=== PATIENT | male | born 1935 | race Caucasian/White ===

== ENCOUNTER 2017-06-07 06:37 | Emergency (ER) | payer MEDICARE ==
[~2017-06-07] VITALS: Ht 172.7 cm; Wt 88.5 kg
[2017-06-07] MEDS ORDERED: ATORVASTATIN CA40 MG PO (06:55)
[2017-06-07] MEDS ORDERED: COZAAR 50 MG TA50 M2 PO (06:55)
[2017-06-07] MEDS ORDERED: LOPRESSOR50 PO (06:56)
[2017-06-07] MEDS ORDERED: METFORMIN HCL500 MG PO (06:56)
[2017-06-07] MEDS ORDERED: REQUIP 1 MG TABL1 M1 PO (06:56)
[2017-06-07] MEDS ORDERED: OMEPRAZOLE40 MG PO (06:56)
[2017-06-07 08:08] VITALS: BP 126/80
== END 2017-06-07 08:10 | disposition home or self-care (01) ==
LOC: M.ERS 06:37
DX: S01.01XA Laceration without foreign body of scalp, initial encounter (principal); I10 Essential (primary) hypertension; E78.00 Pure hypercholesterolemia, unspecified; G25.81 Restless legs syndrome; Z87.442 Personal history of urinary calculi; Z85.46 Personal history of malignant neoplasm of prostate; Z88.8 Allergy status to other drugs, medicaments and biological substances; W01.190A Fall on same level from slipping, tripping and stumbling with subsequent striking against furniture, initial encounter; Y93.89 Activity, other specified; Y92.89 Other specified places as the place of occurrence of the external cause; Y99.8 Other external cause status

== ENCOUNTER → 2017-10-23 | Outpatient (CLI) | payer MEDICARE ==
[~2017-10-23] MED LIST: ASPIR 8181 MG PO; ATORVASTATIN CA40 MG PO; COZAAR 50 MG TA50 M2 PO; LOPRESSOR50 PO; METFORMIN HCL500 MG PO; OMEPRAZOLE40 MG PO; PLAVIX 75 MG TA75 M1 PO; REQUIP 1 MG TABL1 M1 PO; VITAMINC500 PO
[2017-10-23 09:34] LABS: CALCIUM 9.3 mg/dL (8.5-10.1); CREATININE 1.1 mg/dL (0.6-1.3); POTASSIUM 4.1 mmol/L (3.5-5.1)
== END ==
LOC: M.LAB 08:22
PROVIDERS: Nurse Practitioner
DX: I50.31 Acute diastolic (congestive) heart failure (principal)

== ENCOUNTER → 2017-11-13 | Outpatient (CLI) | payer MEDICARE ==
--- NOTE | 2017-11-18 08:09 | PF ---
[address] [address] PULMONARY FUNCTION REPORT Name: ERLINDA CRUZ Room: [facility]#: [id number] Admission: 11/13/17 Attend Phys: Margo Sandoval RN Discharge: Date of : 39 Report #: [id number] THIS REPORT FOR: //name// CC: Jose Cartagena PULMONARY FUNCTION TEST DATE OF STUDY: 11/13/2017. REQUESTING PHYSICIAN: Margo Sandoval, nurse practitioner. FINDINGS: Spirometry reveals a normal FEV1 of 2.96 and FVC of 4.17. FEV1/FVC ratio is 71%. Mid flows are normal. No significant change seen after inhaled bronchodilators. Lung volumes by plethysmography are normal. Diffusion capacity is mildly diminished. The patient did have some trouble with reproducing test results. IMPRESSION: Study does not reveal any evidence of a significant obstructive or restrictive process. There is some mild decrease in diffusion capacity; clinical correlation advised. <ELECTRONICALLY SIGNED> By: Mary Lou Isbell MD 11/18/17 0809 0923 1207Mary Lou Isbell MD /nt
== END ==
LOC: M.PUL 09:30
DX: I50.32 Chronic diastolic (congestive) heart failure (principal); R06.09 Other forms of dyspnea; Z95.1 Presence of aortocoronary bypass graft

== ENCOUNTER 2017-12-18 09:04 | Observation (INO) | payer MEDICARE ==
[~2017-12-18] VITALS: Ht 172.7 cm; Wt 95.7 kg
--- NOTE | ~2017-12-18 | H ---
[address] [address] HISTORY AND PHYSICAL Name: ERLINDA CRUZ Room: [address] Evaristo Thompson#: [id number] Admission: 12/18/17 Attend Phys: Jose Jules MD Discharge: 12/19/17 Date of : 37 Report #: [id number] THIS REPORT FOR: //name// Please refer to the History and Physical performed in the physician's office. By: [id number] Records Staff ANGEL LUIS /HALINA
[~2017-12-18 09:04] MED LIST changes: -ASPIR 8181 MG PO; -PLAVIX 75 MG TA75 M1 PO; -VITAMINC500 PO
[2017-12-18 09:17] VITALS: BP 136/71
[2017-12-18] MEDS ORDERED: VITAMINC500 PO (09:23)
[2017-12-18] MEDS ORDERED: ASPIR 8181 MG PO (09:23)
[2017-12-18 09:40] LABS: HEMATOCRIT 37.3 % (42.0-52.0); HEMOGLOBIN 12.7 gm/dL (14.0-18.0); MCH 31.6 pg (26.0-34.0); MCHC 34.1 g/dL (28.0-37.0); MCV 92.6 fL (80.0-100.0); MPV 7.7 fl. (7.2-11.1); RBC 4.03 mil/uL (4.50-6.00); RDW-CV 13.9 % (10.5-14.5); WBC 5.3 thou/uL (4.0-11.0)
--- NOTE | 2017-12-18 09:41 | EKG ---
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
[2017-12-18 09:46] LABS: ANION GAP 7 mmol/L (7-16); APTT 28.8 Seconds (25.0-31.3); BUN 18 mg/dL (7-18); CALCIUM 8.9 mg/dL (8.5-10.1); CHLORIDE 107 mmol/L (98-107); CO2 28 mmol/L (21-32); CREATININE 1.1 mg/dL (0.6-1.3); GLUCOSE 120 mg/dL (70-99); INR 1.1; PROTIME 10.8 Seconds (9.20-11.50); SODIUM 142 mmol/L (136-145)
[2017-12-18 09:50] LABS: ALBUMIN 3.7 g/dL (3.4-5.0); ALKALINE PHOSPHATASE 53 U/L (46-116); CHOLESTEROL 151 mg/dL (<200); HDL CHOLESTEROL 52 mg/dL (>40); LDL CHOLESTEROL 82 mg/dL (<100); SERUM ASSESSMENT Clear; SGOT 18 U/L (15-37); SGPT 21 U/L (30-65); TC:HDL 2.9 Ratio (Not establshd); TOTAL BILIRUBIN 0.3 mg/dL (<0.1-1.0); TOTAL PROTEIN 6.6 g/dL (6.4-8.2); TRIGLYCERIDE 88 mg/dL (<150); VLDL 18 mg/dL (<40)
[2017-12-18 15:07] VITALS: BP 141/65
[2017-12-18 15:23] VITALS: BP 129/56
[2017-12-18 16:15] VITALS: BP 119/67
--- NOTE | 2017-12-18 17:40 | NUR ---
ASSUMED CARE OF PT AT 1615. VSS AT THIS TIME. PT IS NSR ON THE MONITOR. PT TOLERATING ROOM AIR, WILL OBTAIN A BOXED LUNCH FOR THIS PT. PT IS ON BEDREST PXN UNTIL 1830 PER PHYSICIAN ORDER, HOWEVER PT HAS RLS AND HAS DIFFICULTY REMAINING STILL MEDICATION PATCH APPLIED PRIOR TO ADMISSION TO ASSIST WITH RLS. PT EDUCATED ON NEED FOR HIM TO REMAIN STILL. DRESSING IS CDI AT THIS TIME. WILL CONTINUE TO MONITOR AND ASSESS.
--- NOTE | 2017-12-18 18:45 | NUR ---
PT UP EATING DINNER AT THIS TIME. BEDREST PXN ENDED AT 183. PT HAS C/O RLS AND HAD DIFFICULTY REMAINING FLAT AND STILL, BUT DRSG IS CDI IN RT GROIN, AND NO S/SX OF BLEEDING AT THIS TIME. PT VSS, NSR ON THE MONITOR. PT SBA AT THIS TIME AND IS AT BEDSIDE. PT TOLERATING RA WITH NO COMPLAINTS OF PAIN OR SOA AT THIS TIME. PT IS TO HAVE NS RUNNING AT 100/HR UNTIL 2029-WILL INFORM NOC NURSE.
[2017-12-18 20:00] VITALS: BP 104/47
[2017-12-19] VITALS: BP 116/63
[2017-12-19 03:59] VITALS: BP 126/79
--- NOTE | 2017-12-19 03:59 | NUR ---
ASSUMED PT CARE AT 1930. NURSING ASSESSMENT COMPLETED AT START OF SHIFT. PT VOICED NO CONCERNS, DENIES PAIN THIS SHIFT. AFEBRILE, TRACING SR ON HEART MONITOR. HOURLY ROUNDING COMPLETED. RIGHT GROIN CATH SITE CLEAN,DRY,INTACT. CALL LIGHT WITHIN REACH.
[2017-12-19 04:18] LABS: HEMATOCRIT 32.3 % (42.0-52.0); MCH 31.6 pg (26.0-34.0); MCHC 34.2 g/dL (28.0-37.0); MCV 92.4 fL (80.0-100.0); MPV 7.6 fl. (7.2-11.1); RBC 3.49 mil/uL (4.50-6.00); RDW-CV 13.5 % (10.5-14.5); WBC 6.8 thou/uL (4.0-11.0)
[2017-12-19 04:55] LABS: ALBUMIN 3.1 g/dL (3.4-5.0); CALCIUM 8.3 mg/dL (8.5-10.1); POTASSIUM 4.2 mmol/L (3.5-5.1); TOTAL BILIRUBIN 0.3 mg/dL (<0.1-1.0); TOTAL PROTEIN 5.4 g/dL (6.4-8.2); TROPONIN-I LEVEL 0.45 ng/mL (<0.06)
[2017-12-19 07:45] VITALS: BP 131/71
[2017-12-19 09:18] VITALS: BP 131/71
[2017-12-19] MEDS ORDERED: PLAVIX 75 MG TA75 M1 PO (09:24)
[2017-12-19 09:49] VITALS: BP 131/71
--- NOTE | 2017-12-20 17:28 | EKG ---
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: BRANDON : 1935 Requested By: oJse Jules Order Number: [id number] Reading MD: Jose Jules Measurements Intervals [place] Rate: 73 P: 52 NM: 216 QRS: 59 QRSD: 149 T: 34 QT: 442 QTc: 488 Interpretive Statements Sinus rhythm Borderline prolonged NM interval Right bundle branch block Compared to ECG 12/18/2017 09:23:58 No significant changes Electronically Signed On 12-20-2017 17:28:21 CDT by Jose Jules [email or web address] <ELECTRONICALLY SIGNED> By: Jose Jules MD, [facility] 12/20/17 1728 1651 1651 Jose Jules MD, [facility] /EPI
--- NOTE | 2017-12-22 10:59 | CARD ---
[address] [address] CARDIAC CATH REPORT Name: ERLINDA CRUZ Room: [address] Evaristo Thompson#: [id number] Admission: 12/18/17 Attend Phys: Jose Jules MD Discharge: 12/19/17 Date of : 37 Report #: [id number] THIS REPORT FOR: //name// APPROVED REPORT Study performed: 12/18/2017 12:04:03 Patient Details Patient Status: Out-Patient Room #: The patient is a 82 year-old male Event Personnel Jose Jules Backing In Machine Tender, Samia Gruber RN RN, Victorina Bo RTR Scrub, Jacqueline Soriano RN Monitor, Ramon Green Wire Puller, Main Smith (R) Monitor Procedures Performed PTCA Single Vessel RCA; left heart catheterization left ventriculography selective coronary artery &andgraft study Indication Unstable angina Risk Factors Family History, Hypercholesterolemia, Hypertension Previous Procedures/Diagnoses Previous PCI Admission/Lab Medications/Medications given during procedure Aspirin, Platelet Aff. Inhib., Angiomax bolus and infusion Procedure Narrative The patient was brought electively to the Cardiac Catheterization Laboratory and was prepped and draped in a sterile manner. The right femoral was infiltrated with 1% Lidocaine subcutaneous anesthesia. A 6fr Ultimum Sheath sheath was inserted into the Right Femoral Artery. Coronary angiography was performed using coronary diagnostic catheters. The right coronary system was accessed and visualized with a Diagnostic JR4 catheter. The left coronary system was accessed and visualized with a Diagnostic JL4 catheter. The left ventricle was accessed and visualized with a Diagnostic Angled Pigtail catheter. Left ventricular/Aortic Valve [place] [address] CARDIAC CATH REPORT Name: ERLINDA CRUZ Room: [address] Evaristo Thompson#: [id number] Admission: 12/18/17 Attend Phys: Jose Jules MD Discharge: 12/19/17 Date of : 37 Report #: [id number] pullback. Closure device was deployed with a Fr Mynx 6Fr/7Fr. The patient tolerated the procedure well and there were no complications associated with the procedure. There was no hematoma. Intraoperative Conscious Sedation Sedation start time: 12:37 Case end Time: 14:31 Fentanyl 100 mcg Versed 4 mg Fluoro Time: 44.9 minutes Dose: DAP 700722 cGycm2 5104 mGy Contrast Type and Amount: Omnipaque 150 ml [place] Artery Percent Stenosis Widely patent HENRY graft to the LAD Widely patent saphenous vein graft to marginal branch of the circumflex Diagnostic Cath Left Main 0% narrowing LAD 100% mid vessel occlusion Circumflex 100% mid circumflex occlusion Right Coronary 30% ostial narrowing with tandem 70 and 90% stenosis of the posterolateral branch of the distal right coronary artery Left Ventriculography The left ventricle is normal in size with normal contractility. The left ventricular ejection fraction is estimated to be 60%. Left ventricular wall motion abnormalities are present. There is no mitral insufficiency. There is mild inferobasilar hypokinesis IVUS Intravascular Ultrasound was performed on the right posterior descending artery vessel. IVUS Findings Mini Trek RX 1.5 X 8 Hemodynamics The aortic pressure is 134/60 mmHg with a mean of 74 mmHg. The left ventricular pressure is 132/1 mmHg with a mean of mmHg. The left ventricular end diastolic pressure is 10 [place] [address] CARDIAC CATH REPORT Name: ERLINDA CRUZ Room: [address]#: [id number] Admission: 12/18/17 Attend Phys: Jose Jules MD Discharge: 12/19/17 Date of : 37 Report #: [id number] PCI Technique Lesion Anticoagulation was achieved with Angiomax. Patient was preloaded with Angiomax IV 13.5 ml. Percutaneous coronary intervention was performed on the right posterior descending artery. The lesion stenosis prior to intervention was 90% with ORLIN 3 flow. A 6F 3DRC Guide Catheter was used to engage the ostium. A [employer]: Samba.me Flex 300cm Interventional Guidewire was used to cross the lesion. BALLOON DILATION A Balloon catheter Mini Trek OTW 1.2 X 8 was inserted and inflated up to 10.00atm for 19seconds. Additional Inflation: 14.00atm for 14seconds. Additional Inflation: 14.00atm for 12seconds. Final angiography reveals 30 % stenosis with ORLIN 3 flow. PCI Technique Lesion Percutaneous coronary intervention was performed on the right posterior descending artery. BALLOON DILATION A Balloon catheter Mini Trek RX 1.5 X 8 was inserted and inflated up to 16.00atm for 16seconds. Additional Inflation: 20.00atm for 15seconds. Conclusion #1 significant coronary artery disease characterized by the following: A total occlusion mid LAD B total occlusion of the mid circumflex C 30% ostial with sequential 70 and 90% posterolateral branch stenosis in the distal portion of the dominant right coronary artery #2 graft study characterized by the following: A widely patent HENRY graft to the LAD B widely patent saphenous vein graft to marginal branch of the circumflex #3 normal global left ventricular systolic function, estimate ejection fraction being 60% with mild [place] [address] CARDIAC CATH REPORT Name: ERLINDA CRUZ Chandler [address]#: [id number] Admission: 12/18/17 Attend Phys: Jose Jules MD Discharge: 12/19/17 Date of : 37 Report #: [id number] #4 normal left-sided hemodynamics study #5 successful percutaneous transluminal coronary angioplasty at the sites of sequential 70 and 90% posterolateral branch stenosis of the distal right coronary artery with 20 and 40% residual narrowings and ORLIN-3 flow the distal circulation Recommendations Cardiac Risk Reduction Program Aggressive Medical Therapy Medications Administered Aspirin (any) Clopidogrel Diagnostic Cath Approved by: Jose Jules MD Date/Time: 12/22/2017 10:58:02 <ELECTRONICALLY SIGNED> By: Ramon Green MD, [facility] 12/22/17 1059 1059 1059Ramon Green MD, FAC /INF
--- NOTE | 2018-01-04 09:12 | D ---
[address] [address] DISCHARGE SUMMARY Name: NANCY,ERLINDA Chandler Room: [address] Evaristo Thompson#: [id number] Admission: 12/18/17 Attend Phys: Jose Jules MD Discharge: 12/19/17 Date of : 37 Report #: [id number] THIS REPORT FOR: //name// CC: Dr. Mitzi Cartagena DATE OF SERVICE: 12/19/2017 FINAL DIAGNOSES: 1. Unstable angina. 2. Coronary artery disease, status post percutaneous transluminal coronary angioplasty to distal right coronary artery. 3. Status post remote bypass surgery. 4. Hyperlipidemia. 5. Hypertension. HOSPITAL SUMMARY: The patient is an 82-year-old man room with remote bypass surgery in [place], [place] in 2006. He had been having his typical angina and it was increasing in frequency and severity. He underwent a diagnostic cardiac catheterization electively. He was found to have a patent HENRY to LAD. His LAD is occluded mid body. He has a patent vein graft, which has jumped to 2 obtuse marginal vessels of the circumflex. The [place] circumflex is occluded proximally. The right coronary artery was widely patent and was not grafted. The distal PDA, which was a tppoe-zv-oqcwki sized vessel, had 2 high-grade stenoses in the 80% range. Both of those were treated with PTCA only because of the tortuosity of the [place] vessel and they were unable to be treated with intracoronary stents. There was a good angiographic result post procedurally. DISCHARGE MEDICATIONS: Include 81 mg of aspirin daily, atorvastatin 40 mg daily, he has been taking alternating doses and other medications will remain unchange including Toprol 50 mg daily, ropinirole, and omeprazole. Follow up with nurse practitioner in 4 weeks. <ELECTRONICALLY SIGNED> By: Jose Jules MD, FACC 01/04/18911 0 1616Jose Jules MD, FACC /nt
== END 2017-12-19 10:20 | disposition home or self-care (01) ==
LOC: M.CL 09:04 → M.2W 15:07 → M.TBA-CV 15:07 → M.2W 15:07
PROVIDERS: ADMIT Internal Medicine Cardiovascular Disease
DX: I25.110 Atherosclerotic heart disease of native coronary artery with unstable angina pectoris (principal); E78.5 Hyperlipidemia, unspecified; I10 Essential (primary) hypertension; E78.00 Pure hypercholesterolemia, unspecified; E11.9 Type 2 diabetes mellitus without complications; R79.1 Abnormal coagulation profile; G47.30 Sleep apnea, unspecified; G25.81 Restless legs syndrome; Z87.891 Personal history of nicotine dependence; Z95.1 Presence of aortocoronary bypass graft

== ENCOUNTER → 2018-01-14 | Outpatient (CLI) | payer MEDICARE ==
[~2018-01-14] MED LIST changes: +ASPIR 8181 MG PO; +PLAVIX 75 MG TA75 M1 PO; +VITAMINC500 PO
[2018-01-14 10:39] LABS: TROPONIN-I LEVEL <0.06 ng/mL (<0.06)
== END ==
LOC: M.LAB 10:03
PROVIDERS: Family Medicine
DX: I25.10 Atherosclerotic heart disease of native coronary artery without angina pectoris (principal); Z95.5 Presence of coronary angioplasty implant and graft

== ENCOUNTER → 2018-01-22 | Outpatient (CLI) | payer MEDICARE ==
[2018-01-22 12:37] LABS: ABSOLUTE EOSINOPHILS 0.3 thou/uL (0.0-0.7); ABSOLUTE LYMPHOCYTES 1.6 thou/uL (0.8-5.3); ABSOLUTE MONOCYTES 0.6 thou/uL (0.0-1.2); ABSOLUTE NEUTROPHILS 3.7 thou/uL (1.6-8.1); BASOPHILS 0.6 %; EOSINOPHILS 4.7 %; HEMATOCRIT 36.2 % (42.0-52.0); HEMOGLOBIN 12.2 gm/dL (14.0-18.0); LYMPHOCYTES 25.3 %; MCH 31.4 pg (26.0-34.0); MCHC 33.6 g/dL (28.0-37.0); MCV 93.6 fL (80.0-100.0); MONOCYTES 9.4 %; MPV 7.6 fl. (7.2-11.1); NUCLEATED RBCS 0 /100WBC; PLATELET COUNT* 253 thou/uL (150-400); RBC 3.87 mil/uL (4.50-6.00); RDW-CV 13.6 % (10.5-14.5); WBC 6.1 thou/uL (4.0-11.0)
[2018-01-22 12:58] LABS: ALBUMIN 3.8 g/dL (3.4-5.0); CREATININE 1.1 mg/dL (0.6-1.3); POTASSIUM 4.4 mmol/L (3.5-5.1); TOTAL BILIRUBIN 0.3 mg/dL (<0.1-1.0); TOTAL PROTEIN 6.7 g/dL (6.4-8.2)
[2018-01-22 13:32] LABS: ESR (SEDRATE) 33 mm/hr (0-20)
== END ==
LOC: M.LAB 12:04
PROVIDERS: Orthopaedic Surgery
DX: M25.512 Pain in left shoulder (principal); E78.00 Pure hypercholesterolemia, unspecified; I50.32 Chronic diastolic (congestive) heart failure; I11.0 Hypertensive heart disease with heart failure; E78.5 Hyperlipidemia, unspecified; I25.10 Atherosclerotic heart disease of native coronary artery without angina pectoris; Z85.46 Personal history of malignant neoplasm of prostate; Z79.899 Other long term (current) drug therapy

== ENCOUNTER 2018-08-17 16:27 | Inpatient (IN) | payer MEDICARE ==
[~2018-08-17] VITALS: Ht 172.7 cm; Wt 86.2 kg
[2018-08-17] MEDS ORDERED: REQUIP3 MG PO ×2 (16:42→20:42)
[2018-08-17 16:53] LABS: ABSOLUTE BASOPHILS 0.1 thou/uL (0.0-0.2); ABSOLUTE EOSINOPHILS 0.2 thou/uL (0.0-0.7); ABSOLUTE LYMPHOCYTES 1.9 thou/uL (0.8-5.3); ABSOLUTE MONOCYTES 0.9 thou/uL (0.0-1.2); ABSOLUTE NEUTROPHILS 4.9 thou/uL (1.6-8.1); BASOPHILS 0.7 %; EOSINOPHILS 2.9 %; HEMATOCRIT 35.3 % (42.0-52.0); HEMOGLOBIN 11.9 gm/dL (14.0-18.0); LYMPHOCYTES 23.7 %; MCH 29.4 pg (26.0-34.0); MCHC 33.6 g/dL (28.0-37.0); MCV 87.5 fL (80.0-100.0); MONOCYTES 11.3 %; MPV 7.8 fl. (7.2-11.1); NUCLEATED RBCS 0 /100WBC; PLATELET COUNT* 319 thou/uL (150-400); POLYS 61.4 %; RBC 4.04 mil/uL (4.50-6.00); RDW-CV 15.5 % (10.5-14.5)
[2018-08-17 17:04] LABS: ALBUMIN 3.7 g/dL (3.4-5.0); CALCIUM 9.5 mg/dL (8.5-10.1); CREATININE 1.2 mg/dL (0.6-1.3); POTASSIUM 4.1 mmol/L (3.5-5.1); TOTAL BILIRUBIN 0.2 mg/dL (<0.1-1.0); TOTAL PROTEIN 6.9 g/dL (6.4-8.2)
[2018-08-17 17:15] LABS: URINE BLOOD 3+ (Negative); URINE CLARITY CLOUDY; URINE COLOR RED; URINE GLUCOSE-RANDOM NEGATIVE (Negative); URINE KETONES 2+ (Negative); URINE PROTEIN 3+ (Negative)
[2018-08-17 17:17] LABS: ICTOTEST (BILI CONFIRMATORY) Negative (Negative); URINE BILIRUBIN 3+ (Negative); URINE LEUKOCYTES-REFLEX 3+ (Negative); URINE NITRITE-REFLEX POSITIVE (Negative)
[2018-08-17 17:18] LABS: BACTERIA-REFLEX >30 Many /HPF (None Seen); CASTS None Seen /LPF (None Seen); CRYSTALS None Seen /LPF (None Seen); SQUAMOUS NONE SEEN /LPF (0-3); URINE RBC >20 Many /HPF (0-2); URINE WBC-REFLEX >25 Many /HPF (0-5)
[2018-08-17 18:44] LABS: APTT 28.5 Seconds (25.0-31.3); PROTIME 10.3 Seconds (9.20-11.50)
[2018-08-17 20:37] VITALS: BP 127/58
[2018-08-17] MEDS ORDERED: COZAAR 25 MG TA25 M1 PO (20:44)
[2018-08-17 20:45] VITALS: BP 138/63
--- NOTE | 2018-08-18 06:05 | NUR ---
PATIENT ARRIVED ON FLOOR FROM ER ABOUT 2039. PATIENT ADMISSION HISTORY AND ASSESSMENT WAS COMPLETED CHARTED. PATIENT HAS CONTINUOUS BLADDER IRRIAGTION GOING AND HAS NEEDED TO BE HAND IRRIGATED FOR CLOTS A FEW TIMES. URINE REMAINS RED WITH SOME CLOTS. IV FLUIDS ARE INFUSING AT 100 ML/HR. WILL CONTINUE TO MONITOR.
[2018-08-18 07:55] VITALS: BP 126/70
[2018-08-18 16:45] VITALS: BP 105/54
--- NOTE | 2018-08-18 17:36 | NUR ---
PATIENT RESTING IN BED. PATIENT DENIES ANY PAIN. PATIENT IS UP AD ROHAN AND HAS WALKED IN HALLS TODAY. HSU CATHETER WITH CONTINUOUS BLADDER IRRIGATION, UINE IS STILL LIGHT PINK. BLADDER MANUALLY IRRIGATED BY UROLOGIST THIS AFTERNOON. PATIENT HAS GOOD APPETITE, WILL BE NPO AFTER MIDNIGHT. PATIENT DENIES ANY NEEDS AT THIS TIME. CALL LIGHT WITHIN REACH. WILL CONTINUE TO MONITOR.
[2018-08-18 21:00] VITALS: BP 108/59
--- NOTE | 2018-08-19 06:47 | NUR ---
PATIENT SLEPT MOST OF THE NIGHT. IV REMAINS SALINE LOCKED. CBI CONTINUES URINE IS A LIGHT PINK NOW NO CLOTS HAVE BEEN SEEN. PATIENT HAS BEEN NPO FOR POSSIBLE PROCEDURE TODAY. WILL CONTINUE TO MONITOR.
[2018-08-19 07:32] VITALS: BP 119/61
[2018-08-19 09:13] VITALS: BP 119/61
[2018-08-19 11:50] LABS: MCH 29.8 pg (26.0-34.0); MCHC 34.1 g/dL (28.0-37.0); MCV 87.3 fL (80.0-100.0); MPV 7.1 fl. (7.2-11.1); RBC 2.86 mil/uL (4.50-6.00); RDW-CV 15.4 % (10.5-14.5); WBC 6.1 thou/uL (4.0-11.0)
[2018-08-19 12:06] LABS: CALCIUM 8.7 mg/dL (8.5-10.1); POTASSIUM 4.1 mmol/L (3.5-5.1)
[2018-08-19 12:24] LABS: HEMOGLOBIN 8.5 gm/dL (14.0-18.0)
--- NOTE | 2018-08-19 13:15 | EKG ---
[place] [address] ELECTROCARDIOGRAM REPORT Name: ERLINDA CRUZ Room: [address] ADM IN .R.#: [id number] Admission: 08/17/18 Attend Phys: Parker Koch MD Discharge: Date of : 37 Report #: [id number] THIS REPORT FOR: //name// [facility] Test Date: 2018-08-19 Test Time: 09:32:52 Pat Name: ERLINDA CRUZ Department: Room: [address] Gender: M Cover Remover: : 1935 Requested By: Ramon Bangura Order Number: [id number] Roseanne MD: Bubba Crowley Measurements Intervals [place] Rate: 73 P: 36 MA: 224 QRS: 44 QRSD: 153 T: 14 QT: 449 QTc: 495 Interpretive Statements Sinus rhythm Prolonged MA interval Right bundle branch block Abnormal inferior Q waves Compared to ECG 12/18/2017 16:51:03 no change Electronically Signed On 08-19-2018 13:14:56 CDT by Bubba Crowley [email or web address] <ELECTRONICALLY SIGNED> By: Bubba Crowley MD, [facility] 08/19/18 1314 Bubba Crowley MD, FAC /EPI
[2018-08-19 16:00] VITALS: BP 125/50
--- NOTE | 2018-08-19 16:12 | NUR ---
ASSESSMENT COMPLETE. PT HAD SURGERY THIS AM. PT STABLE SINCE POST OP. VSS. PT IS ON ROOM AIR. DENIES PAIN AND N/V. TOLERATED LUNCH. PT HAS CONTINOUS BLADDER IRRIGATION, LIGHT BLOOD TINGED. IV SALINE LOCKED. PT IS FALL RISK. UP STANDBY ASSIST WITH WALKER. PT HAS NO OTHER CONCERNS AT THIS TIME. SEE ASSESSMENT AND VITALS FOR OTHER DETAILS. CALL LIGHT WITHIN REACH, WILL CONTINUE PLAN OF CARE
--- NOTE | 2018-08-19 16:43 | NUR ---
SW met with pt to complete initial assessment, introduce self, and SW role. Pt alert, oriented. Pt lives at home with his . Pt independent with ADLs and mobility usually. Pt does not anticipate any dc needs at this time. SW to continue to follow.
[2018-08-19 20:00] VITALS: BP 137/60
[2018-08-20 05:05] LABS: HEMATOCRIT 24.2 % (42.0-52.0); HEMOGLOBIN 8.3 gm/dL (14.0-18.0); MCH 29.9 pg (26.0-34.0); MCHC 34.5 g/dL (28.0-37.0); MCV 86.6 fL (80.0-100.0); MPV 8.3 fl. (7.2-11.1); RBC 2.79 mil/uL (4.50-6.00); RDW-CV 15.4 % (10.5-14.5); WBC 8.2 thou/uL (4.0-11.0)
[2018-08-20 05:31] LABS: CALCIUM 8.4 mg/dL (8.5-10.1); CREATININE 1.2 mg/dL (0.6-1.3)
--- NOTE | 2018-08-20 05:58 | NUR ---
ASSESSMENT: PT REMAIN ALERT AND ORIENT TIMES THREE. CBI CONTINUES WITH URINE LIGHT PINK. CBI CONTINUES AT A SLOW RATE. NO CLOTS WERE NOTED. NO BM THIS SHIFT. TOLERATING PO INTAKE. STATE THAT THE TORADOL DOES NOTHING FOR HER PAIN. O2 DECREASED TO 1 LTIER - PRN WITH AMBULATION. SATS WERE 99%-100%. SLOW PROGRESS TOWARDS DC GOALS, WILL CONTINUE TO MONITOR.
[2018-08-20 09:00] VITALS: BP 111/47
--- NOTE | 2018-08-20 10:53 | EKG ---
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 08/20/18 1052 1 Bubba Crowley MD, [facility] /EPI
--- NOTE | 2018-08-20 11:00 | NUR ---
ASSUMED PT CARE AT 0700 PT IS ALERT AND ORIENTED X 4 PT DENIES PAIN OR SOA ON RA, PT IS UP WITH SBA PT IS NOT A FALL RISK, UROLOGY ORDERED TO REMOVE HSU STOP CBI ONCE PT VOIDS BLADDER SCAN PT RESIDUAL NEEDS TO BE BELOW 250ML FOR PT TO DISCHARGE PT STATES UNDERSTANDING, WILL CONTINUE TO MONITOR
[2018-08-20] MEDS ORDERED: KEFLEX500 M1 PO (14:15)
[2018-08-20 14:22] VITALS: BP 111/47
--- NOTE | 2018-08-21 10:07 | PATH ---
[address] [address] PATHOLOGY RPT PROCEDURE Name: ERLINDA HERNANDEZ Room: [address] IN M.R.#: [id number] Admission: 08/17/18 Date of : 39 Discharge: 08/20/18 Report #: [id number] Path Case #: [id number] [facility] Accession Number: [id number] . 01 Material submitted: . bladder - BLADDER TUMOR . 01 Clinical history: . Blood clot Bladder tumor . 02 Diagnosis: Bladder tumor: - PAPILLARY UROTHELIAL CARCINOMA, HIGH-GRADE, WITH FOCAL INVASION OF LAMINA PROPRIA (SUBEPITHELIAL CONNECTIVE TISSUE). - Benign muscularis propria present. See comment. (CARROLL:jessica; 08/20/2018) MBQuincy/08/20/2018 . 02 Comment: No vascular invasion is seen. Reviewed with Dr. Tj Topete who agrees with the diagnosis. (ACRROLL:mold presser; 08/20/2018) . 02 Electronically signed: . Robert Allen MD, Pathologist NPI- [id number] . 01 Gross description: . The specimen is received in formalin, labeled "Erlinda Hernandez, bladder tumor" and consists of multiple fragments of soft friable eng-brown tissue to solid pink glistening tissue weighing 7 g and measuring 4.5 x 3.3 x 1.1 cm in aggregate. The more solid tissue is submitted in A1-A2 with the rest of the specimen in A3-A4. (SDY; 08/19/2018) SYU/SYU . 02 Pathologist provided ICD-10: C67.9 . 02 CPT . 862822 Specimen Comment: A courtesy copy of this report has been sent to Specimen Comment: [phone], , . Specimen Comment: Report sent to ,DR GARCIA / DR GEIGER Performed at: [id number] [place] [address] PATHOLOGY RPT PROCEDURE Name: ERLINDA HERNANDEZ Room: [address] IN ..#: [id number] Admission: 08/17/18 Date of : 39 Discharge: 08/20/18 Report #: [id number] Path Case #: [id number] MD Erlinda Barber MD Phone: [phone] Performed at: [facility] [address], [place], [place] [id number] MD Robert Allen MD Phone: [phone]
--- NOTE | 2018-08-22 10:39 | OP ---
[facility] [address] [place] [address] OPERATIVE REPORT Name: NANCYERLINDA Chandler Room: [address]R.#: [id number] Admission: 08/17/18 Attend Phys: Parker Koch MD Discharge: 08/20/18 Date of : 39 Report #: [id number] THIS REPORT FOR: //name// CC: Parker Cartagena DATE OF SERVICE: 08/19/2018 PREOPERATIVE DIAGNOSES: Bladder mass, gross hematuria with urinary clot retention. POSTOPERATIVE DIAGNOSES: Bladder mass, gross hematuria with urinary clot retention. PROCEDURE: Cystoscopy with clot evacuation and transurethral resection of large bladder tumor. SURGEON: Ramon Bangura M.D. ANESTHESIA: General. ESTIMATED BLOOD LOSS: 100 mL. DRAINS: A 24-Bengali 3-way Rkaus catheter for continuous bladder irrigation. SPECIMENS: Bladder tumor. COMPLICATIONS: None. INDICATIONS: This is an 83-year-old male admitted with gross hematuria and clot retention. CT scan was worrisome for dependent clot in the bladder as well as a bladder mass or masses along the left lateral wall. Alternatives for management have been discussed and the patient has elected to undergo cystoscopy with clot evacuation, possible dilation of urethral stricture, bladder biopsies and/or transurethral resection of bladder tumor. Risks of procedure were explained including but not limited to bleeding, infection, anesthesia, cardiopulmonary and vascular events, injuries to urethra, bladder, ureters and surrounding structures, possible need for further procedures. He voices clear understanding and wants to proceed. DESCRIPTION OF PROCEDURE: The patient was on perioperative IV antibiotics. After induction of general anesthesia, he was positioned, prepped and draped in the lithotomy position. Timeout procedure was performed. Cystourethroscopy was performed. The anterior urethra was normal. The vesicourethral anastomosis from radical prostatectomy was open. There was some erythema along the trigone and posterior wall likely related to radiation and/[place] [address] OPERATIVE REPORT Name: RELINDA CRUZ Chandler Room: [address]#: [id number] Admission: 08/17/18 Attend Phys: Parker Koch MD Discharge: 08/20/18 Date of : 39 Report #: [id number] catheter. Clot was noted dependently in the bladder and was irrigated out through the scope. Systematic examination with 30 and 70 degree scopes was performed. The ureteral orifices were orthotopic. No blood was seen from either. They were not involved with tumor. Large tumor was noted on the left lateral wall progressing toward the anterior wall of the bladder. This was larger than 5 cm across. A small amount of clot was noted adherent to it as well. The scope was exchanged for 24-Bengali resectoscope apparatus and transurethral resection of bladder tumor was performed with cutting current. Pinpoint coagulating current was used for hemostasis were necessary. All visible tumor was resected and evacuated with an Ellik evacuated. Repeat examination after resection reveals no visible residual tumor. Tumor was well away from the expected course of the ureters. There were no remaining tumor fragments in the bladder and hemostasis was excellent. The bladder was left partially filled and the scope was removed. Lidocaine jelly was given per urethra. A 24-Bengali 3-way urethral catheter was placed and the balloon inflated with 20 mL of sterile water. The catheter was irrigated with the piston syringe and irrigates easily with no clots, tumor fragments or difficulty irrigating. This was connected to continuous bladder irrigation. Bimanual exam does not reveal any pelvic masses. B and O suppository was given. The patient tolerated the procedure well and was taken to the recovery room in stable condition. Further management will depend on pathology results and his clinical progress. <ELECTRONICALLY SIGNED> By: Ramon Bangura MD 08/22/18 1039 1108 1132Ramon Bangura MD /nt
--- NOTE | 2018-08-22 12:46 | CON ---
[address] [address] CONSULTATION Name: ERLINDA CRUZ Room: [address] IN M.R.#: [id number] Admission: 08/17/18 Attend Phys: Parker Koch MD Discharge: 08/20/18 Date of : 39 Report #: [id number] THIS REPORT FOR: //name// CC: Parker Cartagena DO DATE OF SERVICE: 08/19/2018 HISTORY OF PRESENT ILLNESS: The patient is an 83-year-old white male who I was asked to see in the hospital today because of his history of coronary artery disease. The patient has an extensive past medical history. He apparently presented with shortness of breath back in 1994, was found to have multivessel coronary artery disease. He underwent triple vessel bypass surgery in [place], [place]. He apparently has done well since that time. The patient moved to [facility] about 3 years ago. Last summer, the patient began to have chest pain. He saw my partner, Dr. Jules. He underwent a cardiac catheterization here at [facility] as an outpatient, last November. He was found to have a patent HENRY graft to the LAD. The LAD itself was chronically occluded. There is a patent vein graft that went into marginal branch of circumflex. The [place] circumflex was occluded. The right coronary artery was not bypassed, but it was widely patent. The distal right coronary artery gave off a small posterior descending branch with two high grade 80% stenoses. These underwent balloon angioplasty, but because of tortuosity of the vessel, stenting could not be performed. There was a good angiographic result. The patient was placed on Plavix. He has done well since that time. He last saw Dr. Jules in March when he was doing well. Echocardiogram showed an ejection fraction of 50-55%. The patient states he has done well since that time, although is not very active because of weakness of his legs. He denies any chest pain, shortness of breath, palpitations, or syncope. He has been taking his aspirin and Plavix. Three days ago, the patient noticed some blood in his urine. He came to the hospital. A Kraus catheter was placed. There was blood in the urine. He is scheduled for cystoscopy. I was asked to see him for preoperative evaluation. PAST MEDICAL HISTORY: Significant for previous cholecystectomy, surgery for prostate cancer, shoulder surgery, LASIK therapy on his eyes. He has history of hypertension, diabetes, and hyperlipidemia. MEDICATIONS: Consists of metformin, metoprolol, Plavix, ropinirole, Lipitor, omeprazole, losartan, and aspirin. ALLERGIES: HE HAS A PREVIOUS INTOLERANCE TO BENADRYL. FAMILY HISTORY: [place] [address] CONSULTATION Name: ERLINDA CRUZ Room: [address]#: [id number] Admission: 08/17/18 Attend Phys: Parker Koch MD Discharge: 08/20/18 Date of : 39 Report #: [id number] SOCIAL HISTORY: He is . He and his live in [place]. Quit smoking a pipe in the past. No alcohol abuse. REVIEW OF SYSTEMS: He has had no history of stroke, asthma, peptic ulcer disease, liver disease. Apparently, he has only one functioning kidney. He has a history of prostate cancer. No chronic skin condition. No history of psychiatric illness. PHYSICAL EXAMINATION: GENERAL: Revealed an elderly male, lying in bed. He appeared in no distress. VITAL SIGNS: His blood pressure 130/60, pulse 60. He was afebrile. HEENT: He is anicteric. Conjunctivae pink. Mucous membranes moist. NECK: Neck veins are not distended. No carotid bruits. Neck is supple. CHEST: Clear to auscultation. CARDIOVASCULAR: Regular rate and rhythm, grade 2 systolic ejection murmur. ABDOMEN: Soft. EXTREMITIES: Had no edema. Dorsalis pedis pulse 3+ bilaterally. SKIN: Warm, dry. NEUROLOGIC: Nonfocal. LYMPH: No adenopathy. MUSCULOSKELETAL: No joint effusion. IMAGING STUDIES: There does not appear to be an ECG in his chart. His workup in the Emergency Room, he actually had a CT scan of the abdomen performed because of the hematuria that showed bladder distention, possible blood clot. There was a nodular sessile thickening along the bladder wall suggestive of transitional cell carcinoma, atrophic right kidney. LABORATORY DATA: Sodium 139, BUN 33, creatinine 1.2, glucose ____. His white blood cell count 8.0, hemoglobin 11.9. Urinalysis: 3+ protein, 3+ blood. IMPRESSION AND RECOMMENDATIONS: 1. Coronary artery disease. The patient had previous balloon angioplasty last November. No recurrent angina or heart failure. The patient appears stable from cardiac standpoint at this time. Because of hematuria, I would hold aspirin and Plavix. 2. Hematuria. Possible bladder cancer. The patient is scheduled for cystoscopy. The patient has now been off his aspirin and Plavix for 3 days. The patient appears to have no contraindication to cystoscopy at this time. 3. Hypertension. The patient is on a beta yariel and ARB. 4. Hyperlipidemia. The patient is on a statin drug. 5. History of prostate cancer. <ELECTRONICALLY SIGNED> By: Bubba Crowley MD, FACC 08/22/18 1246 0842 0148David Aureliano Crowley MD, FAC /nt
== END 2018-08-20 14:45 | disposition home or self-care (01) | DRG 669 ==
LOC: M.ERS 16:27 → M.3W 18:24 → M.TBA-ER 18:24 → M.3W 20:37
PROVIDERS: Physician Assistant; Urology; ADMIT Internal Medicine
PROC: 0TBB8ZZ Excision of Bladder, Via Natural or Artificial Opening Endoscopic (ICD-10-PCS; principal; 2018-08-17)
PROC: 0TCB8ZZ Extirpation of Matter from Bladder, Via Natural or Artificial Opening Endoscopic (ICD-10-PCS; 2018-08-17)
DX: D49.4 Neoplasm of unspecified behavior of bladder (principal); N39.0 Urinary tract infection, site not specified; I10 Essential (primary) hypertension; E78.00 Pure hypercholesterolemia, unspecified; N26.1 Atrophy of kidney (terminal); D50.9 Iron deficiency anemia, unspecified; R33.9 Retention of urine, unspecified; I25.10 Atherosclerotic heart disease of native coronary artery without angina pectoris; E11.9 Type 2 diabetes mellitus without complications; E78.5 Hyperlipidemia, unspecified; R31.0 Gross hematuria; Z85.46 Personal history of malignant neoplasm of prostate; Z88.8 Allergy status to other drugs, medicaments and biological substances; Z79.899 Other long term (current) drug therapy; Z79.82 Long term (current) use of aspirin; Z79.84 Long term (current) use of oral hypoglycemic drugs; Z95.1 Presence of aortocoronary bypass graft; Z90.49 Acquired absence of other specified parts of digestive tract; Z87.891 Personal history of nicotine dependence; Z84.89 Family history of other specified conditions; Z82.49 Family history of ischemic heart disease and other diseases of the circulatory system

== ENCOUNTER → 2018-11-05 | Outpatient (CLI) | payer MEDICARE ==
[~2018-11-05] MED LIST changes: +B 12 INJECTION; +B-COMPLEX 100 I30 ML INJECTION; +COZAAR 25 MG TA25 M1 PO; +KEFLEX500 M1 PO; +REQUIP3 MG PO
[2018-11-05 10:15] LABS: ABSOLUTE EOSINOPHILS 0.4 thou/uL (0.0-0.7); HEMATOCRIT 26.8 % (42.0-52.0); HEMOGLOBIN 8.4 gm/dL (14.0-18.0); MCH 24.2 pg (26.0-34.0); MCHC 31.5 g/dL (28.0-37.0); MCV 76.9 fL (80.0-100.0); MPV 6.9 fl. (7.2-11.1); NUCLEATED RBCS 0 /100WBC; PLATELET COUNT* 376 thou/uL (150-400); RBC 3.49 mil/uL (4.50-6.00); RDW-CV 17.1 % (10.5-14.5); WBC 7.1 thou/uL (4.0-11.0)
[2018-11-05 10:21] LABS: URINE BILIRUBIN NEGATIVE (Negative); URINE BLOOD TRACE (Negative); URINE CLARITY CLEAR; URINE COLOR YELLOW; URINE GLUCOSE-RANDOM NEGATIVE (Negative); URINE KETONES NEGATIVE (Negative); URINE LEUKOCYTES 1+ (Negative); URINE NITRITE NEGATIVE (Negative); URINE PROTEIN 1+ (Negative); URINE SPECIFIC GRAVITY 1.015 (1.005-1.030); URINE UROBILINOGEN 0.2 E.U./dl (0.2-1.0)
[2018-11-05 10:30] LABS: BACTERIA 1-9 Few /HPF (None Seen); CASTS None Seen /LPF (None Seen); MUCUS None Seen strn/LPF (None Seen); SQUAMOUS 0-3 Few /LPF (0-3); URINE RBC 0-2 Rare /HPF (0-2); URINE WBC >25 Many /HPF (0-5)
[2018-11-05 10:31] LABS: CRYSTALS None Seen /LPF (None Seen)
[2018-11-05 10:31] LABS: ALBUMIN 3.1 g/dL (3.4-5.0); CALCIUM 9.3 mg/dL (8.5-10.1); POTASSIUM 4.2 mmol/L (3.5-5.1); TOTAL BILIRUBIN 0.2 mg/dL (<0.1-1.0); TOTAL PROTEIN 6.4 g/dL (6.4-8.2)
[2018-11-05 10:54] LABS: ABSOLUTE BASOPHILS 0.1 thou/uL (0.0-0.2); ABSOLUTE LYMPHOCYTES 1.3 thou/uL (0.8-5.3); ABSOLUTE MONOCYTES 0.3 thou/uL (0.0-1.2); ANISOCYTOSIS 1+; ATYPICAL LYMPHS 6 %; HYPOCHROMASIA 1+; PLATELET ESTIMATE ADEQUATE
[2018-11-06 05:09] LABS: IgA 66 mg/dL (61-437); IgG 493 mg/dL (700-1600); IgM 54 mg/dL (15-143)
[2018-11-06 13:13] LABS: KAPPA FREE LIGHT CHAINS 33.4 mg/L (3.3-19.4); LAMBDA FREE LIGHT CHAINS 22.9 mg/L (5.7-26.3)
--- NOTE | 2018-11-07 11:53 | HEMONC ---
[address] [address] HEMATOLOGY ONCOLOGY NOTE Name: ERLINDA CRUZ Room: [facility]#: [id number] Admission: 11/05/18 Attend Phys: Issa Garcia MD Discharge: Date of : 37 Report #: [id number] THIS REPORT FOR: //name// CC: Issa Cartagena DO DATE OF SERVICE: 11/05/2018 REASON FOR CONSULTATION: Anemia. SUBJECTIVE: This 83-year-old male who is being evaluated because of severe anemia. The patient was found to have a bladder cancer around Easter time and at that time, he reported passing a lot of blood clots that required irrigation. After that, the patient underwent a TURBT and he has been following with Dr. Bangura at [facility]. Currently, he self-catheterize himself 3 times a day. He denies any gross hematuria. He denies any blood in the stool. He had a recent colonoscopy and EGD by Dr. Jimenez. The patient reported significant fatigue after that health event. In addition to that, per his , he looked pale. He had exercise intolerance. He denies any chest pain; however, he developed shortness of breath with minimal exercise. The patient per medication list has been on aspirin and no other anticoagulants or antiplatelets has been reported. REVIEW OF SYSTEMS: All systems were reviewed. It was negative except the above. PAST MEDICAL HISTORY: Diabetes, coronary artery disease, status post CABG, dyslipidemia, hypertension. The patient had sleep apnea and restless leg syndrome. History of prostate cancer treated with surgery and radiation, most recently bladder cancer was treated with TURBT. MEDICATIONS LIST: Aspirin 81 mg p.o. daily; however, this has been discontinued, atorvastatin 40 mg p.o. daily, losartan 50 mg p.o. daily, metformin 500 mg p.o. twice a day, metoprolol 50 mg twice a day, omeprazole 40 mg p.o. daily, Requip 1 mg 2 tablets at dinner, vitamin C, B12 and iron supplements. FAMILY HISTORY: Brother with head and neck cancer; however, he was a heavy smoker. He smokes a pipe for 10 years, quit at the age of 42. He drinks alcohol occasionally. ALLERGIES: He IS ALLERGIC TO BENADRYL PER HIS RECORDS. PHYSICAL EXAMINATION: VITAL SIGNS: Today, blood pressure is 124/75, pulse is 104, respirations 20, [place] [address] HEMATOLOGY ONCOLOGY NOTE Name: ERLINDA CRUZ Room: [facility]#: [id number] Admission: 11/05/18 Attend Phys: Issa Garcia MD Discharge: Date of : 37 Report #: [id number] sat is 92% on room air, blood pressure is 97.3. GENERAL: The patient was sitting in chair, was not in acute distress. LUNGS: Clear to auscultations bilaterally. HEART: Regular rate and rhythm. S1, S2 within normal limits. ABDOMEN: Soft, nontender, nondistended, bowel sounds positive. EXTREMITIES: No edema, no cyanosis, no clubbing. LABORATORY DATA: His labs for today are pending. ASSESSMENT AND PLAN: An 83-year-old male who has been recently diagnosed with a bladder cancer, status post transurethral resection of bladder tumor. The patient reported significant amount of hematuria and passing clots. He has been having progressive anemia since that time. I do suspect the patient had iron deficiency due to blood loss. We will arrange for intravenous iron, Feraheme 510 mg intravenously 2 doses. In addition to that, I would like to obtain iron studies, B12, folate, serum level. We will obtain peripheral blood smear hemolysis parameters and serum electrophoresis. We will follow up the patient in 4 weeks after receiving intravenous iron to assess his response. <ELECTRONICALLY SIGNED> By: Issa Garcia MD 11/07/18 1153 0948 [id number] Garcia MD /nt
[2018-11-07 14:12] LABS: GLOBULIN TOTAL 2.7 g/dL (2.2-3.9); M-SPIKE Not Observed g/dL (Not Observed)
[2018-11-08 11:08] LABS: HEMOGLOBIN 12.2 g/dL (13.0-17.7)
== END ==
LOC: M.RTH 05:26
PROVIDERS: Internal Medicine
DX: Z08 Encounter for follow-up examination after completed treatment for malignant neoplasm (principal); D50.9 Iron deficiency anemia, unspecified

== ENCOUNTER 2018-11-07 04:10 | Inpatient (IN) | payer MEDICARE ==
[~2018-11-07] VITALS: Ht 172.7 cm; Wt 92.5 kg
[~2018-11-07 04:10] MED LIST changes: -B 12 INJECTION; -B-COMPLEX 100 I30 ML INJECTION
[2018-11-07 04:19] VITALS: BP 156/66
[2018-11-07] MEDS ORDERED: B-COMPLEX 100 I30 ML INJECTION (04:30)
[2018-11-07] MEDS ORDERED: B 12 INJECTION (04:32)
[2018-11-07 04:50] LABS: ABSOLUTE EOSINOPHILS 0.2 thou/uL (0.0-0.7); ABSOLUTE LYMPHOCYTES 1.2 thou/uL (0.8-5.3); ABSOLUTE MONOCYTES 0.9 thou/uL (0.0-1.2); ABSOLUTE NEUTROPHILS 8.4 thou/uL (1.6-8.1); BASOPHILS 0.4 %; EOSINOPHILS 2.1 %; HEMOGLOBIN 8.4 gm/dL (14.0-18.0); LYMPHOCYTES 11.1 %; MCH 24.3 pg (26.0-34.0); MCHC 32.1 g/dL (28.0-37.0); MCV 75.7 fL (80.0-100.0); MONOCYTES 8.3 %; MPV 6.6 fl. (7.2-11.1); NUCLEATED RBCS 0 /100WBC; PLATELET COUNT* 356 thou/uL (150-400); POLYS 78.1 %; RBC 3.44 mil/uL (4.50-6.00); RDW-CV 17.3 % (10.5-14.5); WBC 10.7 thou/uL (4.0-11.0)
[2018-11-07 05:00] LABS: ANION GAP 10 mmol/L (7-16); BUN 26 mg/dL (7-18); CALCIUM 9.3 mg/dL (8.5-10.1); CHLORIDE 106 mmol/L (98-107); CO2 23 mmol/L (21-32); GLUCOSE 113 mg/dL (70-99); POTASSIUM 4.2 mmol/L (3.5-5.1); SODIUM 139 mmol/L (136-145)
[2018-11-07 05:01] LABS: INR 1.1; PROTIME 11.1 Seconds (9.20-11.50)
[2018-11-07 05:06] LABS: URINE BILIRUBIN NEGATIVE (Negative); URINE BLOOD 1+ (Negative); URINE CLARITY CLEAR; URINE COLOR YELLOW; URINE GLUCOSE-RANDOM NEGATIVE (Negative); URINE KETONES NEGATIVE (Negative); URINE LEUKOCYTES-REFLEX 1+ (Negative); URINE NITRITE-REFLEX NEGATIVE (Negative); URINE PROTEIN NEGATIVE (Negative); URINE SPECIFIC GRAVITY 1.015 (1.005-1.030); URINE UROBILINOGEN 0.2 E.U./dl (0.2-1.0)
[2018-11-07 05:11] LABS: ALBUMIN 3.1 g/dL (3.4-5.0); ALKALINE PHOSPHATASE 80 U/L (46-116); LIPASE 98 U/L (73-393); NT-PRO BRAIN NAT PEPTIDE 544 pg/mL (<300); SGOT 19 U/L (15-37); SGPT 29 U/L (30-65); TOTAL BILIRUBIN 0.3 mg/dL (<0.1-1.0); TOTAL PROTEIN 6.3 g/dL (6.4-8.2); TROPONIN-I LEVEL <0.06 ng/mL (<0.06)
[2018-11-07 05:14] LABS: SQUAMOUS 0-3 Few /LPF (0-3); URINE WBC-REFLEX >25 Many /HPF (0-5); WBC CLUMPS Moderate (None Seen)
[2018-11-07 05:15] LABS: BACTERIA-REFLEX >30 Many /HPF (None Seen)
[2018-11-07 05:16] LABS: CASTS None Seen /LPF (None Seen); CRYSTALS None Seen /LPF (None Seen); MUCUS 0-3 Light strn/LPF (None Seen)
--- NOTE | 2018-11-07 07:47 | NUR ---
REPORT CALLED TO MARCELO. PATIENT IS A&O X4, UP WITH SBA, AND PLEASANT. LEFT A NOTE FOR HIS AND HE WILL CALL HER WHEN HE GETS SETTLED IN 108. VITALS TAKEN AND TRANSPORTED BY TECH.
[2018-11-07 07:48] VITALS: BP 128/66
[2018-11-07 07:50] VITALS: BP 114/53
[2018-11-07 10:11] LABS: % SATURATION 6 % (20-39); IRON 20 ug/dL (50-175)
--- NOTE | 2018-11-07 12:14 | NUR ---
SW met with pt and pt to complete initial assessment, introduce self, and SW role. Pt alert, oriented. Pt lives at home with and pt also has son and dtr in law who live nearby who provide assistance and support whenever needed. Pt and pt said that they think pt will be able to dc Sunday; and pt and pt do not anticipate any dc needs at this time.
[2018-11-07 16:00] VITALS: BP 94/50
--- NOTE | 2018-11-07 17:01 | EKG ---
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 : 1935 Requested By: Alvin Chery Order Number: [id number] MD: Tien Michel Measurements Intervals [place] Rate: 85 P: 37 TN: 210 QRS: 38 QRSD: 145 T: 15 QT: 397 QTc: 472 Interpretive Statements Sinus rhythm Right bundle branch block Abnormal inferior Q waves Compared to ECG 08/20/2018 08:52:45 First degree AV block no longer present Electronically Signed On 11-07-2018 17:01:38 CDT by Tien Michel [email or web address] <ELECTRONICALLY SIGNED> By: Tien Michel MD, [facility] 11/07/18 1701 0427 0427 Tien Michel MD, [facility] /EPI
--- NOTE | 2018-11-07 17:44 | NUR ---
PATIENT RESTING IN BED. PATIENT DENIES ANY PAIN. PATIENT IS UP AD ROHAN IN ROOM. PATIENT SEEN BY PHYSICAL THERAPY THIS AFTERNOON. PATIENT HAS GOOD APPETITE. PATIENT DENIES ANY NEEDS AT THIS TIME. CALL LIGHT WITHIN REACH. WILL CONTINUE TO MONITOR.
[2018-11-07 20:57] VITALS: BP 106/52
--- NOTE | 2018-11-08 04:31 | NUR ---
PATIENT HAS REMAINED ALERT AND ORIENTED X 4 THROUGHOUT THE SHIFT. RESTING AT INTERVALS. NPO AT MIDNIGHT PER ORDER FOR AM CT. STATED MILD HEARTBURN HS. MYLANTA PROVIDED. PATIENT STATES HE TAKES SOMETHING LIKE NEXIUM AT HOME. PER NOTE IT IS CURRENTLY BEING HELD. WILL SPEAK TO PHYSICIAN IN AM TO CLARIFY WITH PATIENT. UP WITH STEADY GAIT. VITAL SIGNS STABLE. CONTINUE TO MONITOR.
[2018-11-08 04:43] LABS: HEMATOCRIT 25.3 % (42.0-52.0); HEMOGLOBIN 8.1 gm/dL (14.0-18.0); MCH 24.5 pg (26.0-34.0); MCHC 32.1 g/dL (28.0-37.0); MCV 76.1 fL (80.0-100.0); MPV 7.1 fl. (7.2-11.1); RBC 3.32 mil/uL (4.50-6.00); RDW-CV 17.5 % (10.5-14.5); WBC 6.2 thou/uL (4.0-11.0)
[2018-11-08 04:47] LABS: CALCIUM 9.4 mg/dL (8.5-10.1); CREATININE 1.1 mg/dL (0.6-1.3); MAGNESIUM 1.8 mg/dL (1.8-2.4); POTASSIUM 4.2 mmol/L (3.5-5.1)
[2018-11-08 07:40] VITALS: BP 98/49
[2018-11-08 16:00] VITALS: BP 113/58
--- NOTE | 2018-11-08 16:51 | NUR ---
PATIENT UP AD ROHAN AROUND ROOM, NO DIFFICULTY NOTED. IV REMAINS SL, SCHED ABX INFUSED ORDERED. CT ABD/PELVIS THIS AM, PER DR. TRUJILLO RESULTS DO NOT NEED TO BE CALLED WOULD SEE THEM LATER. METFORMIN DC'D R/T ORAL AND IV CONTRAST. POSSIBLE DISCHARGE HOME TOMORROW WITH [facility].
[2018-11-08 19:50] VITALS: BP 108/55
--- NOTE | 2018-11-09 04:40 | NUR ---
PATIENT HAS REMAINED ALERT AND ORIENTED X 4 THROUGHOUT THE SHIFT AND RESTING AT INTERVALS ON HOURLY ROUNDS. REQUIP FOR RLS. UP INDEPENDENTLY IN ROOM. ADEQUATE URINE OUTPUT PER CATHETER. VITAL SIGNS STABLE WIATH LOW BP. HS METOPROLOL HELD. CONTINUE TO MONITOR.
[2018-11-09 07:30] VITALS: BP 106/54
[2018-11-09 09:16] VITALS: BP 106/54
--- NOTE | 2018-11-09 10:31 | NUR ---
PATIENT DISCHARGED TO HOME AT THIS TIME. PER DR. MEYERS PATIENT TO TAKE ABX LEFT OVER FROM HOME. SPOKE WITH DR. MONTALVO FROM UROLOGY AND AGREEABLE TO DISCHARGE PLAN, PATIENT TO GO HOME WITH [facility] CATHETER. PATIENT VERBALIZES UNDERSTANDING OF PAPERWORK, NO SCRIPTS. PATIENT AMBULATED OUT WITH NURSING STAFF AND ALL BELONGINGS.
--- NOTE | 2018-11-10 13:51 | CON ---
[address] [address] CONSULTATION Name: ERLINDA CRUZ Room: [address] IN .R.#: [id number] Admission: 11/07/18 Attend Phys: Lul Mckeon Discharge: 11/09/18 Date of : 37 Report #: [id number] THIS REPORT FOR: //name// CC: David Lake DATE OF SERVICE: 11/08/2018 INPATIENT CONSULTATION SUBJECTIVE: An 83-year-old male who is being seen in the clinic on 11/05/2018 due to anemia. The patient was evaluated and was suspected to have iron-deficiency anemia due to blood loss after he had a bladder cancer. I obtained a workup, which showed hemoglobin of 8.1 with an MCV of 76. In addition to that, there was no evidence of hemolysis. His creatinine has been within normal range. However, his saturation serum iron and ferritin were low. Serum protein electrophoresis did not show any evidence of M-spike with adequate B12 and folate level. The patient received first dose of Feraheme while inpatient, he was admitted after he had a UTI with encephalopathy. The patient started on intravenous Rocephin. His urine showed 1+ blood with wbc's and few squamous cell with many bacteria. By the time of evaluation today, the patient reported feeling much better. His hemoglobin has been stable 8.1. His encephalopathy has been recovering. REVIEW OF SYSTEMS: All systems were reviewed and it was negative except the above. PAST MEDICAL HISTORY: Bladder cancer, prostate cancer, diabetes mellitus, coronary artery disease, hypertension, sleep apnea. MEDICATIONS: Per admission list. ALLERGIES: BENADRYL. FAMILY HISTORY: Brother with head and neck cancer. SOCIAL HISTORY: The patient is a heavy smoker. Drinks alcohol occasionally. PHYSICAL EXAMINATION: VITAL SIGNS: Today, temperature is 36.8, pulse 75, blood pressure is 133/68, SpO2 was 96% on room air. GENERAL: The patient was sitting in chair, was not in acute distress. LUNGS: Clear to auscultations bilaterally. HEART: With regular rate and rhythm. S1, S2 within normal limits. ABDOMEN: Soft, nontender, nondistended, [place] [address] CONSULTATION Name: ERLINDA CRUZ Chandler Room: [address]#: [id number] Admission: 11/07/18 Attend Phys: Lul Mckeon Discharge: 11/09/18 Date of : 37 Report #: [id number] LABORATORY DATA: Today, WBC 6.2, hemoglobin 8.1, platelets 329, creatinine 1.1. ASSESSMENT AND PLAN: An 83-year-old male who has been evaluated because of iron-deficiency anemia. The patient was started on intravenous iron as outpatient. The patient received first out of 2 doses of Feraheme yesterday. I do recommend to repeat in 1 week. If the patient continues to be inpatient, we are going to proceed with that. However, my expectation is the patient will be discharged over the weekend. His hemoglobin has been stable. I would like to reserve transfusion if hemoglobin less than 8. In the meantime, we will monitor his hemoglobin response to iron in the next 2-3 weeks. <ELECTRONICALLY SIGNED> By: Issa Garcia MD 11/10/18 1351 1400 0027Molenard Garcia MD /nt
== END 2018-11-09 10:33 | disposition home or self-care (01) | DRG 871 ==
LOC: M.ERS 04:10 → M.TBA-ER 05:30 → M.ORTHSURG 08:14
PROVIDERS: Emergency Medicine; Internal Medicine; ADMIT Internal Medicine
DX: A41.9 Sepsis, unspecified organism (principal); G92 Toxic encephalopathy; N39.0 Urinary tract infection, site not specified; I10 Essential (primary) hypertension; E78.00 Pure hypercholesterolemia, unspecified; I25.10 Atherosclerotic heart disease of native coronary artery without angina pectoris; D50.9 Iron deficiency anemia, unspecified; E53.8 Deficiency of other specified B group vitamins; G62.9 Polyneuropathy, unspecified; G25.81 Restless legs syndrome; R33.9 Retention of urine, unspecified; R31.0 Gross hematuria; Z79.82 Long term (current) use of aspirin; Z79.899 Other long term (current) drug therapy; Z95.1 Presence of aortocoronary bypass graft; Z90.49 Acquired absence of other specified parts of digestive tract; Z85.46 Personal history of malignant neoplasm of prostate; Z88.8 Allergy status to other drugs, medicaments and biological substances; Z85.51 Personal history of malignant neoplasm of bladder; Z80.8 Family history of malignant neoplasm of other organs or systems; Z84.89 Family history of other specified conditions; Z87.891 Personal history of nicotine dependence

== ENCOUNTER → 2018-11-25 | Outpatient (CLI) | payer MEDICARE ==
[~2018-11-25] MED LIST changes: +B 12 INJECTION; +B-COMPLEX 100 I30 ML INJECTION
[2018-11-25 09:25] VITALS: BP 122/62
[2018-11-25 10:35] VITALS: BP 127/71
--- NOTE | 2018-11-25 10:46 | NUR ---
ARRIVED AMBULATORY. MADE SELF COMFORTABLE IN RECLINER. DENEIS ADVERSE REACTION TO INFUSION OF SAME 11/22/18. INFUSION COMPLETED AND TOLERATED WELL. DENIES QUESTIONS OR NEEDS AT DISCHARGE.
== END ==
LOC: M.INFUS 01:26
DX: D50.9 Iron deficiency anemia, unspecified (principal)

== ENCOUNTER → 2018-11-28 | Outpatient (CLI) | payer MEDICARE ==
[2018-11-28 09:15] VITALS: BP 109/63
--- NOTE | 2018-11-28 11:13 | NUR ---
ARRIVED AMBULATORY. MADE SELF COMFORTABLE IN RECLINER. DENEIS ADVERSE REACTION TO MULTIPLE INFUSION OF SAME. IV STARTED WITH OUT DIFFICULTY. INFUSION COMPLETED AND TOERATED WELL. DENEIS QUESTIONS OR NEEDS AT DISCHARGE.
== END ==
LOC: M.INFUS 05:18
DX: D50.9 Iron deficiency anemia, unspecified (principal)

== ENCOUNTER → 2018-12-02 | Outpatient (CLI) | payer MEDICARE ==
[2018-12-02 09:50] VITALS: BP 96/55
--- NOTE | 2018-12-02 13:04 | NUR ---
ARRIVED AMBULATORY. MADE SELF COMFORTABLE IN RECLINER. IV STARTED WITH OUT DIFFICULTY. DENIES ADVERSE REACTION TO MULTIPLE INFUSIONS OF SAME. INFUSION COMPLETED AND TOLERATED WELL. DENIES QUESTION OR NEED AT DISCHARGE.
== END ==
LOC: M.INFUS 01:24
DX: D50.9 Iron deficiency anemia, unspecified (principal)

== ENCOUNTER → 2018-12-05 | Outpatient (CLI) | payer MEDICARE ==
[2018-12-05 09:15] VITALS: BP 142/58
[2018-12-05 10:50] VITALS: BP 146/62
== END ==
LOC: M.INFUS 05:11
DX: D50.9 Iron deficiency anemia, unspecified (principal)

== ENCOUNTER → 2018-12-10 | Outpatient (CLI) | payer MEDICARE ==
[2018-12-10 10:15] LABS: ABSOLUTE EOSINOPHILS 0.3 thou/uL (0.0-0.7); ABSOLUTE MONOCYTES 1.1 thou/uL (0.0-1.2); ABSOLUTE NEUTROPHILS 5.6 thou/uL (1.6-8.1); BASOPHILS 0.3 %; EOSINOPHILS 2.8 %; HEMATOCRIT 34.3 % (42.0-52.0); HEMOGLOBIN 11.2 gm/dL (14.0-18.0); LYMPHOCYTES 30.5 %; MCH 26.6 pg (26.0-34.0); MCHC 32.5 g/dL (28.0-37.0); MCV 81.8 fL (80.0-100.0); MONOCYTES 10.9 %; MPV 6.9 fl. (7.2-11.1); NUCLEATED RBCS 0 /100WBC; PLATELET COUNT* 289 thou/uL (150-400); POLYS 55.5 %; RDW-CV 25.3 % (10.5-14.5)
--- NOTE | 2018-12-10 10:48 | HEMONC ---
[address] [address] HEMATOLOGY ONCOLOGY NOTE Name: ERLINDA CRUZ Room: [facility]#: [id number] Admission: 12/10/18 Attend Phys: Issa Garcia MD Discharge: Date of : 39 Report #: [id number] THIS REPORT FOR: //name// CC: Issa Cartagena DO DATE OF SERVICE: 12/10/2018 CLINIC NOTE DIAGNOSIS: Iron deficiency anemia. SUBJECTIVE: The patient presented today after he received intravenous iron. Last hemoglobin was checked around 4 weeks ago. Hemoglobin was 8.1 with an MCV of 76.1. The patient reported significant improvement in his symptoms. He has less fatigue. He is able to have more exercise tolerance. The patient denies any hematuria. He is supposed to have a followup cystoscopy later this month with his urologist. REVIEW OF SYSTEMS: All systems were reviewed. It was negative except the above. PAST MEDICAL, SOCIAL, AND FAMILY HISTORY: Unchanged from last visit. MEDICATIONS: List has been reviewed. Aspirin has been put on hold for now. PHYSICAL EXAMINATION: VITAL SIGNS: Blood pressure is 135/78, pulse 65, respirations 20, temperature 97.8, saturation is 93%. GENERAL: The patient was sitting in chair, was not in acute distress. LUNGS: Clear to auscultations bilaterally. HEART: Regular rate and rhythm. S1, S2 within normal limits. ABDOMEN: Soft, nontender, nondistended. Bowel sounds positive. ASSESSMENT AND PLAN: An 83-year-old male was evaluated because of iron deficiency anemia due to hematuria after transurethral resection of bladder tumor. At this point, the patient had clinical improvement after intravenous iron. I would like to repeat his hemoglobin today. Next followup will be in 2 months with repeated labs, CBC, ferritin, and iron profile. <ELECTRONICALLY SIGNED> By: Issa Garcia MD 12/10/18 1048 0952 1043Issa Garcia MD /nt
[2018-12-10 11:22] LABS: % SATURATION 31 % (20-39); IRON 78 ug/dL (50-175)
[2018-12-10 11:24] LABS: BURR CELLS 1+; OVALOCYTES 1+
[2018-12-10 11:25] LABS: ANISOCYTOSIS 2+
== END ==
LOC: M.RTH 05:18
PROVIDERS: Internal Medicine
DX: D50.9 Iron deficiency anemia, unspecified (principal); R31.9 Hematuria, unspecified

== ENCOUNTER → 2019-01-20 | Outpatient (CLI) | payer MEDICARE ==
[2019-01-20 09:11] LABS: ABSOLUTE EOSINOPHILS 0.2 thou/uL (0.0-0.7); ABSOLUTE LYMPHOCYTES 1.8 thou/uL (0.8-5.3); ABSOLUTE MONOCYTES 0.8 thou/uL (0.0-1.2); ABSOLUTE NEUTROPHILS 4.9 thou/uL (1.6-8.1); BASOPHILS 0.3 %; HEMATOCRIT 37.2 % (42.0-52.0); HEMOGLOBIN 12.6 gm/dL (14.0-18.0); LYMPHOCYTES 23.5 %; MCH 28.3 pg (26.0-34.0); MCHC 33.9 g/dL (28.0-37.0); MCV 83.5 fL (80.0-100.0); MONOCYTES 10.1 %; MPV 6.7 fl. (7.2-11.1); NUCLEATED RBCS 0 /100WBC; PLATELET COUNT* 272 thou/uL (150-400); POLYS 63.1 %; RBC 4.46 mil/uL (4.50-6.00); RDW-CV 25.1 % (10.5-14.5); WBC 7.8 thou/uL (4.0-11.0)
[2019-01-20 09:22] LABS: CALCIUM 9.7 mg/dL (8.5-10.1); CREATININE 1.1 mg/dL (0.6-1.3); POTASSIUM 4.1 mmol/L (3.5-5.1); TOTAL BILIRUBIN 0.3 mg/dL (<0.1-1.0); TOTAL PROTEIN 6.5 g/dL (6.4-8.2)
[2019-01-20 10:28] LABS: ESR (SEDRATE) 30 mm/hr (0-20)
[2019-01-20 10:35] LABS: HYPOCHROMASIA 2+; MICROCYTES 2+; PLATELET ESTIMATE ADEQUATE
[2019-01-20 10:40] LABS: ANISOCYTOSIS 3+; OVALOCYTES 1+; POIKILOCYTOSIS 1+
== END ==
LOC: M.LAB 08:41
PROVIDERS: Internal Medicine Gastroenterology
DX: D50.9 Iron deficiency anemia, unspecified (principal)

== ENCOUNTER 2019-02-04 09:29 | Inpatient (IN) | payer MEDICARE ==
[~2019-02-04] VITALS: Ht 172.7 cm; Wt 83.1 kg
[~2019-02-04 09:29] MED LIST changes: -LASIX 40 MG TAB40 MG PO
[2019-02-04 09:36] VITALS: BP 151/65
[2019-02-04] MEDS ORDERED: OMEPRAZOLE40 MG PO (09:42)
[2019-02-04 10:10] LABS: ABSOLUTE EOSINOPHILS 0.4 thou/uL (0.0-0.7); ABSOLUTE LYMPHOCYTES 2.2 thou/uL (0.8-5.3); ABSOLUTE MONOCYTES 0.9 thou/uL (0.0-1.2); ABSOLUTE NEUTROPHILS 4.1 thou/uL (1.6-8.1); BASOPHILS 0.6 %; EOSINOPHILS 5.7 %; HEMATOCRIT 37.2 % (42.0-52.0); HEMOGLOBIN 12.5 gm/dL (14.0-18.0); LYMPHOCYTES 29.1 %; MCH 28.6 pg (26.0-34.0); MCHC 33.5 g/dL (28.0-37.0); MCV 85.3 fL (80.0-100.0); MONOCYTES 11.2 %; MPV 7.2 fl. (7.2-11.1); NUCLEATED RBCS 0 /100WBC; PLATELET COUNT* 297 thou/uL (150-400); POLYS 53.4 %; RBC 4.37 mil/uL (4.50-6.00); RDW-CV 23.4 % (10.5-14.5); WBC 7.6 thou/uL (4.0-11.0)
[2019-02-04 10:19] LABS: ANION GAP 10 mmol/L (7-16); BUN 21 mg/dL (7-18); CALCIUM 9.6 mg/dL (8.5-10.1); CHLORIDE 102 mmol/L (98-107); CO2 24 mmol/L (21-32); CREATININE 1.2 mg/dL (0.6-1.3); GLUCOSE 97 mg/dL (70-99); POTASSIUM 4.5 mmol/L (3.5-5.1); SODIUM 136 mmol/L (136-145)
[2019-02-04 10:21] LABS: INR 1.1; PROTIME 11.1 Seconds (9.20-11.50)
[2019-02-04 10:30] LABS: ALBUMIN 3.2 g/dL (3.4-5.0); ALKALINE PHOSPHATASE 85 U/L (46-116); LIPASE 90 U/L (73-393); NT-PRO BRAIN NAT PEPTIDE 976 pg/mL (<300); SGOT 28 U/L (15-37); SGPT 26 U/L (30-65); TOTAL BILIRUBIN 0.3 mg/dL (<0.1-1.0); TOTAL PROTEIN 6.5 g/dL (6.4-8.2); TROPONIN-I LEVEL <0.06 ng/mL (<0.06)
[2019-02-04 10:43] LABS: PLATELET ESTIMATE ADEQUATE
[2019-02-04 10:44] LABS: ANISOCYTOSIS 1+; HYPOCHROMASIA 1+; OVALOCYTES 1+; POIKILOCYTOSIS 1+; SCHISTOCYTES Occasional
[2019-02-04 13:30] VITALS: BP 111/80
[2019-02-04 14:00] VITALS: BP 139/68
--- NOTE | 2019-02-04 16:55 | EKG ---
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: EV : 1935 Requested By: Alvin Chery Order Number: [id number] MD: Tien Michel Measurements Intervals [place] Rate: 64 P: 48 MN: 211 QRS: 65 QRSD: 150 T: 25 QT: 473 QTc: 488 Interpretive Statements Sinus rhythm Right bundle branch block Compared to ECG 11/07/2018 04:27:10 Inferior Q waves no longer present Q waves no longer present Electronically Signed On 02-04-2019 16:54:50 CDT by Tien Michel [email or web address] <ELECTRONICALLY SIGNED> By: Tien Michel MD, [facility] 02/04/19 1654 7 Tien Michel MD, [facility] /EPI
--- NOTE | 2019-02-04 18:18 | NUR ---
PT ARRIVED TO ROOM 227 AT APPROX 1400, PT A/O X4, DENIES PAIN, UP AD ROHAN, INSTRUCTED FOR NURSES HELP TO BR WHILE ON THE O2. PT VERBALIZED UNDERSTANDING, HAS BEEN USING CALL LIGHT APPROPRIATLY. PT SR ON THE MONITOR. VSS, MEDS REVIEWED, ADMISSION DONE CHARTED. WILL CONTINUE TO MONITOR.
[2019-02-04 19:50] VITALS: BP 114/57
[2019-02-04 23:53] VITALS: BP 105/56
[2019-02-05 04:00] VITALS: BP 123/64
--- NOTE | 2019-02-05 05:23 | NUR ---
PT ALERT AND ORIENTED. VSS ON 3L NC. ASSESSMENT DOCUMENTED. MEDS GIVEN PER EMAR. PT IS STEADY ON HIS FEET. CALLS OUT FOR ASSISTANCE IN GETTING O2 TUBING OUT OF THE WAY TO AVOID TRIPPING ON IT. PT DENIES PAIN N/V THIS SHIFT. CALL LIGHT WITHON REACH. HOURLY ROUNDINGS MADE. WILL CONTINUE TO MONITOR.
[2019-02-05 08:00] VITALS: BP 109/61
--- NOTE | 2019-02-05 10:32 | NUR ---
ORDER TO WEIGHT PT RECEIVED. PT WAS WEIGHTED IN BED AT 1000AM . 183.3 LBS.
[2019-02-05 11:18] VITALS: BP 115/61
--- NOTE | 2019-02-05 12:36 | 2DMMODE ---
[place] [address] 2 D/M-MODE ECHOCARDIOGRAM Name: ERLINDA CRUZ Room: [place] [address] ADM IN [facility]#: [id number] Admission: 02/04/19 Attend Phys: Ilya Lake Discharge: Date of : 39 Date of Service: 02/05/19 1236 Report #: [id number] THIS REPORT FOR: //name// APPROVED REPORT Study performed: 02/05/2019 10:31:34 EXAM: Comprehensive 2D, Doppler, and color-flow Echocardiogram Patient Location: In-Patient Room #: [facility] Status: routine BSA: 1.99 HR: 70 bpm BP: 109/61 mmHg Rhythm: NSR Other Information Study Quality: Good Indications Dyspnea 2D Dimensions IVSd: 9.07 (7-11mm) LVOT Diam: 20.25 (18-24mm) LVDd: 46.64 mm PWd: 8.96 (7-11mm) Ascending Ao: 36.27 (22-36mm) LVDs: 30.53 (25-40mm) Aortic Root: 35.35 mm Volumes Left Atrial Volume (Systole) LA ESV Index: 23.50 mL/m2 Aortic Valve AoV Peak Sathish.: 1.33 m/s AO Peak Gr.: 7.08 mmHg LVOT Max P.71 mmHg AO Mean Gr.: 3.82 mmHg LVOT Mean P.15 mmHg LVOT Max V: 1.30 m/s AO V2 VTI: 28.49 cm LVOT Mean V: 0.81 m/s SHAUNA (VTI): 3.31 cm2 LVOT V1 VTI: 29.29 cm Mitral Valve E/A Ratio: 0.96 MV Decel. Time: 294.02 ms MV E Max Sathish.: 0.85 m/[place] [address] 2 D/M-MODE ECHOCARDIOGRAM Name: ERLINDA CRUZ Room: [address] IN [facility]#: [id number] Admission: 02/04/19 Attend Phys: Ilya Lake Discharge: Date of : 39 Date of Service: 02/05/19 1236 Report #: [id number] MV PHT: 85.27 ms MVA (PHT): 2.58 cm2 TDI E/Lateral E': 7.08 E/Medial E': 8.50 Medial E' Sathish.: 0.10 m/s Lateral E' Sathish.: 0.12 m/s Pulmonary Valve PV Peak Sathish.: 1.10 m/s PV Peak Gr.: 4.86 mmHg Tricuspid Valve RAP Estimate: 5.00 mmHg TR Peak Gr.: 30.70 mmHg RVSP: 35.00 mmHg PA Pressure: 35.00 mmHg Left Ventricle The left ventricle is normal size. There is normal LV segmental wall motion. There is normal left ventricular wall thickness. Left ventricular systolic function is normal. The left ventricular ejection fraction is within the normal range. LVEF is 55-60%. Grade I - abnormal relaxation pattern. Right Ventricle The right ventricle is normal size. The right ventricular systolic function is normal. Atria The left atrium size is normal. The right atrium size is normal. Aortic Valve Mild aortic valve sclerosis. No aortic regurgitation is present. There is no aortic valvular stenosis. Mitral Valve The mitral valve is normal in structure. Trace mitral regurgitation. No evidence of mitral valve stenosis. Tricuspid Valve The tricuspid valve is normal in structure. Mild tricuspid regurgitation. Mild pulmonary hypertension. Pulmonic Valve The pulmonary valve is normal in structure. Mild [place] [address] 2 D/M-MODE ECHOCARDIOGRAM Name: ERLINDA CRUZ [place] Room: [address] IN [facility]#: [id number] Admission: 02/04/19 Attend Phys: Ilya Lake Discharge: Date of : 39 Date of Service: 02/05/19 1236 Report #: [id number] Great Vessels The aortic root is normal in size. IVC is not well visualized. Pericardium There is no pericardial effusion. <Conclusion> The left ventricle is normal size. There is normal left ventricular wall thickness. Left ventricular systolic function is normal. The left ventricular ejection fraction is within the normal range. LVEF is 55-60%. Grade I - abnormal relaxation pattern. The right ventricle is normal size. The left atrium size is normal. Mild aortic valve sclerosis. No aortic regurgitation is present. There is no aortic valvular stenosis. The mitral valve is normal in structure. The tricuspid valve is normal in structure. Mild tricuspid regurgitation. Mild pulmonary hypertension. There is no pericardial effusion. There is normal LV segmental wall motion. <ELECTRONICALLY SIGNED> By: Ramon Green MD, FACC 02/05/19 1236 1236 1236 Ramon Green MD, FACC /INF
--- NOTE | 2019-02-05 14:34 | NUR ---
MET WITH PT AND TO DISCUSS HOME SITUATION/DC PLANNING. PT LIVES WITH , BOTH ARE INDEPENDENT AND ACTIVE. PT USES NO EQUIPMENT, STILL DRIVES. THEY DO HAVE A SHOWER BENCH IN [place]. PT HASN'T HAD HH OR BEEN TO SNF, DID DO OUTPT THERAPY AFTER A SHOULDER SURGERY. PLAN IS FOR PT TO RETURN HOME AT DC. WILL FOLLOW
[2019-02-05 16:07] VITALS: BP 93/55
[2019-02-05 20:00] VITALS: BP 91/57
[2019-02-06] VITALS: BP 86/44
[2019-02-06 04:00] VITALS: BP 101/57
[2019-02-06 04:31] LABS: CALCIUM 9.9 mg/dL (8.5-10.1); CREATININE 1.1 mg/dL (0.6-1.3); POTASSIUM 3.9 mmol/L (3.5-5.1)
--- NOTE | 2019-02-06 07:52 | NUR ---
PT DENIED ANY SOA OR RESPIRATORY DISTRESS OR DISCOMFORT. PT RESTED THROUGH THE NIGHT WITHOUT INCIDENT. TRACING SR 1D BBB ON MONITOR. CALL LIGHT IN REACH. HOUIRLY ROUNDING FOR SAFETY.
[2019-02-06 08:00] VITALS: BP 124/69
--- NOTE | 2019-02-06 08:35 | NUR ---
assumed pt care report received from nurse. pt is alert, awake, oriented x 4. sinus rythm bbb on the teletypesetter monitor. vss. pt has no complaint. pt mentioned going home today. pt on 3 l nc. o2 saturation is 97%. will continue to monitor pt
--- NOTE | 2019-02-06 08:38 | NUR ---
patient I & O monitored and charted.
[2019-02-06 11:49] VITALS: BP 105/56
[2019-02-06] MEDS ORDERED: LASIX 40 MG TAB40 MG PO (12:48)
--- NOTE | 2019-02-06 14:27 | NUR ---
dc instructions given. pt states understanding.pt needs o2 3 l at home. oxygen tank was ordered and brought to pt room. pt wheeled out of his room with o2 3 l nc. with and volunteer.
--- NOTE | 2019-02-06 14:35 | NUR ---
PT ECHO RESULT WAS SENT TO DR PUENTE'S OFFICE REQUESTED.
--- NOTE | 2019-03-05 09:40 | NUR ---
corey faxed certificate of medical necessity to [facility]. [phone].
== END 2019-02-06 14:25 | disposition home or self-care (01) | DRG 291 ==
LOC: M.ERS 09:29 → M.TBA-ER 11:37 → M.2W 11:37
PROVIDERS: Emergency Medicine; Registered Nurse; ADMIT Internal Medicine
DX: I13.0 Hypertensive heart and chronic kidney disease with heart failure and stage 1 through stage 4 chronic kidney disease, or unspecified chronic kidney disease (principal); I50.33 Acute on chronic diastolic (congestive) heart failure; J96.01 Acute respiratory failure with hypoxia; E78.00 Pure hypercholesterolemia, unspecified; I25.10 Atherosclerotic heart disease of native coronary artery without angina pectoris; N18.3 Chronic kidney disease, stage 3 (moderate); D64.9 Anemia, unspecified; E78.5 Hyperlipidemia, unspecified; G25.81 Restless legs syndrome; Z84.89 Family history of other specified conditions; Z95.1 Presence of aortocoronary bypass graft; Z90.49 Acquired absence of other specified parts of digestive tract; Z85.46 Personal history of malignant neoplasm of prostate; Z85.51 Personal history of malignant neoplasm of bladder; Z88.8 Allergy status to other drugs, medicaments and biological substances; Z79.899 Other long term (current) drug therapy

== ENCOUNTER → 2019-02-04 | Outpatient (CLI) | payer MEDICARE ==
[~2019-02-04] MED LIST changes: -ATORVASTATIN CA40 MG PO; -B 12 INJECTION; +LASIX 40 MG TAB40 MG PO; +LIPITOR40 MG PO; +VITAMIN B12 INJECTION
--- NOTE | 2019-02-07 14:46 | HEMONC ---
[address] [address] HEMATOLOGY ONCOLOGY NOTE Name: ERLINDA CRUZ Room: [facility]#: [id number] Admission: 02/04/19 Attend Phys: Issa Garcia MD Discharge: Date of : 39 Report #: [id number] THIS REPORT FOR: //name// CC: Issa Cartagena DO DATE OF SERVICE: 02/04/2019 DIAGNOSIS: Anemia. SUBJECTIVE: The patient presented today after received intravenous iron. His hemoglobin has improved in the last 10-12 weeks from 8.1 g/dL to 12.3 on 01/27/2019. However, the patient today reported that he has been more short of breath, more fatigued with exercise intolerance. He would feel short of breath and started gasping for air after few steps. His saturation today at the clinic was 86%. I advised the patient to proceed to the Emergency Room. We called the ER physician and give them a summary and update. REVIEW OF SYSTEMS: All systems were reviewed, it was negative. The patient denies any hemoptysis, leg pain or chest pain. MEDICATIONS: List has been reviewed. PHYSICAL EXAMINATION: VITAL SIGNS: Today, blood pressure is 134/82, pulse is 56, respirations 24, temperature is 97.0, saturations 86% on room air. GENERAL: The patient was sitting in chair. He looked tired and having tachypnea. LUNGS: Decreased breathing sounds bilaterally; however, there were no crackles or wheezing. HEART: Regular rate and rhythm. S1, S2 within normal limits. EXTREMITIES: +1 edema of lower extremities. LABORATORY DATA: On 01/27/2019, hemoglobin is 12.3, platelets 324, creatinine is 1.1. Ferritin 357, saturation 33%, TIBC 227. ASSESSMENT AND PLAN: An 83-year-old male who is being evaluated because of iron-deficiency anemia. The source of his bleeding could be related to his hematuria after TURBT for bladder tumor. The patient's hemoglobin has been improving by 30% in the last 8 weeks; however, today, he has been having symptoms of shortness of breath and mild hypoxia. I advised the patient to proceed to the Emergency Room. [place] [address] HEMATOLOGY ONCOLOGY NOTE Name: ERLINDA CRUZ Room: [facility]#: [id number] Admission: 02/04/19 Attend Phys: Issa Garcia MD Discharge: Date of : 37 Report #: [id number] We will obtain repeat iron studies with a CBC in 3 months to evaluate his levels. <ELECTRONICALLY SIGNED> By: Issa Garcia MD 02/07/19 1446 0956 1024Molenard Garcia MD /asad
== END ==
LOC: M.RTH 05:20
DX: D64.9 Anemia, unspecified (principal)

== ENCOUNTER → 2019-05-13 | Outpatient (CLI) | payer MEDICARE ==
[~2019-05-13] MED LIST changes: +LASIX 40 MG TAB40 MG PO
--- NOTE | 2019-05-19 17:51 | HEMONC ---
[address] [address] HEMATOLOGY ONCOLOGY NOTE Name: ERLINDA CRUZ Room: [facility]#: [id number] Admission: 05/13/19 Attend Phys: Issa Garcia MD Discharge: Date of : 37 Report #: [id number] THIS REPORT FOR: //name// CC: Issa Cartagena DO DATE OF SERVICE: 05/13/2019 FOLLOWUP CLINIC NOTE DIAGNOSIS: Iron deficiency anemia. SUBJECTIVE: The patient presented today as a 3 months followup, on last visit, he was hypoxic, was sent to the Emergency Room. I reviewed his hemoglobin, which has been holding stable since 12/2018, it has been ranging in the 12.6, improved from 8.1 with intravenous iron. His ferritin level continues to be within adequate range. The patient denies any shortness of breath. He is supposed to follow up with his Urology tomorrow to schedule cystoscopy. The patient reported no hematuria. REVIEW OF SYSTEMS: All systems are reviewed, it was negative except the above. PAST MEDICAL, SOCIAL, AND FAMILY HISTORY: Unchanged from last visit. PHYSICAL EXAMINATION: VITAL SIGNS: Today, blood pressure is 144/83, pulse 61, respirations 20, temperature is 96.4, saturations 91% on room air. GENERAL: The patient was sitting in chair, was not in acute distress. LUNGS: Clear to auscultations bilaterally. HEART: Regular rate and rhythm. S1, S2 within normal limits. ABDOMEN: Soft, nontender, nondistended, bowel sounds positive. MEDICATIONS: List has been reviewed. LABORATORY DATA: Labs on ____, hemoglobin 12.3, MCV 91.2. Creatinine is 1.1. Iron 135, TIBC 273 within normal range. Iron saturation 49%, ferritin 213. ASSESSMENT AND PLAN: An 84-year-old male was evaluated because of iron deficiency anemia. The source most likely related to his hematuria. At this point, hemoglobin and iron studies are holding stable, recommend 3 months followup. The patient will have a followup with his urology on Sunday. <ELECTRONICALLY SIGNED> By: Issa Garcia MD 05/19/19 1751 1046 [id number] Garcia MD /nt
== END ==
LOC: M.RTH 09:22
DX: D50.9 Iron deficiency anemia, unspecified (principal)

== ENCOUNTER 2019-07-28 15:04 | Inpatient (IN) | payer MEDICARE ==
[~2019-07-28] VITALS: Ht 172.7 cm; Wt 94.1 kg
[2019-07-28 15:13] VITALS: BP 120/71
[2019-07-28] MEDS ORDERED: NITROSTAT0.4 M1 SUBLING (15:23)
[2019-07-28 15:56] LABS: ABSOLUTE EOSINOPHILS 0.4 thou/uL (0.0-0.7); ABSOLUTE LYMPHOCYTES 1.9 thou/uL (0.8-5.3); ABSOLUTE MONOCYTES 0.7 thou/uL (0.0-1.2); ABSOLUTE NEUTROPHILS 6.8 thou/uL (1.6-8.1); BASOPHILS 0.5 %; EOSINOPHILS 4.2 %; HEMATOCRIT 36.3 % (42.0-52.0); HEMOGLOBIN 12.7 gm/dL (14.0-18.0); LYMPHOCYTES 19.5 %; MCH 31.7 pg (26.0-34.0); MCHC 35.1 g/dL (28.0-37.0); MCV 90.5 fL (80.0-100.0); MONOCYTES 7.1 %; MPV 7.6 fl. (7.2-11.1); NUCLEATED RBCS 0 /100WBC; PLATELET COUNT* 345 thou/uL (150-400); POLYS 68.7 %; RBC 4.01 mil/uL (4.50-6.00); RDW-CV 12.5 % (10.5-14.5); WBC 9.8 thou/uL (4.0-11.0)
[2019-07-28 16:10] LABS: CREATININE 1.1 mg/dL (0.6-1.3); POTASSIUM 4.4 mmol/L (3.5-5.1)
[2019-07-28 16:13] LABS: APTT 30.8 Seconds (25.0-31.3); PROTIME 10.5 Seconds (9.20-11.50)
[2019-07-28 16:19] LABS: INFLUENZA A ANTIGEN Negative (Negative); INFLUENZA B ANTIGEN Negative (Negative)
[2019-07-28 16:21] LABS: ALBUMIN 3.2 g/dL (3.4-5.0); TOTAL BILIRUBIN 0.3 mg/dL (<0.1-1.0)
[2019-07-28 18:06] LABS: URINE BILIRUBIN NEGATIVE (Negative); URINE BLOOD NEGATIVE (Negative); URINE COLOR YELLOW; URINE GLUCOSE-RANDOM NEGATIVE (Negative); URINE KETONES NEGATIVE (Negative); URINE PROTEIN NEGATIVE (Negative); URINE SPECIFIC GRAVITY 1.015 (1.005-1.030); URINE UROBILINOGEN 0.2 E.U./dl (0.2-1.0)
[2019-07-28 18:07] LABS: URINE CLARITY HAZY; URINE LEUKOCYTES-REFLEX 2+ (Negative); URINE NITRITE-REFLEX POSITIVE (Negative)
[2019-07-28 18:17] LABS: BACTERIA-REFLEX >30 Many /HPF (None Seen); CASTS None Seen /LPF (None Seen); CRYSTALS None Seen /LPF (None Seen); SQUAMOUS 0-3 Few /LPF (0-3); URINE RBC None Seen /HPF (0-2); URINE WBC-REFLEX >25 Many /HPF (0-5)
[2019-07-28 19:40] VITALS: BP 120/57
[2019-07-28 20:35] VITALS: BP 131/60
[2019-07-28] MEDS ORDERED: ASA81BEC PO (22:00)
[2019-07-28] MEDS ORDERED: KLOR-CON 10 ER10 MEQ PO (22:00)
[2019-07-28] MEDS ORDERED: VITAMIN B-125000 MCG PO (22:01)
[2019-07-29] VITALS (7 sets, daily range): BP systolic 108–164; BP diastolic 52–72
[2019-07-29 05:15] LABS: HEMATOCRIT 32.4 % (42.0-52.0); HEMOGLOBIN 11.6 gm/dL (14.0-18.0); MCH 32.3 pg (26.0-34.0); MCHC 35.7 g/dL (28.0-37.0); MCV 90.6 fL (80.0-100.0); MPV 7.7 fl. (7.2-11.1); RBC 3.58 mil/uL (4.50-6.00); RDW-CV 12.8 % (10.5-14.5); WBC 6.6 thou/uL (4.0-11.0)
[2019-07-29 05:40] LABS: ALBUMIN 2.7 g/dL (3.4-5.0); CALCIUM 9.2 mg/dL (8.5-10.1); MAGNESIUM 1.6 mg/dL (1.8-2.4); TOTAL BILIRUBIN 0.2 mg/dL (<0.1-1.0); TOTAL PROTEIN 5.8 g/dL (6.4-8.2)
--- NOTE | 2019-07-29 10:05 | EKG ---
[place] [address] ELECTROCARDIOGRAM REPORT Name: ERLINDA CRUZ Room: [address] IN [facility].#: [id number] Admission: 07/28/19 Attend Phys: Martha Turner, Discharge: Date of : 39 Date of Service: 07/28/19 1551 Report #: [id number] THIS REPORT FOR: //name// [facility] ED Test Date: 2019-07-28 Test Time: 15:51:18 Pat Name: ERLINDA CRUZ Department: Room: [facility] Gender: M Boarder Machine: CCD : 1935 Requested By: Taylor Pagan Order Number: [id number] MD: Ramon Green Measurements Intervals [place] Rate: 72 P: 36 [place]: 226 QRS: 58 QRSD: 146 T: 6 QT: 423 QTc: 463 Interpretive Statements Sinus rhythm Prolonged [place] interval Right bundle branch block Abnormal inferior Q waves Compared to ECG 02/04/2019 09:38:04 First degree AV block now present Inferior Q waves now present Q waves now present Electronically Signed On 07-29-2019 10:04:21 CDT by Ramon Green [email or web address] <ELECTRONICALLY SIGNED> By: Ramon Green MD, FACC 07/29/19 1004 1551 1551 Ramon Green MD, FACC /EPI
[2019-07-30] VITALS: BP 123/64
[2019-07-30 04:27] VITALS: BP 129/57
[2019-07-30 05:26] LABS: HEMATOCRIT 32.8 % (42.0-52.0); HEMOGLOBIN 11.4 gm/dL (14.0-18.0); MCH 31.5 pg (26.0-34.0); MCHC 34.8 g/dL (28.0-37.0); MCV 90.4 fL (80.0-100.0); MPV 7.5 fl. (7.2-11.1); RBC 3.63 mil/uL (4.50-6.00); RDW-CV 12.8 % (10.5-14.5); WBC 6.2 thou/uL (4.0-11.0)
[2019-07-30 05:59] LABS: CALCIUM 9.3 mg/dL (8.5-10.1); MAGNESIUM 1.6 mg/dL (1.8-2.4); POTASSIUM 3.9 mmol/L (3.5-5.1); TOTAL BILIRUBIN 0.2 mg/dL (<0.1-1.0); TOTAL PROTEIN 5.9 g/dL (6.4-8.2)
[2019-07-30 06:38] LABS: ALBUMIN 2.7 g/dL (3.4-5.0)
[2019-07-30 12:00] VITALS: BP 126/64
[2019-07-30 14:18] VITALS: BP 126/64
== END 2019-07-30 14:50 | disposition home or self-care (01) | DRG 193 ==
LOC: M.ERS 15:04 → M.TBA-ER 17:18 → M.ORTHSURG 17:18
PROVIDERS: Nurse Practitioner Family; ADMIT Internal Medicine
DX: J12.89 Other viral pneumonia (principal); J96.01 Acute respiratory failure with hypoxia; E61.1 Iron deficiency; E53.8 Deficiency of other specified B group vitamins; D64.9 Anemia, unspecified; I25.10 Atherosclerotic heart disease of native coronary artery without angina pectoris; E78.5 Hyperlipidemia, unspecified; G25.81 Restless legs syndrome; I10 Essential (primary) hypertension; E78.00 Pure hypercholesterolemia, unspecified; Z20.828 Contact with and (suspected) exposure to other viral communicable diseases; Z95.1 Presence of aortocoronary bypass graft; Z85.46 Personal history of malignant neoplasm of prostate; I25.2 Old myocardial infarction; Z95.5 Presence of coronary angioplasty implant and graft; Z90.49 Acquired absence of other specified parts of digestive tract; Z85.51 Personal history of malignant neoplasm of bladder; Z79.899 Other long term (current) drug therapy; Z79.82 Long term (current) use of aspirin; Z88.8 Allergy status to other drugs, medicaments and biological substances; Z87.891 Personal history of nicotine dependence

== ENCOUNTER 2019-08-21 16:05 | Inpatient (IN) | payer MEDICARE ==
[~2019-08-21] VITALS: Ht 172.7 cm; Wt 88.3 kg
[~2019-08-21 16:05] MED LIST changes: +ASA81BEC PO; +KLOR-CON 10 ER10 MEQ PO; +NITROSTAT0.4 M1 SUBLING; +VITAMIN B-125000 MCG PO
[2019-08-21 16:08] VITALS: BP 125/63
[2019-08-21 16:37] LABS: ABSOLUTE EOSINOPHILS 0.3 thou/uL (0.0-0.7); ABSOLUTE LYMPHOCYTES 1.6 thou/uL (0.8-5.3); ABSOLUTE NEUTROPHILS 7.7 thou/uL (1.6-8.1); BASOPHILS 0.3 %; EOSINOPHILS 2.6 %; HEMATOCRIT 37.4 % (42.0-52.0); HEMOGLOBIN 12.7 gm/dL (14.0-18.0); LYMPHOCYTES 15.4 %; MCH 30.8 pg (26.0-34.0); MCHC 33.9 g/dL (28.0-37.0); MCV 90.9 fL (80.0-100.0); MONOCYTES 9.1 %; MPV 7.8 fl. (7.2-11.1); NUCLEATED RBCS 0 /100WBC; PLATELET COUNT* 299 thou/uL (150-400); POLYS 72.6 %; RBC 4.11 mil/uL (4.50-6.00); WBC 10.6 thou/uL (4.0-11.0)
[2019-08-21 16:45] LABS: APTT 30.7 Seconds (25.0-31.3); CREATININE 1.3 mg/dL (0.6-1.3); POTASSIUM 3.8 mmol/L (3.5-5.1); PROTIME 10.5 Seconds (9.20-11.50)
[2019-08-21 16:53] LABS: ALBUMIN 3.3 g/dL (3.4-5.0); MAGNESIUM 1.6 mg/dL (1.8-2.4); TOTAL BILIRUBIN 0.3 mg/dL (<0.1-1.0); TOTAL PROTEIN 7.2 g/dL (6.4-8.2)
[2019-08-21 16:54] LABS: INFLUENZA A ANTIGEN Negative (Negative); INFLUENZA B ANTIGEN Negative (Negative)
[2019-08-21 19:00] VITALS: BP 129/62
[2019-08-21 21:10] VITALS: BP 123/71
[2019-08-22] VITALS (7 sets, daily range): BP systolic 106–120; BP diastolic 53–74
[2019-08-22 05:11] LABS: HEMATOCRIT 36.7 % (42.0-52.0); HEMOGLOBIN 12.8 gm/dL (14.0-18.0); MCH 31.2 pg (26.0-34.0); MCHC 34.9 g/dL (28.0-37.0); MCV 89.4 fL (80.0-100.0); MPV 7.6 fl. (7.2-11.1); RBC 4.1 mil/uL (4.50-6.00); WBC 5.8 thou/uL (4.0-11.0)
[2019-08-22 05:42] LABS: ALBUMIN 3.4 g/dL (3.4-5.0); CALCIUM 9.2 mg/dL (8.5-10.1); CREATININE 1.5 mg/dL (0.6-1.3); MAGNESIUM 1.7 mg/dL (1.8-2.4); POTASSIUM 4.1 mmol/L (3.5-5.1); TOTAL BILIRUBIN 0.5 mg/dL (<0.1-1.0); TOTAL PROTEIN 6.9 g/dL (6.4-8.2)
--- NOTE | 2019-08-22 10:50 | EKG ---
[place] [address] ELECTROCARDIOGRAM REPORT Name: NANCYERLINDA EUCEDA Room: [place] [address] ADM IN [facility].#: [id number] Admission: 08/21/19 Attend Phys: Ally davis Sa Discharge: Date of : 39 Date of Service: 08/21/19 1610 Report #: [id number] THIS REPORT FOR: //name// [facility] ED Test Date: 2019-08-21 Test Time: 16:10:43 Pat Name: ERLINDA CRUZ Department: Room: [facility] Gender: M Genetic Supervisor: DOUG : 1935 Requested By: Taylor Pagan Order Number: [id number] MD: Bubba Crowley Measurements Intervals [place] Rate: 94 P: 43 [place]: 199 QRS: 65 QRSD: 151 T: 8 QT: 389 QTc: 487 Interpretive Statements Sinus rhythm Right bundle branch block Abnormal inferior Q waves Compared to ECG 07/28/2019 15:51:18 First degree AV block no longer present Electronically Signed On 08-22-2019 10:49:04 CDT by Bubba Crowley [email or web address] <ELECTRONICALLY SIGNED> By: Bubba Crowley MD, [facility] 08/22/19 1049 1610 1610 Bubba Crowley MD, [facility] /EPI
[2019-08-23 02:07] LABS: GLYCOHEMOGLOBIN (HGB A1C) 6.5 % (4.8-5.6)
[2019-08-23 04:24] VITALS: BP 123/50
[2019-08-23 05:10] LABS: HEMATOCRIT 33.6 % (42.0-52.0); HEMOGLOBIN 11.6 gm/dL (14.0-18.0); MCH 31.1 pg (26.0-34.0); MCHC 34.6 g/dL (28.0-37.0); MCV 89.8 fL (80.0-100.0); MPV 7.9 fl. (7.2-11.1); RBC 3.74 mil/uL (4.50-6.00); RDW-CV 12.7 % (10.5-14.5); WBC 10.4 thou/uL (4.0-11.0)
[2019-08-23 05:45] LABS: ALBUMIN 2.8 g/dL (3.4-5.0); CALCIUM 8.9 mg/dL (8.5-10.1); CREATININE 1.4 mg/dL (0.6-1.3); MAGNESIUM 1.7 mg/dL (1.8-2.4); PHOSPHORUS* 3.5 mg/dL (2.5-4.9); POTASSIUM 3.7 mmol/L (3.5-5.1)
[2019-08-23 08:00] VITALS: BP 126/48
[2019-08-23] MEDS ORDERED: LEVAQUIN 750 M750 MG PO (12:47)
[2019-08-23 13:16] VITALS: BP 126/48
[2019-08-23 14:18] VITALS: BP 126/48
== END 2019-08-23 14:47 | disposition home or self-care (01) | DRG 871 ==
LOC: M.ERS 16:05 → M.2W 17:18 → M.TBA-ER 17:18 → M.2W 18:51
PROVIDERS: Family Medicine; Nurse Practitioner Family; ADMIT Family Medicine
DX: A41.9 Sepsis, unspecified organism (principal); J15.6 Pneumonia due to other Gram-negative bacteria; I50.33 Acute on chronic diastolic (congestive) heart failure; J96.21 Acute and chronic respiratory failure with hypoxia; J44.0 Chronic obstructive pulmonary disease with (acute) lower respiratory infection; E44.0 Moderate protein-calorie malnutrition; N17.9 Acute kidney failure, unspecified; E78.5 Hyperlipidemia, unspecified; I11.0 Hypertensive heart disease with heart failure; Y95 Nosocomial condition; E83.42 Hypomagnesemia; I25.10 Atherosclerotic heart disease of native coronary artery without angina pectoris; Z20.828 Contact with and (suspected) exposure to other viral communicable diseases; R65.20 Severe sepsis without septic shock; E78.00 Pure hypercholesterolemia, unspecified; Z95.5 Presence of coronary angioplasty implant and graft; Z90.49 Acquired absence of other specified parts of digestive tract; Z85.46 Personal history of malignant neoplasm of prostate; Z85.51 Personal history of malignant neoplasm of bladder; Z79.899 Other long term (current) drug therapy; Z79.82 Long term (current) use of aspirin; Z79.84 Long term (current) use of oral hypoglycemic drugs; Z87.891 Personal history of nicotine dependence; Z68.29 Body mass index [BMI] 29.0-29.9, adult; Z95.1 Presence of aortocoronary bypass graft; D50.9 Iron deficiency anemia, unspecified

== ENCOUNTER 2020-08-16 17:40 | Inpatient (IN) | payer MEDICARE ==
[~2020-08-16] VITALS: Ht 172.7 cm; Wt 76.8 kg
[~2020-08-16 17:40] MED LIST changes: +LEVAQUIN 750 M750 MG PO
[2020-08-16 17:47] VITALS: BP 153/82
[2020-08-16 18:09] LABS: URINE BILIRUBIN NEGATIVE (Negative); URINE BLOOD TRACE (Negative); URINE CLARITY CLEAR; URINE COLOR YELLOW; URINE GLUCOSE-RANDOM NEGATIVE (Negative); URINE KETONES NEGATIVE (Negative); URINE LEUKOCYTES-REFLEX 2+ (Negative); URINE NITRITE-REFLEX NEGATIVE (Negative); URINE PROTEIN NEGATIVE (Negative); URINE SPECIFIC GRAVITY 1.015 (1.005-1.030); URINE UROBILINOGEN 0.2 E.U./dl (0.2-1.0)
[2020-08-16 18:19] LABS: BACTERIA-REFLEX 1-9 Few /HPF (None Seen); HYALINE CASTS 0-3 Few /LPF (None Seen); SQUAMOUS NONE SEEN /LPF (0-3); URINE WBC-REFLEX 6-15 Few /HPF (0-5)
[2020-08-16 18:20] LABS: CALCIUM OXALATE 0-3 Few /LPF (None Seen); MUCUS None Seen strn/LPF (None Seen); URINE RBC 0-2 Rare /HPF (0-2)
[2020-08-16 19:33] LABS: ABSOLUTE EOSINOPHILS 0.1 thou/uL (0.0-0.7); ABSOLUTE LYMPHOCYTES 2.3 thou/uL (0.8-5.3); ABSOLUTE MONOCYTES 0.5 thou/uL (0.0-1.2); ABSOLUTE NEUTROPHILS 8.2 thou/uL (1.6-8.1); BASOPHILS 0.3 %; EOSINOPHILS 0.6 %; HEMATOCRIT 33.7 % (42.0-52.0); HEMOGLOBIN 10.9 gm/dL (14.0-18.0); LYMPHOCYTES 20.6 %; MCHC 32.3 g/dL (28.0-37.0); MCV 89.7 fL (80.0-100.0); MONOCYTES 4.7 %; MPV 7.7 fl. (7.2-11.1); NUCLEATED RBCS 0 /100WBC; PLATELET COUNT* 314 thou/uL (150-400); POLYS 73.8 %; RBC 3.76 mil/uL (4.50-6.00); RDW-CV 14.1 % (10.5-14.5); WBC 11.1 thou/uL (4.0-11.0)
[2020-08-16 19:41] LABS: CALCIUM 10.2 mg/dL (8.5-10.1); CREATININE 1.9 mg/dL (0.6-1.3); POTASSIUM 3.2 mmol/L (3.5-5.1)
[2020-08-16 19:45] LABS: ALBUMIN 3.5 g/dL (3.4-5.0); APTT 28.8 Seconds (25.0-31.3); PROTIME 10.9 Seconds (9.20-11.50); TOTAL BILIRUBIN 0.3 mg/dL (<0.1-1.0); TOTAL PROTEIN 7.3 g/dL (6.4-8.2)
[2020-08-16 22:56] VITALS: BP 165/84
[2020-08-16 23:10] VITALS: BP 152/72
[2020-08-17] VITALS (18 sets, daily range): BP systolic 67–144; BP diastolic 31–104
[2020-08-17 00:34] LABS: HEMATOCRIT 30.5 % (42.0-52.0); HEMOGLOBIN 10.1 gm/dL (14.0-18.0); MCH 29.8 pg (26.0-34.0); MCHC 33.3 g/dL (28.0-37.0); MCV 89.6 fL (80.0-100.0); MPV 7.6 fl. (7.2-11.1); RBC 3.4 mil/uL (4.50-6.00); RDW-CV 14.3 % (10.5-14.5); WBC 10.5 thou/uL (4.0-11.0)
[2020-08-17 01:00] LABS: CALCIUM 9.3 mg/dL (8.5-10.1); CREATININE 1.6 mg/dL (0.6-1.3); MAGNESIUM 1.5 mg/dL (1.8-2.4); POTASSIUM 3.5 mmol/L (3.5-5.1)
--- NOTE | 2020-08-17 04:28 | NUR ---
RECEIVED PT WITH RN FROM ED PER CART AT APPROX 2310. PT IS AWAKE AND ORIENTED X4. PT IS TRACING SR/ST WITH BBB ON THE RETINAL ANGIOGRAPHER. ADMISSION ASSESSMENT DONE AND CHARTED. PT IS ADVISED TO HAVE NOTHING BY MOUTH. PT C/O ABDOMINAL PAIN VERY SLIGHTLY RELIEVED BY MORPHINE, DR RAY INFORMED AND DILAUDID IV PRN GIVEN ORDERED. PT VERBALIZED PARTIAL RELIEF. PT IS CLOSELY MONITORED. FALL PRECAUTIONS IN PLACE. CALL LIGHT WITHIN REACH.
--- NOTE | 2020-08-17 14:16 | EKG ---
[place] [address] ELECTROCARDIOGRAM REPORT Name: ERLINDA CRUZ Room: [address] ADM IN [facility].#: [id number] Admission: 08/16/20 Attend Phys: Martha Turner, Discharge: Date of : 39 Date of Service: 08/16/20 1829 Report #: [id number] THIS REPORT FOR: //name// [facility] ED Test Date: 2020-08-16 Test Time: 18:29:17 Pat Name: ERLINDA CRUZ Department: Room: [facility] Gender: M Clinical Operations Manager: : 1935 Requested By: Yosef Grande Order Number: [id number] MD: Tien Michel Measurements Intervals [place] Rate: 79 P: 43 [place]: 209 QRS: 66 QRSD: 151 T: 22 QT: 447 QTc: 513 Interpretive Statements Sinus rhythm Right bundle branch block Compared to ECG 08/21/2019 16:10:43 Inferior Q waves no longer present Q waves no longer present Electronically Signed On 08-17-2020 14:16:12 CDT by Tien Michel [email or web address] <ELECTRONICALLY SIGNED> By: Tien Michel MD, FAC 08/17/20 1416 1829 1829 Tien Michel MD, [facility] /EPI
--- NOTE | 2020-08-17 16:00 | NUR ---
Pt is A&O. Resides at home with . Independent. Pt has a walker at home for mobility. Wears home o2 at night. No hx of HH or SNF. Anticipate dc in a few days, no needs anticipated.
--- NOTE | 2020-08-17 20:02 | NUR ---
ASSUMED PT CARE AT 0730. PT IS ALERT AND APPEARS TO BE RESTING. ASSESSMENT COMPLETED AND SHORTLY PT MORE AWAKE AND IN PAIN, ST ON THE MONITOR. PT IS NPO AND AWAITING ABDOMINAL SERIES, PT BECAME MORE ALERT AND COMPLAINED OF SEVERE PAIN AT 8. PRN PAIN MED GIVEN WITH VERY LITTLE RELIEF, PHYSICIAN PRESENT AND ORDERS GIVEN TO ADMINISTER AN ADDITIONAL 1MG OF HYDROMORPHONE. PT TAKEN DOWN FOR PROCEDURE AND RESTING OFF AND ON AND APPEARED TO HAVE RELIEF. APPROX 1800 PT MOANING IN PAIN, STATED HE JUST STARTED TO WAKE AND APPEARED TO BE IN SEVERE PAIN AGAIN. PRN PAIN MED GIVEN ORDERED. SHORTLY THEREAFTER PT'S HEART RATE INCREASED, BP DECREASED AND PT MORE DIFFICULT TO AROUSE. RAPID CALLED, PHYSICIAN NOTIFIED AND NEW ORDERS WERE OBTAINED. PT NOW MORE ALERT. VS IMPROVED.
[2020-08-17 22:39] LABS: MCH 29.3 pg (26.0-34.0); MCHC 31.8 g/dL (28.0-37.0); MCV 92.3 fL (80.0-100.0); MPV 8.3 fl. (7.2-11.1); RBC 4.12 mil/uL (4.50-6.00); WBC 13.5 thou/uL (4.0-11.0)
[2020-08-17 22:47] LABS: HEMOGLOBIN 12.1 gm/dL (14.0-18.0)
[2020-08-17 22:50] LABS: BE -13.3 mmol/L (-2 to +3); PO2 65.1 mmHg (75.0-100.0); pH 7.332 (7.340-7.450)
[2020-08-17 22:56] LABS: CALCIUM 10.4 mg/dL (8.5-10.1)
[2020-08-17 22:57] LABS: PCO2 19.9 mmHg (35.0-45.0)
[2020-08-17 23:00] LABS: TOTAL BILIRUBIN 0.4 mg/dL (<0.1-1.0); TOTAL PROTEIN 7.1 g/dL (6.4-8.2)
--- NOTE | 2020-08-17 23:00 | NUR ---
ASSUMED PT CARE AT APPROX 191. RAPID RESPONSE IN PROGRESS. PT IS VERY LETHARGIC, MOANS TO STERNAL STIMULATION. NARCAN GIVEN AT APPROX 191. PT STARTED WAKING UP AND IS ABLE TO ANSWER QUESTIONS. BP SOFT CHARTED- NS IS INFUSING WIDE OPEN. spO2 IS 88-89% ON ROOM AIR, O2 SUPPORT PRVIDED AT 5L/NC TO KEEP spO2 >92%. NG TUBE PLACED ORDERED TO RIGHT NARE, CONNECTED TO LOW INTERMITTENT SUCTION, PT TOLERATED NG INSERTION WELL-1900ml OF COFFEE GROUND BROWN OUTPUT OBTAINED FROM NG TUBE. BP's IMPROVED SOME AT APPROX 1999 BUT HAVE BEEN LOW SINCE THEN, AND PT HAS BEEN LETHARGIC. SAUTE CHEF INFORMED. 2ND NARCAN GIVEN AT APPROX 2219, PT IS MORE AWAKE AFTER. BP REMAINED LOW. DR HURTADO OF SURGERY INFORMED. PT IS TRANSFERED TO ICU AT APPROX 2300. UPDATED OF TRANSFER.
[2020-08-17 23:01] LABS: CREATININE 2.8 mg/dL (0.6-1.3)
--- NOTE | 2020-08-17 23:57 | NUR ---
PT TRANSFERED TO ICU AT [address] GANDHI PAGED REGARDING HYPOTENSION. ARRIVE IN UNIT, DR GANDHI EXPLAINED PT'S CONDITION AND NEED FOR CENTRAL LINE PLACEMENT. CONSENT SIGNED.
[2020-08-18] VITALS (53 sets, daily range): BP systolic 63–129; BP diastolic 38–65
--- NOTE | 2020-08-18 00:24 | NUR ---
CHEST AND ABDOMINAL XRAYS OBTAINED. DR DELONG IN UNIT AT THIS TIME SPEAKING TO PT AND REGARDING TREATMENT.
--- NOTE | 2020-08-18 00:29 | NUR ---
RECIEVED CONSULT FOR CARDILOGY. PROBALE POSTERIOR INFARCT PER DR DELONG. DR ABEBE BARILLAS.
--- NOTE | 2020-08-18 00:34 | NUR ---
PREPARING FOR INTUBATION PER DR DELONG.
--- NOTE | 2020-08-18 00:47 | NUR ---
DR DELONG SPOKE TO REGARDING INTUBATION AND TAKING PT TO SURGURY. DR LOMAS PAGED AGAIN PER DR DELONG
--- NOTE | 2020-08-18 01:08 | NUR ---
CENTRAL LINE INSERTION IN PROGRESS
--- NOTE | 2020-08-18 02:11 | NUR ---
PT EN ROUTE TO OR AT THIS TIME WITH OR STAFF.
--- NOTE | 2020-08-18 05:16 | NUR ---
PT RETURNED FROM OR AT THIS TIME. PT INTUBATED IN OR PREOP.
[2020-08-18 05:50] LABS: HEMATOCRIT 29.5 % (42.0-52.0); MCH 29.1 pg (26.0-34.0); MCHC 31.2 g/dL (28.0-37.0); MCV 93.3 fL (80.0-100.0); MPV 8.3 fl. (7.2-11.1); NUCLEATED RBCS 0 /100WBC; PLATELET COUNT* 310 thou/uL (150-400); RBC 3.16 mil/uL (4.50-6.00); RDW-CV 15.2 % (10.5-14.5)
[2020-08-18 05:52] LABS: HEMOGLOBIN 9.2 gm/dL (14.0-18.0)
[2020-08-18 05:59] LABS: CALCIUM 8.6 mg/dL (8.5-10.1); CREATININE 2.7 mg/dL (0.6-1.3); POTASSIUM 4.6 mmol/L (3.5-5.1)
[2020-08-18 06:00] LABS: ALBUMIN 2.6 g/dL (3.4-5.0); PHOSPHORUS* 6.3 mg/dL (2.5-4.9); TOTAL BILIRUBIN 0.3 mg/dL (<0.1-1.0); TOTAL PROTEIN 5.3 g/dL (6.4-8.2)
[2020-08-18 06:16] LABS: ABSOLUTE EOSINOPHILS 0.1 thou/uL (0.0-0.7); ABSOLUTE LYMPHOCYTES 2.3 thou/uL (0.8-5.3); ABSOLUTE MONOCYTES 1.1 thou/uL (0.0-1.2); ABSOLUTE NEUTROPHILS 7.5 thou/uL (1.6-8.1); PLATELET ESTIMATE ADEQUATE
[2020-08-18 06:17] LABS: ANISOCYTOSIS 1+; OVALOCYTES 1+; POIKILOCYTOSIS 1+
[2020-08-18 06:38] LABS: BE -19.2 mmol/L (-2 to +3); PCO2 45.2 mmHg (35.0-45.0)
[2020-08-18 06:41] LABS: PO2 147.9 mmHg (75.0-100.0); pH 7.006 (7.340-7.450)
[2020-08-18 09:58] LABS: ABSOLUTE LYMPHOCYTES 1.2 thou/uL (0.8-5.3); ABSOLUTE MONOCYTES 0.7 thou/uL (0.0-1.2); ABSOLUTE NEUTROPHILS 5.4 thou/uL (1.6-8.1); BASOPHILS 0.2 %; EOSINOPHILS 0.1 %; HEMATOCRIT 27.2 % (42.0-52.0); HEMOGLOBIN 8.9 gm/dL (14.0-18.0); LYMPHOCYTES 15.8 %; MCH 29.5 pg (26.0-34.0); MCHC 32.7 g/dL (28.0-37.0); MONOCYTES 10.1 %; MPV 7.8 fl. (7.2-11.1); NUCLEATED RBCS 0 /100WBC; PLATELET COUNT* 258 thou/uL (150-400); POLYS 73.8 %; RBC 3.02 mil/uL (4.50-6.00); RDW-CV 14.7 % (10.5-14.5); WBC 7.4 thou/uL (4.0-11.0)
[2020-08-18 10:07] LABS: CALCIUM 8.8 mg/dL (8.5-10.1); CREATININE 2.7 mg/dL (0.6-1.3); POTASSIUM 4.3 mmol/L (3.5-5.1)
[2020-08-18 10:36] LABS: APTT 35.4 Seconds (25.0-31.3); INR 1.2; PROTIME 12.4 Seconds (9.20-11.50)
[2020-08-18 11:52] LABS: BE -5.3 mmol/L (-2 to +3); PCO2 34.5 mmHg (35.0-45.0); PO2 121.2 mmHg (75.0-100.0); pH 7.368 (7.340-7.450)
[2020-08-18 12:17] LABS: ABSOLUTE LYMPHOCYTES 0.9 thou/uL (0.8-5.3); ABSOLUTE MONOCYTES 0.6 thou/uL (0.0-1.2); ABSOLUTE NEUTROPHILS 4.2 thou/uL (1.6-8.1); BASOPHILS 0.2 %; EOSINOPHILS 0.1 %; HEMATOCRIT 25.7 % (42.0-52.0); HEMOGLOBIN 8.5 gm/dL (14.0-18.0); MCH 29.6 pg (26.0-34.0); MCV 89.5 fL (80.0-100.0); MPV 8.3 fl. (7.2-11.1); NUCLEATED RBCS 0 /100WBC; PLATELET COUNT* 245 thou/uL (150-400); POLYS 73.7 %; RBC 2.87 mil/uL (4.50-6.00); RDW-CV 14.4 % (10.5-14.5); WBC 5.7 thou/uL (4.0-11.0)
[2020-08-18 12:34] LABS: ALBUMIN 2.1 g/dL (3.4-5.0); CREATININE 2.7 mg/dL (0.6-1.3); POTASSIUM 3.9 mmol/L (3.5-5.1); TOTAL BILIRUBIN 0.3 mg/dL (<0.1-1.0); TOTAL PROTEIN 4.6 g/dL (6.4-8.2)
--- NOTE | 2020-08-18 15:17 | NUR ---
Case and plan of care reviewed with MD -tachy HR, hypotension, On Vent-nonresponsive, on x2 vasopressors -no longer responding to fluid admin and not making urine. Case management Will continue to follow for discharge planning needs
--- NOTE | 2020-08-18 19:11 | NUR ---
PATIENT DOING MUCH BETTER THIS EVENING. PATIENT IS ABLE TO FOLLOW COMMANDS. HR HAS BEEN DECREASING THE DAY HAS WENT. LEVO TITRATED DOWN CHARTED. VASO STILL MAXED. AND SON AT BEDSIDE AND HAS BEEN MOST POF THE DAY. PATIENT ONLY TURNED SLIGHTLY DUE TO BEING UNSTABLE. PLEASE SEE CHART FOR ASSESSMENT.
[2020-08-18 20:12] LABS: pH 7.415 (7.340-7.450)
[2020-08-19] VITALS (49 sets, daily range): BP systolic 70–161; BP diastolic 32–56
[2020-08-19 06:31] LABS: INR 1.5; PROTIME 15.5 Seconds (9.20-11.50)
[2020-08-19 06:37] LABS: ABSOLUTE LYMPHOCYTES 0.7 thou/uL (0.8-5.3); ABSOLUTE MONOCYTES 0.5 thou/uL (0.0-1.2); ABSOLUTE NEUTROPHILS 5.7 thou/uL (1.6-8.1); BASOPHILS 0.5 %; EOSINOPHILS 0.5 %; LYMPHOCYTES 10.5 %; MCH 29.3 pg (26.0-34.0); MCHC 32.7 g/dL (28.0-37.0); MCV 89.4 fL (80.0-100.0); MONOCYTES 7.8 %; MPV 8.1 fl. (7.2-11.1); NUCLEATED RBCS 0 /100WBC; PLATELET COUNT* 179 thou/uL (150-400); POLYS 80.7 %; RBC 2.18 mil/uL (4.50-6.00); RDW-CV 14.7 % (10.5-14.5)
[2020-08-19 06:37] LABS: ALBUMIN 2.9 g/dL (3.4-5.0); CALCIUM 8.1 mg/dL (8.5-10.1); CREATININE 3.2 mg/dL (0.6-1.3); MAGNESIUM 1.8 mg/dL (1.8-2.4); PHOSPHORUS* 3.6 mg/dL (2.5-4.9); POTASSIUM 3.8 mmol/L (3.5-5.1); TOTAL BILIRUBIN 0.5 mg/dL (<0.1-1.0); TOTAL PROTEIN 5.2 g/dL (6.4-8.2)
[2020-08-19 06:38] LABS: APTT 41.5 Seconds (25.0-31.3)
[2020-08-19 06:43] LABS: HEMATOCRIT 19.5 % (42.0-52.0); HEMOGLOBIN 6.4 gm/dL (14.0-18.0)
[2020-08-19 06:48] LABS: ALBUMIN 2.9 g/dL (3.4-5.0); CALCIUM 8.2 mg/dL (8.5-10.1); CREATININE 3.3 mg/dL (0.6-1.3); PHOSPHORUS* 3.8 mg/dL (2.5-4.9); POTASSIUM 3.9 mmol/L (3.5-5.1)
[2020-08-19 08:40] LABS: PCO2 45.1 mmHg (35.0-45.0)
[2020-08-19 08:42] LABS: PO2 124.6 mmHg (75.0-100.0)
--- NOTE | 2020-08-19 12:05 | EKG ---
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 Automatic: Jv Luz : 1935 Requested By: Juan Peters Order Number: [id number] Roseanne MD: Ramon Green Measurements Intervals [place] Rate: 134 P: 196 RI: 99 QRS: 139 QRSD: 126 T: -17 QT: 378 QTc: 565 Interpretive Statements Sinus or ectopic atrial tachycardia Right bundle branch block Compared to ECG 08/16/2020 18:29:17 Heart rate has increased Electronically Signed On 08-19-2020 12:05:01 CDT by Ramon Green [email or web address] <ELECTRONICALLY SIGNED> By: Ramon Green MD, [facility] 08/19/20 1205 12 12 Ramon Green MD, [facility] /EPI
--- NOTE | 2020-08-19 12:07 | EKG ---
[place] [address] ELECTROCARDIOGRAM REPORT Name: NANCY,ERLINDA Chandler Room: [address] IN .R.#: [id number] Admission: 08/16/20 Attend Phys: Martha Turner, Discharge: Date of : 39 Date of Service: 08/18/20 0022 Report #: [id number] THIS REPORT FOR: //name// [facility] Test Date: 2020-08-18 Test Time: 00:22:34 Pat Name: ERLINDA CRUZ Department: Room: [address] Gender: M Handle Finisher: Jv Luz : 1935 Requested By: Martha Turner Order Number: [id number] Reading MD: Ramon Green Measurements Intervals [place] Rate: 127 P: NV: QRS: 74 QRSD: 123 T: 36 QT: 402 QTc: 585 Interpretive Statements Sinus tachycardia Right bundle branch block Borderline ST elevation, inferior leads Baseline wander in lead(s) V5 Compared to ECG 08/17/2020 22:13:2 ST (T wave) deviation now present Electronically Signed On 08-19-2020 12:07:10 CDT by Ramon Green [email or web address] <ELECTRONICALLY SIGNED> By: Ramon Green MD, [facility] 08/19/20 1207 Ramon Green MD, [facility] /EPI
--- NOTE | 2020-08-19 12:08 | EKG ---
[place] [address] ELECTROCARDIOGRAM REPORT Name: NANCY,ERLINDA Chandler Room: [address] IN .R.#: [id number] Admission: 08/16/20 Attend Phys: Martha Turner, Discharge: Date of : 39 Date of Service: 08/18/20 0636 Report #: [id number] THIS REPORT FOR: //name// [facility] Test Date: 2020-08-18 Test Time: 06:36:25 Pat Name: ERLINDA CRUZ Department: Room: [address] Gender: M Telecommunications Sales Representative: KORY : 1935 Requested By: Martha Turner Order Number: [id number] Reading MD: Ramon Green Measurements Intervals [place] Rate: 153 P: 0 ID: QRS: 81 QRSD: 114 T: 29 QT: 349 QTc: 557 Interpretive Statements Sinus or supraventricular tachycardia Incomplete right bundle branch block Compared to ECG 08/18/2020 00:22:34 Incomplete right bundle-branch block persists ST (T wave) deviation no longer present Electronically Signed On 08-19-2020 12:08:46 CDT by Ramon Green [email or web address] <ELECTRONICALLY SIGNED> By: Ramon Green MD, FAC 08/19/20 1208 0636 0636 Ramon Green MD, FAC /EPI
--- NOTE | 2020-08-19 12:20 | EKG ---
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 Making: MARIELY Adams : 1935 Requested By: Latonia Sutton Order Number: [id number] Roseanne MD: Ramon Green Measurements Intervals [place] Rate: 103 P: 14 [place]: 168 QRS: 69 QRSD: 146 T: -10 QT: 414 QTc: 542 Interpretive Statements Sinus tachycardia Right bundle branch block Inferior infarct, old Compared to ECG 08/18/2020 06:36:25 Right bundle-branch block persists Supraventricular tachycardia no longer present Myocardial infarct finding still present Electronically Signed On 08-19-2020 12:19:57 CDT by Ramon Green [email or web address] <ELECTRONICALLY SIGNED> By: Ramon Green MD, FAC 08/19/20 1219 1047 1047 Ramon Green MD, [facility] /EPI
--- NOTE | 2020-08-19 15:00 | 2DMMODE ---
[place] [address] 2 D/M-MODE ECHOCARDIOGRAM Name: NANCYERLINDA Chandler Room: [address] IN [place].#: [id number] Admission: 08/16/20 Attend Phys: Martha Turner, Discharge: Date of : 39 Date of Service: 08/19/20 1500 Report #: [id number] THIS REPORT FOR: cc: David Cartagena,David Lyons,Ramon Hernandez MD [facility] ~ APPROVED REPORT Study performed: 08/19/2020 10:11:47 EXAM: Comprehensive 2D, Doppler, and color-flow Echocardiogram Patient Location: In-Patient Room #: 004 Status: routine BSA: 1.86 HR: 103 bpm BP: 134/56 mmHg Rhythm: NSR Other Information Study Quality: Good Indications Abnormal ECG 2D Dimensions IVSd: 10.76 (7-11mm) LVOT Diam: 20.23 (18-24mm) LVDd: 40.54 mm PWd: 7.57 (7-11mm) Ascending Ao: 36.17 (22-36mm) LVDs: 32.74 (25-40mm) Aortic Root: 36.86 mm Volumes Left Atrial Volume (Systole) LA ESV Index: 20.60 mL/m2 Aortic Valve AoV Peak Sathish.: 1.39 m/s AO Peak Gr.: 7.77 mmHg LVOT Max P.69 mmHg AO Mean Gr.: 4.45 mmHg LVOT Mean P.09 mmHg LVOT Max V: 1.47 m/s AO V2 VTI: 23.25 cm LVOT Mean V: 0.93 m/s SHAUNA (VTI): 3.36 cm2 LVOT V1 VTI: 24.30 [place] [address] 2 D/M-MODE ECHOCARDIOGRAM Name: ERLINDA CRUZ Room: [address] IN [facility]#: [id number] Admission: 08/16/20 Attend Phys: Martha Turner, Discharge: Date of : 39 Date of Service: 08/19/20 1500 Report #: [id number] Mitral Valve E/A Ratio: 0.75 MV Decel. Time: 8.29 ms MV E Max Sathish.: 0.81 m/s MV PHT: 2.40 ms MVA (PHT): 91.54 cm2 TDI E/Lateral E': 5.06 E/Medial E': 6.23 Medial E' Sathish.: 0.13 m/s Lateral E' Sathish.: 0.16 m/s Pulmonary Valve PV Peak Sathish.: 0.99 m/s PV Peak Gr.: 3.94 mmHg Tricuspid Valve RAP Estimate: 5.00 mmHg TR Peak Gr.: 23.78 mmHg RVSP: 28.00 mmHg PA Pressure: 28.00 mmHg Left Ventricle The left ventricle is normal size. There is normal LV segmental wall motion. There is normal left ventricular wall thickness. Left ventricular systolic function is normal. The left ventricular ejection fraction is within the normal range. LVEF is 55%. Grade I - abnormal relaxation pattern. Right Ventricle The right ventricle is normal size. The right ventricular systolic function is normal. Atria The left atrium size is normal. The right atrium size is normal. Aortic Valve Mild aortic valve sclerosis. No aortic regurgitation is present. There is no aortic valvular stenosis. Mitral Valve The mitral valve is normal in structure. Mild mitral regurgitation. No evidence of mitral valve stenosis. Tricuspid Valve The tricuspid valve is normal in structure. No pulmonary hypertension. Mild [place] [address] 2 D/M-MODE ECHOCARDIOGRAM Name: ERLINDA CRUZ Room: [address]#: [id number] Admission: 08/16/20 Attend Phys: Martha Turner, Discharge: Date of : 39 Date of Service: 08/19/20 1500 Report #: [id number] Pulmonic Valve The pulmonary valve is normal in structure. There is no pulmonic valvular regurgitation. Great Vessels The aortic root is normal in size. IVC is not visualized. Pericardium There is no pericardial effusion. <Conclusion> The left ventricle is normal size. There is normal left ventricular wall thickness. Left ventricular systolic function is normal. The left ventricular ejection fraction is within the normal range. LVEF is 55%. Grade I - abnormal relaxation pattern. The right ventricle is normal size. The left atrium size is normal. Mild aortic valve sclerosis. No aortic regurgitation is present. There is no aortic valvular stenosis. The mitral valve is normal in structure. Mild mitral regurgitation. The tricuspid valve is normal in structure. No pulmonary hypertension. Mild tricuspid regurgitation. There is no pericardial effusion. There is normal LV segmental wall motion. <ELECTRONICALLY SIGNED> By: Ramon Green MD, [facility]ACC 08/19/20 1500 1500 1500 Ramon Green MD, FACC /INF
--- NOTE | 2020-08-19 15:16 | NUR ---
Pt remains on vent with IV pressors, NG to suction, blood transfusion today. Case and plan of care reviewed with MD. CM will continue to follow for discharge planning needs
[2020-08-19 17:44] LABS: HEMATOCRIT 22.2 % (42.0-52.0); HEMOGLOBIN 7.4 gm/dL (14.0-18.0)
[2020-08-20] VITALS (46 sets, daily range): BP systolic 88–126; BP diastolic 37–68
[2020-08-20 03:13] LABS: HEMATOCRIT 20.8 % (42.0-52.0); MCH 30.3 pg (26.0-34.0); MCHC 33.8 g/dL (28.0-37.0); MCV 89.7 fL (80.0-100.0); MPV 7.8 fl. (7.2-11.1); RBC 2.32 mil/uL (4.50-6.00); RDW-CV 14.7 % (10.5-14.5); WBC 8.1 thou/uL (4.0-11.0)
[2020-08-20 03:24] LABS: ALBUMIN 2.3 g/dL (3.4-5.0); CALCIUM 8.3 mg/dL (8.5-10.1); CREATININE 3.2 mg/dL (0.6-1.3); MAGNESIUM 1.8 mg/dL (1.8-2.4); POTASSIUM 3.4 mmol/L (3.5-5.1); TOTAL BILIRUBIN 0.5 mg/dL (<0.1-1.0); TOTAL PROTEIN 4.7 g/dL (6.4-8.2)
--- NOTE | 2020-08-20 06:31 | NUR ---
ASSUMED CARE AT 1910H, ON VENT AT 30% AND TOLERATED. SEDATED ONLY WITH FENTANYL AND ON LEVO DRIP, TITRATED. WITH SPONTANIOUS EYE OPENING AT TIMES BUT STILL NOT FOLLOWING COMMANDS. NO DISTRESS AND NO BLEEDING NOTED. CONTINUE MONITORING AND TOWARDS GOALS. LEVO AT 2MICS AND FENTANYL AT 80MICS.
[2020-08-20 07:47] LABS: BE -1.2 mmol/L (-2 to +3); PCO2 41.8 mmHg (35.0-45.0); PO2 72.7 mmHg (75.0-100.0); pH 7.376 (7.340-7.450)
[2020-08-20 11:45] LABS: BE -2.3 mmol/L (-2 to +3); PCO2 37.3 mmHg (35.0-45.0); PO2 85.1 mmHg (75.0-100.0); pH 7.395 (7.340-7.450)
--- NOTE | 2020-08-20 12:18 | NUR ---
RE: pharmacy TPN dosing. 85 y/o male s/p bowel surgery. Note CKD, ischemic hepatitis, metabolic acidosis. 5'8", 87.4 kg (feeding wgt adusted to 76 kg). BEE: 1685 jorge/24 hr. Will apply stress factor. Will restrict TPN volume (ongoing) due to other IV fluid sources. TPN dosing will provide 45 gm protein/day + 795 jorge/day non-protein calories at goal rate. Will remove phosphate from usual electrolyte additives. Will follow. thank you.
--- NOTE | 2020-08-20 13:00 | CON ---
[address] [address] CONSULTATION Name: ERLINDA CRUZ Room: [address] ADM IN M.R.#: [id number] Admission: 08/16/20 Attend Phys: Martha Turner MD Discharge: Date of : 37 Report #: [id number] THIS REPORT FOR: cc: David Cartagena Vincent R. DO Pervez, Adeel MD ~ DOC #: [id number] Franky Hubbard MD DATE OF CONSULTATION: 08/18/2020 CONSULT REQUESTED BY: Dr. Koch. INDICATION FOR CONSULTATION: Ventilator management. HISTORY OF PRESENT ILLNESS: An 85-year-old gentleman with past medical history does include a history of smoking. The patient however does not previously carry a diagnosis of COPD. There are some ground-glass opacities noted on his old CT, which is also seen on the CT done during this admission. The patient has a history of left kidney atrophy and has had a urostomy as well as an ileal conduit, this time came in with severe abdominal pain as well as nausea, eventually was evaluated with a CT chest, abdomen and pelvis and was found to have peritonitis with a small bowel volvulus and a small bowel necrosis. He is now status post exploratory laparotomy. The patient currently is in severe shock. He is also in acute renal failure. The patient is currently on 60% FiO2 with 5 of PEEP. He is currently oxygenating and ventilating adequately. He is on a high dose of norepinephrine as well as on vasopressin to maintain blood pressure. He currently does not have any significant urine output. He initially had significant metabolic acidosis, which has now improved with the administration of sodium bicarbonate. The patient does have a femoral central line, he also does have an arterial line. The patient is on the ventilator and therefore is unable to provide further history or review of systems. PAST MEDICAL HISTORY: Ground-glass opacities on previous as well as new CT chest, does not have a previous diagnosis of respiratory disease to my knowledge, coronary artery disease status post CABG, hypertension, hyperlipidemia, restless leg syndrome, cholecystectomy, left kidney atrophy, status post ileal conduit as well as urostomy in the past, iron deficiency anemia, B12 deficiency, repair for colon injury, gastroesophageal reflux disease, reported to be on long-term PPI, diabetes. The patient's last available echocardiogram is from 2018 and shows a normal left ventricular ejection fraction of 55-60% without elevation in right heart pressures. His baseline creatinine from 06/2019 was 1.0, it had subsequently increased to 1.3-1.5 on 07/31/2019, it is not known to me as to whether it ever returned [place] [address] CONSULTATION Name: ERLINDA CRUZ Room: [address] IN [facility]#: [id number] Admission: 08/16/20 Attend Phys: Martha Turner MD Discharge: Date of : 37 Report #: [id number] SOCIAL HISTORY: The patient is reported to have had a previous history of smoking, has now discontinued. Unable to quantify exactly at this time. No known history of heavy alcohol use or illegal drug use. CURRENT MEDICATIONS: List in [facility] reviewed. [facility]. ALLERGIES: He has had anxiety with the use of Benadryl and not likely to be a true allergy. FAMILY HISTORY: There is no pertinent family history known at this time. PHYSICAL EXAMINATION: GENERAL: The patient is sedated with fentanyl. He did respond to painful stimuli. VITAL SIGNS: He is on a tidal volume of 450 with an AC rate of 18, FiO2 is 60%. He is on 5 of PEEP. He was not overbreathing the ventilator at the time of my evaluation, he was significantly tachycardic with a heart rate of 150, blood pressure is 120/59 and he is saturating 100%. He has a low-grade fever of 37.6. The patient however was on 17 of norepinephrine as well as 0.04 of vasopressin. Body mass index was 24.4. HEENT: Normocephalic and atraumatic. Pupils are bilaterally constricted but reactive. There is an endotracheal tube in good position. NECK: Does not show raised JVP asymmetry, mass or lymph nodes. CHEST: Symmetrical expansion on inspection and palpation. On auscultation, chest is clear. HEART: Regular. There is significant tachycardia. There is no murmur. ABDOMEN: Soft. There are surgical dressings in place. EXTREMITIES: Lower extremities show no edema, no calf tenderness. SKIN: Dry and intact. NEUROLOGIC: He did move all extremities bilaterally and equally to pain. He is on sedation with fentanyl at 50. DIAGNOSTIC AND LABORATORY DATA: The patient's chest x-ray shows an endotracheal tube in good position in addition to some increase in reticular markings, which are at his baseline consistent with ground-glass opacities seen on his previous x-rays, there may be mild increase in pulmonary vascular congestion; however, the patient is oxygenating and ventilating adequately. The patient is in acute renal failure on his chemistries. He initially did have a significant acidosis as well. Elevated LFTs are noted. The patient's CBC repeated several times in [facility] reviewed. Coagulation studies in [facility] reviewed. Arterial blood gases initially showing significant metabolic acidosis with subsequent improvement in [facility] reviewed. Elevated blood [place] [address] CONSULTATION Name: ERLINDA CRUZ Room: [address] ADM IN M.R.#: [id number] Admission: 08/16/20 Attend Phys: Martha Turner MD Discharge: Date of : 37 Report #: [id number] patient has a mild elevation in troponin I to 0.94. ASSESSMENT AND PLAN: 1. Acute hypoxemic respiratory failure secondary to sepsis/septic shock. The patient is currently ventilating and oxygenating adequately. Therefore, I favor continuing with fluid resuscitation considering that he is severely hypotensive. His tidal volume as calculated at 6 mL per kg will be 414 and at 8 mL per kg will be 550. Considering that he is significantly hypotensive, I will not increase his PEEP at this time. In case needed to avoid atelectasis and if his peak airway pressures remain okay, then potentially we can increase his tidal volume up to 550. I will follow along and adjust. If his pH remains within the normal range, I will be inclined to cut back the set rate. He is on fentanyl infusion. I agree with the same. If his blood pressure improves, I will be inclined to increase the rate of the fentanyl infusion. However, I would not do so at this time considering significant hypotension. 2. Severe septic shock secondary to small bowel necrosis/volvulus. The patient is now status post exploratory laparotomy. Agree with continuing with fluid resuscitation, which is being managed by the Nephrology service. I also agree with albumin. Considering severe hypotension if it fails to improve with albumin, I suggest considering use of hydrocortisone. We will check a random cortisol level. Perhaps the case for hydrocortisone will be stronger if the random cortisol level is less than 20, but may still be considered if he continues to need high dose pressors despite fluid resuscitation and albumin ordered by the Nephrology service. 3. Acute renal failure/metabolic acidosis. Nephrology service on the case. We will defer decision regarding CRRT to the Nephrology service. 4. Bilateral ground-glass opacities lung/possible underlying interstitial lung disease. These are seen on the CT performed in this admission, they do not appear to be significantly different from the CT performed in 2019 and I am not aware of any previous workup. He does have a history of smoking, but does not carry a diagnosis of COPD. I held off on giving him nebulized bronchodilators at this time as he is significantly tachycardic and he does not have any obvious active bronchospasm. 5. History of gastroesophageal reflux disease. He is reported to be on long-term PPI at home. This is the reason I have switched him over from Pepcid to Protonix. 6. Mild elevation in troponin I. Cardiology service on the case. A repeat echo pending. 7. Deep venous thrombosis prophylaxis. Considering acute renal failure, suggest considering switching Lovenox over to subcutaneous heparin. 8. Past medical history of atrophic left kidney/ileal conduit/urostomy. The patient is critically [place] [address] CONSULTATION Name: ERLINDA CRUZ Room: [address] IN [facility]#: [id number] Admission: 08/16/20 Attend Phys: Martha Turner MD Discharge: Date of : 37 Report #: [id number] Total time spent providing critical care to this patient today exceeds 42 minutes. MD ANDRE Sr/COSTA/TITUS <ELECTRONICALLY SIGNED> By: Franky Hubbard MD 08/20/20 1300 1230 [id number] Hubbard MD /nt
--- NOTE | 2020-08-20 13:08 | NUR ---
Case and plan of care reviewed with MD. Pt remains sedated on vent. Pressors almost off. IV Abx, Making urine, NG to suction. CM will continue to follow for discharge planning needs.
[2020-08-20 16:15] LABS: HEMATOCRIT 25.6 % (42.0-52.0); HEMOGLOBIN 8.8 gm/dL (14.0-18.0)
--- NOTE | 2020-08-20 16:35 | NUR ---
PT WAS EXTUBATED AT 1158 THIS AM. TOLERATED EXTUBATION WELL AND INITIALLY PLACED ON 3LNC. PT WAS TITRATED UP TO 4LNC MIDDAY D/T DROWSINESS AND A SLIGHT DECLINE IN 02 SATURATION. LEVO GTT HAS BEEN OFF SINCE JUST AFTER 0800 AND PTS SBP AND MAPS HAVE MAINTAINED. FENTANYL GTT WAS TURNED OFF AT 0930 AND D/C POST EXTUBATION. PTS PAIN IS COMTROLLED AT THIS TIME. 1 UNIT OF PRBC TRANSFUSED FOR HGB 7.0, RECHECK HGB 8.8. UO HAS SIGNIFICANTLY INCREASED TODAY. ART LINE D/C, NO LONGER INDICATED. PTS AND SON AT BEDSIDE MAJOORITY OF THE SHIFT AND EDUCATED PROCEDURES TOOK PLACE. POTASSIUM AND MAGNESIUM HAVE BOTH BEEN REPLACED VIA IVF AND WILL BE RECHECKED IN AM PER PROTOCOL.
[2020-08-21] VITALS (34 sets, daily range): BP systolic 103–140; BP diastolic 49–74
[2020-08-21 05:02] LABS: ABSOLUTE LYMPHOCYTES 1.1 thou/uL (0.8-5.3); ABSOLUTE MONOCYTES 0.8 thou/uL (0.0-1.2); ABSOLUTE NEUTROPHILS 10.6 thou/uL (1.6-8.1); BASOPHILS 0.1 %; EOSINOPHILS 0.2 %; HEMATOCRIT 27.7 % (42.0-52.0); HEMOGLOBIN 9.2 gm/dL (14.0-18.0); LYMPHOCYTES 8.9 %; MCH 29.7 pg (26.0-34.0); MCHC 33.1 g/dL (28.0-37.0); MCV 89.7 fL (80.0-100.0); MONOCYTES 6.7 %; MPV 8.6 fl. (7.2-11.1); NUCLEATED RBCS 0 /100WBC; PLATELET COUNT* 121 thou/uL (150-400); POLYS 84.1 %; RBC 3.09 mil/uL (4.50-6.00); RDW-CV 15.4 % (10.5-14.5); WBC 12.6 thou/uL (4.0-11.0)
[2020-08-21 06:08] LABS: CALCIUM 8.3 mg/dL (8.5-10.1); PHOSPHORUS* 4.3 mg/dL (2.5-4.9); POTASSIUM 3.6 mmol/L (3.5-5.1)
[2020-08-21 06:15] LABS: ALBUMIN 2.3 g/dL (3.4-5.0); CALCIUM 8.4 mg/dL (8.5-10.1); MAGNESIUM 2.2 mg/dL (1.8-2.4); POTASSIUM 3.7 mmol/L (3.5-5.1); TOTAL BILIRUBIN 0.4 mg/dL (<0.1-1.0); TOTAL PROTEIN 5.2 g/dL (6.4-8.2)
[2020-08-21 08:12] LABS: BE -8.5 mmol/L (-2 to +3); PCO2 35.2 mmHg (35.0-45.0); PO2 65.9 mmHg (75.0-100.0); pH 7.302 (7.340-7.450)
--- NOTE | 2020-08-21 18:07 | NUR ---
PT TOLERATED INCREASED MOBILITY TODAY. SAT EOB SEVERAL TIMES. UP TO BSC SEVERAL TIMES WELL AND WAS ABLE TO STAND-PIVOT WITH MOD ASSIST. BM X2. PT TOLERATED LIQUID DIET TODAY, NO C/O OF N/V. MULTIPLE C.O OF PAIN, PRN FENT ADMINISTERED. AFEBRILE. ALL OTHER VSS. VENTRAL LINE REMOVED PER MD ORDER.
[2020-08-22] VITALS (20 sets, daily range): BP systolic 90–130; BP diastolic 44–76
[2020-08-22 04:01] LABS: ABSOLUTE EOSINOPHILS 0.2 thou/uL (0.0-0.7); ABSOLUTE LYMPHOCYTES 0.8 thou/uL (0.8-5.3); ABSOLUTE MONOCYTES 0.8 thou/uL (0.0-1.2); ABSOLUTE NEUTROPHILS 6.1 thou/uL (1.6-8.1); BASOPHILS 0.3 %; EOSINOPHILS 2.9 %; HEMATOCRIT 28.9 % (42.0-52.0); HEMOGLOBIN 9.5 gm/dL (14.0-18.0); LYMPHOCYTES 9.6 %; MCH 29.4 pg (26.0-34.0); MCHC 32.9 g/dL (28.0-37.0); MCV 89.3 fL (80.0-100.0); MONOCYTES 10.4 %; MPV 8.5 fl. (7.2-11.1); NUCLEATED RBCS 0 /100WBC; PLATELET COUNT* 122 thou/uL (150-400); POLYS 76.8 %; RBC 3.23 mil/uL (4.50-6.00); RDW-CV 14.6 % (10.5-14.5); WBC 7.9 thou/uL (4.0-11.0)
[2020-08-22 04:14] LABS: ALBUMIN 2.2 g/dL (3.4-5.0); CALCIUM 8.7 mg/dL (8.5-10.1); CREATININE 2.9 mg/dL (0.6-1.3); TOTAL BILIRUBIN 0.4 mg/dL (<0.1-1.0)
[2020-08-23] VITALS (22 sets, daily range): BP systolic 88–133; BP diastolic 23–71
[2020-08-23 02:28] LABS: ABSOLUTE EOSINOPHILS 0.3 thou/uL (0.0-0.7); ABSOLUTE LYMPHOCYTES 1.2 thou/uL (0.8-5.3); ABSOLUTE MONOCYTES 0.9 thou/uL (0.0-1.2); ABSOLUTE NEUTROPHILS 4.7 thou/uL (1.6-8.1); BASOPHILS 0.2 %; HEMATOCRIT 29.4 % (42.0-52.0); HEMOGLOBIN 9.8 gm/dL (14.0-18.0); LYMPHOCYTES 17.4 %; MCH 29.9 pg (26.0-34.0); MCHC 33.3 g/dL (28.0-37.0); MCV 89.8 fL (80.0-100.0); MONOCYTES 12.3 %; MPV 7.6 fl. (7.2-11.1); NUCLEATED RBCS 0 /100WBC; PLATELET COUNT* 137 thou/uL (150-400); POLYS 66.1 %; RBC 3.27 mil/uL (4.50-6.00); RDW-CV 15.4 % (10.5-14.5); WBC 7.2 thou/uL (4.0-11.0)
[2020-08-23 02:38] LABS: ALBUMIN 2.2 g/dL (3.4-5.0); CALCIUM 8.7 mg/dL (8.5-10.1); CREATININE 2.7 mg/dL (0.6-1.3); MAGNESIUM 1.7 mg/dL (1.8-2.4); PHOSPHORUS* 3.5 mg/dL (2.5-4.9); POTASSIUM 3.1 mmol/L (3.5-5.1); TOTAL BILIRUBIN 0.3 mg/dL (<0.1-1.0); TOTAL PROTEIN 5.2 g/dL (6.4-8.2)
[2020-08-23 02:42] LABS: PREALBUMIN 10.2 mg/dL (18.0-35.7)
--- NOTE | 2020-08-23 08:05 | NUR ---
ASSUMED PATIENT CARE AT 1900. ASSESSMENTS COMPLETED CHARTED. CARDIAC MONITORING IN PLACE. PATIENT HAD 3 BOWEL MOVEMENTS DURING SHIFT. MIDLINE DRESSING AND OSTOMY DRESSING CHANGED BY BOAT PERSON THIS MORNING. HOURLY ROUNDING IN PLACE FOR PATIENT SAFETY. FALL PRECAUTIONS IN PLACE FOR PATIENT SAFETY. BED LOCKED AND IN LOWEST POSITION. CLWR.
[2020-08-23 13:41] LABS: CALCIUM 8.6 mg/dL (8.5-10.1); CREATININE 2.4 mg/dL (0.6-1.3); POTASSIUM 3.6 mmol/L (3.5-5.1)
--- NOTE | 2020-08-23 15:33 | NUR ---
PLAN OF CARE: AWAITING SX CLEARANCE. INPT REHAB CONSULTED. PT/OT/ST EVALS PENDING AND WILL ASSIST IN DETERMINING PT'S MOBILITY AND CM D/C PLANNING NEEDS. CM WILL REMAIN AVAILABLE TO ASSIST AND FOLLOW NEEDED.
[2020-08-24] VITALS (15 sets, daily range): BP systolic 93–130; BP diastolic 47–63
--- NOTE | 2020-08-24 04:17 | NUR ---
ASSUMED CARE AT 1910H, ON NC AT 4LPM AND TOLERATED. AO X4. NO FEVER AND NO BLEEDING NOTED. PT HAD DIARRHEA, C.DIFF SENT. PT TOLERATED GOING TO COMMODE. HAD AN ABDOMINAL PAIN, PRN MED GIVEN. DIARRHEA STOP PAST MIDNIGHT. CONTINUE MONITORING AND TOWARDS GOALS. PT REQUESTING TO HAVE A SLEEPING PILL TONIGHT.
[2020-08-24 04:37] LABS: HEMATOCRIT 27.3 % (42.0-52.0); MCH 29.6 pg (26.0-34.0); MCHC 32.9 g/dL (28.0-37.0); MCV 89.9 fL (80.0-100.0); MPV 8.1 fl. (7.2-11.1); RBC 3.04 mil/uL (4.50-6.00); RDW-CV 14.4 % (10.5-14.5); WBC 5.9 thou/uL (4.0-11.0)
[2020-08-24 05:02] LABS: CALCIUM 8.3 mg/dL (8.5-10.1); CREATININE 2.3 mg/dL (0.6-1.3); MAGNESIUM 1.7 mg/dL (1.8-2.4); PHOSPHORUS* 3.3 mg/dL (2.5-4.9); POTASSIUM 3.4 mmol/L (3.5-5.1); TOTAL BILIRUBIN 0.3 mg/dL (<0.1-1.0); TOTAL PROTEIN 4.8 g/dL (6.4-8.2)
[2020-08-24 10:17] LABS: MAGNESIUM 2.1 mg/dL (1.8-2.4); POTASSIUM 3.8 mmol/L (3.5-5.1)
--- NOTE | 2020-08-24 13:35 | NUR ---
Patient tele status since 08/23. Remains on 4L NC. Therapies to see patient today to determine rehab acceptance. OT still pending consult at this time. Plan will be for IN rehab at dc. CM to continue to follow for safe dc planning
--- NOTE | 2020-08-24 17:42 | NUR ---
ALL ASSESSMENTS COMPLETED CHARTED. FALL RISK PRECAUTIONS IN PLACE FOR PATIENT SAFETY. PT GAINING STRENGTH, PROGRESSING TOWARDS GOALS. CDIFF CAME BACK NEGATIVE, AND NO DIARRHEA DURING MY SHIFT. PT HAD 2 SOFT BOWEL MOVEMENTS THIS MORNING. PT TELE STATUS.
--- NOTE | 2020-08-25 00:30 | NUR ---
RECEIVED REPORT AND ASSUMED CARE AT 2215. PT FROM ICU 004 TO 214, TRANSPORTED BY NURSING STAFF IN WHEELCHAIR. VSS, ASSESSMENT COMPLETED. ARMANI DRAIN SITE CLEANED/ INTACT. MIDLINE INCISION DRESSING C/D/I. PT UP WITH ASSIST TO BSC. ON 3L NC. BED LOCKED IN LOWEST POSTIION, CALL LIGHT WITHIN REACH. PT REPORTS PAIN, PRN MEDICATION PER ORDERS. REPORT GIVEN TO MALIK SNIDER.
[2020-08-25 04:00] VITALS: BP 115/61
[2020-08-25 04:19] LABS: ABSOLUTE EOSINOPHILS 0.3 thou/uL (0.0-0.7); ABSOLUTE LYMPHOCYTES 1.1 thou/uL (0.8-5.3); ABSOLUTE MONOCYTES 0.8 thou/uL (0.0-1.2); ABSOLUTE NEUTROPHILS 3.7 thou/uL (1.6-8.1); BASOPHILS 0.4 %; EOSINOPHILS 5.2 %; HEMATOCRIT 25.7 % (42.0-52.0); HEMOGLOBIN 8.5 gm/dL (14.0-18.0); LYMPHOCYTES 18.3 %; MCH 29.7 pg (26.0-34.0); MCHC 33.1 g/dL (28.0-37.0); MCV 89.7 fL (80.0-100.0); MONOCYTES 14.2 %; MPV 7.6 fl. (7.2-11.1); NUCLEATED RBCS 0 /100WBC; PLATELET COUNT* 187 thou/uL (150-400); POLYS 61.9 %; RBC 2.87 mil/uL (4.50-6.00); RDW-CV 14.6 % (10.5-14.5); WBC 5.9 thou/uL (4.0-11.0)
[2020-08-25 04:25] LABS: CALCIUM 8.2 mg/dL (8.5-10.1); CREATININE 1.9 mg/dL (0.6-1.3); MAGNESIUM 1.5 mg/dL (1.8-2.4); PHOSPHORUS* 3.8 mg/dL (2.5-4.9); POTASSIUM 4.3 mmol/L (3.5-5.1)
--- NOTE | 2020-08-25 04:34 | NUR ---
ASSSUMED PT CARE AT APPROX 0000 AFTER REPORT FROM MARC SNIDER. REASSESSMENT REVIEWED AND THIS NURSE AGREES. PT C/O PAIN ON INCISION SITE, RELIEVED BY PAIN MEDS GIVEN PER JUN. PT IS NOT IN DISTRESS, NO ACUTE CHANGES NOTED THIS SHIFT. CALL LIGHT WITHIN REACH. HOURLY ROUNDING DONE FOR PT SAFETY. HIGH FALL PRECAUTIONS IN PLACE.
--- NOTE | 2020-08-25 11:07 | PATH ---
[address] [address] PATHOLOGY RPT PROCEDURE Name: ERLINDA CRUZ Room: [address] IN M.R.#: [id number] Admission: 08/16/20 Date of : 37 Discharge: Report #: [id number] Path Case #: [id number] [facility] Accession Number: [id number] . 01 Material submitted: . small intestine - SMALL INTESTINE . 01 Clinical history: . PERITONITIS . 02 Diagnosis: Small intestine: - Segment of benign small intestine with intact anastomosed bowel near one end and with segmental mucosal necrosis, fresh hemorrhage and transmural active inflammation and chronic and acute serositis. See comment. (CARROLL:jessica; 08/24/2020) MBR 08/25/2020 1041 Local . 02 Comment: In a section taken from the anastomosis (A3), some of the bowel has a colonic appearance interpreted as a metaplastic process. One of the marginal sections (A1) shows mucosal necrosis although the bowel wall is viable. . Discussed with Dr. Peters on afternoon of 08/24/2020. . (CARROLL:jessica; 08/24/2020) . 02 Electronically signed: . Robert Allen MD, Pathologist NPI- [id number] . 01 Gross description: . The specimen is received in formalin, labeled "David Erlinda, small intestine" and consists of a segment of small intestine with a predominately smooth serosa having red-purple areas. The diffusely congested segment of unoriented small bowel is opened to reveal abundant blood clot and is remarkable for grossly viable areas within 4.5 cm of either end margin. Although the mesentery is irregular, no adhesions are noted. At one end margin, an area consistent with a side to side anastomosis is noted. The total length of the bowel is 75 cm with circumferencs ranging from 4-8.5 cm. Away from the watershed areas, the mucosa is red-purple, congested with a normal folding pattern. Perforations or exudate are not identified. The wall measures up to 0.4 cm. The specimen is photographed. Drier Attendant sections are submitted in 6 cassettes as follows: . A1 perpendicular section of end [place] [address] PATHOLOGY RPT PROCEDURE Name: DAVIDERLINDA EUCEDA Room: [address] IN M.R.#: [id number] Admission: 08/16/20 Date of : 37 Discharge: Report #: [id number] Path Case #: [id number] A2 perpendicular section with black ink of opposite end margin close to anastomotic area A3-A4 anastomotic area (suzette removed) A5 watershed area corresponding to tissue in cassette A1 A6 watershed area corresponding to tissue in cassette A2 ([facility]; 08/19/2020) ELIESER/ELIESER 08/25/2020 1041 Local . 02 Pathologist provided ICD-10: K52.9, K63.89 . 02 CPT . 528022 Specimen Comment: A courtesy copy of this report has been sent to [phone] Specimen Comment: Report sent to Performed at: [address], [place] [id number] MD Al Watson MD Phone: [phone] Performed at: 02 [facility] [address], [place], [place] [id number] MD Robert Allen MD Phone: [phone]
[2020-08-25 12:58] VITALS: BP 116/70
--- NOTE | 2020-08-25 14:48 | NUR ---
Anticipate dc tomorrow to rehab, pending surgery clearance. FUNERAL DRIVER to see today.
[2020-08-25 18:55] VITALS: BP 119/59
[2020-08-26 00:16] VITALS: BP 102/52
[2020-08-26 04:19] VITALS: BP 116/59
[2020-08-26 05:22] LABS: CALCIUM 8.6 mg/dL (8.5-10.1); CREATININE 1.7 mg/dL (0.6-1.3); MAGNESIUM 1.8 mg/dL (1.8-2.4); PHOSPHORUS* 4.8 mg/dL (2.5-4.9); POTASSIUM 4.4 mmol/L (3.5-5.1)
[2020-08-26 12:00] VITALS: BP 130/57
--- NOTE | 2020-08-26 13:29 | NUR ---
Pt will be medically stable to dc to ARU tomorrow. ID consulted.
[2020-08-26 17:43] VITALS: BP 112/62
[2020-08-27] VITALS: BP 113/55
[2020-08-27 04:00] VITALS: BP 114/54
[2020-08-27 04:15] LABS: HEMATOCRIT 26.2 % (42.0-52.0); HEMOGLOBIN 8.4 gm/dL (14.0-18.0); MCH 29.1 pg (26.0-34.0); MCHC 32.1 g/dL (28.0-37.0); MCV 90.7 fL (80.0-100.0); MPV 7.7 fl. (7.2-11.1); RBC 2.89 mil/uL (4.50-6.00); RDW-CV 14.4 % (10.5-14.5)
[2020-08-27 04:19] LABS: CALCIUM 8.3 mg/dL (8.5-10.1); CREATININE 1.6 mg/dL (0.6-1.3); POTASSIUM 4.5 mmol/L (3.5-5.1)
[2020-08-27 07:30] VITALS: BP 105/58
[2020-08-27 07:45] VITALS: BP 105/58
[2020-08-27] MEDS ORDERED: DOXYCYCLINE 10100 MG PO (10:48)
[2020-08-27] MEDS ORDERED: HEPARIN SO5000 UNIT/ SUBQ (10:48)
[2020-08-27] MEDS ORDERED: FLAGYL500 M1 PO (10:48)
[2020-08-27] MEDS ORDERED: HUMALOG100 UNIT/1 SUBQ (10:48)
[2020-08-27] MEDS ORDERED: LEVOFLOXACIN500 MG PO (10:48)
[2020-08-27 11:39] VITALS: BP 117/56
--- NOTE | 2020-08-27 13:17 | H ---
[place] [address] HISTORY AND PHYSICAL Name: ERLINDA CRUZ Room: [address] IN [facility].#: [id number] Admission: 08/16/20 Attend Phys: Martha Turner MD Discharge: Date of : 37 Report #: [id number] THIS REPORT FOR: cc: David Cartagena Vincent R. DO Khan, Abid R. MD ~ DOC #: [id number] Roopa Gonzáles MD ADMIT DATE: 08/18/2020 NEPHROLOGY CONSULTATION CONSULTING PHYSICIAN: Dr. Turner. REASON FOR CONSULTATION: Acute kidney injury. HISTORY OF PRESENT ILLNESS: This is an 85-year-old gentleman who I am asked to see for acute kidney injury. He developed a small-bowel obstruction secondary to volvulus and was taken to the OR for emergent ex-lap and small bowel resection, was found to have a necrotic bowel, developed septic shock and is currently on multiple vasopressors. He developed severe metabolic and lactic acidosis with a pH of 7.0. He was started on bicarbonate. His creatinine has subsequently bumped up, which is why I am asked to see him. His creatinine was 1.9 on 08/16, 1.6 on 08/17, and then jumped up to 2.7 today. His family is present at bedside and history is obtained and reviewed with him as well. REVIEW OF SYSTEMS: Constitutional, psych, heme, eyes, ENT, respiratory, cardiac, GI, , endocrine, all negative except as documented above and as best as can be ascertained from chart review. PAST MEDICAL HISTORY: Hypertension, coronary artery disease with 3-vessel CABG, prostate cancer with pelvic radiation and urostomy 07/01/2020, duh-agqaarn-kzorzmhrv diabetes. FAMILY HISTORY: Nonpertinent in this 85-year-old gentleman. SOCIAL HISTORY: . MEDICATIONS: Reviewed. PHYSICAL EXAMINATION: VITAL SIGNS: Blood pressure 120/59, pulse 140s, respirations 20, temperature 37.6. GENERAL: No acute distress, intubated and sedated. HEENT: Eyes closed. Ears externally normal. CARDIOVASCULAR: [place] [address] HISTORY AND PHYSICAL Name: ERLINDA CRUZ [place] Room: [address]#: [id number] Admission: 08/16/20 Attend Phys: Martha Turner MD Discharge: Date of : 37 Report #: [id number] LUNGS: Diminished. ABDOMEN: Bandaged. MUSCULOSKELETAL: Nontender. NEUROLOGIC: Intubated and sedated. LABORATORY DATA: White cell count 5.7, hemoglobin 8.5, platelets 245. Sodium 151, potassium 4.3, chloride 115, bicarbonate 22, BUN 54, creatinine 2.7, glucose 192, calcium 8.8, magnesium 2.8. ASSESSMENT: 1. Acute kidney injury in the setting of septic shock and peritonitis. Also, did have a CT angio underlying chronic kidney disease with severe right renal atrophy noted on CT. He has significant hypotension. His 08/17 creatinine was 1.6. up to 2.7 on 08/18. Urinalysis is noted. 2. Chronic kidney disease stage 3B. In 07/2019, creatinine 1.4. CT demonstrates severe right renal atrophy. His tells me this is congenital. 3. Left 3 mm kidney stone without obstruction. 4. History of prostate cancer with pelvic radiation and history of bladder cancer with ileal conduit 06/2020 at [facility]. 5. Kjx-meyrshb-tzqadiump diabetes. 6. Septic shock, necrotic bowel and peritonitis status post exploratory laparotomy. 7. Metabolic/lactic acidosis. 8. Hypernatremia. 9. Coronary artery disease with 3-vessel coronary artery bypass graft. 10. Hypoalbuminemia. Albumin 2.6. 11. Anemia. PLAN: 1. The patient is critically ill. He is currently on a bicarbonate drip. We will adjust this and reduce the amount of bicarbonate as his acidosis is improving and his pH is now in the 7.3 range. 2. Caution with Lovenox use in the setting of worsening renal function. 3. On antibiotics. 4. On vasopressors. 5. Case discussed with Dr. Peters and Dr. Bashir. 6. We will administer IV albumin. Case was also discussed with Dr. Hubbard. I did discuss with family. They are okay with dialysis/CRRT if necessary. Currently, no indications. We will follow along with you. Thirty-five minutes critical care time spent. Thank you for requesting my opinion in the care and management of this patient. Roopa [place] [address] HISTORY AND PHYSICAL Name: ERLINDA CRUZ Room: [address] IN M.R.#: [id number] Admission: 08/16/20 Attend Phys: Martha Turner MD Discharge: Date of : 37 Report #: [id number] WALE/SIOMARA <ELECTRONICALLY SIGNED> By: Roopa Gonzáles MD 08/27/20 1317 1128 [id number] Gonzáles MD /nt
--- NOTE | 2020-08-27 13:17 | CON ---
[address] [address] CONSULTATION Name: ERLINDA CRUZ Room: [address] IN [place].#: [id number] Admission: 08/16/20 Attend Phys: Martha Turner MD Discharge: Date of : 37 Report #: [id number] THIS REPORT FOR: cc: David Cartagena Vincent R. DO Khan,Roopa Bedoya MD ~ DOC #: [id number] Roopa Gonzáles MD DATE OF CONSULTATION: 08/18/2020 NEPHROLOGY CONSULTATION CONSULTING PHYSICIAN: Dr. Turner. REASON FOR CONSULTATION: Acute kidney injury. HISTORY OF PRESENT ILLNESS: An 85-year-old gentleman who was admitted with abdominal pain, found to have small-bowel obstruction and had a progressively complicated course where he was evaluated by surgery, taken to the OR urgently and found to have necrotic bowel and peritonitis, developed septic shock requiring vasopressors and creatinine started to increase with severe metabolic acidosis. The patient's family is present at the bedside and helped provide some of the history as well. Case was also discussed with surgery team and a critical care physician as well. REVIEW OF SYSTEMS: Constitutional, psych, heme, eyes, ENT, respiratory, cardiac, GI, , endocrine, all negative except as documented above and as best as can be ascertained. PAST MEDICAL HISTORY: Coronary artery disease with history of CABG, dyslipidemia, hypertension, restless legs, history of chronic kidney disease, history of bladder cancer with ileal conduit, GERD, diabetes. FAMILY HISTORY: Nonpertinent in this 85-year-old gentleman. SOCIAL HISTORY: Former smoker. MEDICATIONS: Reviewed. PHYSICAL EXAMINATION: VITAL SIGNS: Blood pressure is 123/63, pulse is in the 140s-150s, afebrile. GENERAL: No distress. EYES: Closed. EARS: Externally normal. CARDIOVASCULAR: [place] [address] CONSULTATION Name: ERLINDA CRUZ [place] Room: [address]#: [id number] Admission: 08/16/20 Attend Phys: Martha Turner MD Discharge: Date of : 37 Report #: [id number] LUNGS: Diminished. ABDOMEN: Soft. Has a dressing. MUSCULOSKELETAL: Nontender. NEUROLOGIC: Intubated and sedated. LABORATORY DATA: Sodium 151, potassium 4.3, chloride 115, bicarbonate 22, BUN 54, creatinine 2.7, glucose 192, calcium 8.8, magnesium 2. White cell count 7.4, hemoglobin 8.9, platelets 258. ASSESSMENT: 1. Acute kidney injury secondary to acute tubular necrosis with underlying right renal atrophy, small-bowel obstruction and also did have a CTA and has significant hypotension. On 08/17, creatinine was 1.6. On 07/2019, creatinine was 1.4. Creatinine is now 2.7. UA is noted. 2. Septic shock with necrotic bowel and peritonitis. 3. Metabolic/lactic acidosis with a pH of 7.01, bicarbonate of 11 and pCO2 of 45. 4. Hypernatremia. 5. Coronary artery disease with 3-vessel CABG. 6. Underlying History of hypertension. 7. History of bladder cancer, status post ileal conduit in 06/2020 with underlying history of prostate cancer and pelvic radiation. 8. Non-insulin dependent diabetes. 9. Hypoalbuminemia with an albumin of 2.6. 10. Anemia. 11. Chronic kidney disease, stage IIIB. 12. A 3 mm left kidney stone without obstruction. PLAN: 1. Currently on 3 amps of sodium bicarbonate. Because of his hypernatremia, we will change this to D5 with 75 of bicarbonate at 125 mL an hour and repeat labs will be done. Caution with Lovenox use in the setting of renal insufficiency. 2. On antibiotics. 3. Vasopressors. 4. We will administer IV albumin. Case was discussed with surgery, critical care, ICU nurse and patient's . The patient is critically ill, did discuss with the patient's son as well, the possibility of SONG LYRICIST for refractory acidosis. They would like to proceed, should it be necessary. The patient is critically ill. Thirty-five minutes with patient care time was spent. Thank you for requesting my opinion in the care [place] [address] CONSULTATION Name: ERLINDA CRUZ Room: [address] IN [facility]#: [id number] Admission: 08/16/20 Attend Phys: Martha Turner MD Discharge: Date of : 37 Report #: [id number] MD WALE Calderon/CLINT <ELECTRONICALLY SIGNED> By: Roopa Gonzáles MD 08/27/20 1317 0917 [id number] Gonzáles MD /nt
--- NOTE | 2020-08-30 09:37 | OP ---
[address] [address] OPERATIVE REPORT Name: ERLINDA CRUZ Room: [address] IN M.R.#: [id number] Admission: 08/16/20 Attend Phys: Martha Turner MD Discharge: 08/27/20 Date of : 39 Report #: [id number] THIS REPORT FOR: cc: David Cartagena Vincent R. DO Gazzetta, Joshua D. DO ~ DATE OF SERVICE: 08/18/2020 PREOPERATIVE DIAGNOSIS: Peritonitis. 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 PROCEDURE PERFORMED: Exploratory laparotomy, small bowel resection with reanastomosis. INDICATIONS: The patient is an 85-year-old male who presented to the hospital with complaints of abdominal pain. He is status post ileal conduit and cystectomy and prostatectomy last year. His abdominal pain failed to improve and the patient became hypotensive. I was called to the bedside. Abdominal exam revealed peritonitis. He was in septic shock requiring resuscitative efforts. A central line was placed and the patient was consented for exploratory laparotomy. Risks, benefits and alternatives to surgery were described in detail. Risks of bleeding, infection, damage to nearby structures including the ileal conduit, ureters, bowel were described. The patient voiced complete understanding and wished for full care including operative intervention. Discussion was also had with his , Yee, at bedside. OPERATIVE DESCRIPTION: The patient was taken to the operating theater and placed in supine position. Bilateral SCDs were placed and preoperative antibiotics were given. General anesthesia was induced without complication. The patient's abdomen was prepped and draped in the standard sterile fashion. A timeout was performed and all were in agreement. We began by making a midline celiotomy incision. His prior incision went up to the umbilicus. Our incision was supraumbilical and carried just inferior to his umbilicus. Dissection was carried through the dermis using electrocautery. Dissection down to the midline fascia above the umbilicus was done using a combination of blunt and electrocautery dissection. The fascia was scored and elevated into the surgical field using Tigist clamps. The abdomen was entered bluntly using a finger. A finger was used to ensure no midline adhesions, there were none. The entire incision was opened over a finger using electrocautery. As we progressed to the inferior aspect of the incision, there was a large hernia defect. The fascia was opened all the way to the hernia defect. On abdominal entry, there was sanguinous fluid that was suctioned out. Immediately we saw a large area of necrosed small intestine. There were 2 bands extending from the hernia down towards the retroperitoneum. These bands were lysed [place] [address] OPERATIVE REPORT Name: ERLINDA CRUZ Room: [address] IN M.R.#: [id number] Admission: 08/16/20 Attend Phys: Martha Turner MD Discharge: 08/27/20 Date of : 39 Report #: [id number] enabled us to free the loop of small bowel that had volvulized around the adhesion. The small bowel was then run from the ligament of Treitz to the terminal ileum. There is approximately 75 cm of compromised small intestine. The ileal conduit was then packed and out of the operative field, this was left alone. A hemostat was used to create a mesenteric window proximal and distal to the compromised small intestine. A ROSEY stapler blue load was then used to transect the intestine proximal and distal to the small bowel necrosis. The LigaSure device was then used to transect the mesentery. The small bowel specimen was removed from the surgical field and sent to pathology. Next, the small bowel was run again from the ligament of Treitz to the transection point and then again to the terminal ileum. There were no further areas of concern. Large intestine appeared healthy. Stomach was healthy. There was no bilious fluid within the abdomen. Next, an anastomosis was performed. The proximal and distal ends of the small intestine were extracorporealized. A blue towel was placed underneath. Allis clamps were used to grasp the antimesenteric staple lines. The staple lines were cut off using curved Mcmahan scissors. A ROSEY-75 mm blue load was then used to create the common channel. The common channel was then closed using a TA-60 stapler. The anastomosis was approximately 15 cm proximal to the IC valve. The anastomosis was palpated and patent. The mesenteric defect was then closed using a 2-0 Vicryl in a running fashion. There was another mesenteric defect in relation to the ileal conduit, this was also closed with several simple interrupted 2-0 Vicryl stitches. Next, the abdomen was thoroughly irrigated until the effluent ran clear and suctioned dry. Next, the abdominal fascia was closed using two #1 looped PDS sutures, one from the inferior aspect and one from the superior aspect. The large hernia was closed primarly. Prior to the fascial closure, a drain was placed in the pelvis. This was a 19-Emirati ARMANI drain. Next, the subcutaneous tissues were closed using interrupted 3-0 Vicryl stitches. The skin was closed using suzette. The midline incision was dressed with a silver Mepilex dressing. This concluded the procedure. All sponge, needle and instrument counts were correct x 2. COMPLICATIONS: None. FINDINGS: 75 cm of necrotic small bowel secondary to small bowel volvulus around an adhesion. DRAINS: A 19-Emirati ARMANI drain. SPECIMEN: Small intestine. ANESTHESIA: General [place] [address] OPERATIVE REPORT Name: ERLINDA CRUZ Room: [address]#: [id number] Admission: 08/16/20 Attend Phys: Martha Turner MD Discharge: 08/27/20 Date of : 39 Report #: [id number] ESTIMATED BLOOD LOSS: 20 mL. DISPOSITION: The patient was successfully transferred to the Intensive Care Unit and remained intubated in critical condition. <ELECTRONICALLY SIGNED> By: Juan Peters DO 08/30/20 0937 1858 [id number] Peters DO /nt
== END 2020-08-27 16:32 | DRG 853 ==
LOC: M.ERS 17:40 → M.TBA-ER 21:59 → M.2W 21:59 → M.ICU 21:59 → M.2W 22:56 → M.ICU 08-17 23:37 → M.2W 08-24 22:24
PROVIDERS: Emergency Medicine Emergency Medical Services; Internal Medicine; Internal Medicine Critical Care Medicine; Internal Medicine Nephrology; Nurse Practitioner Family; Surgery; ADMIT Internal Medicine; ATTEND Internal Medicine
DX: A41.9 Sepsis, unspecified organism (principal); K56.2 Volvulus; N17.0 Acute kidney failure with tubular necrosis; K65.9 Peritonitis, unspecified; R65.21 Severe sepsis with septic shock; J96.01 Acute respiratory failure with hypoxia; K55.029 Acute infarction of small intestine, extent unspecified; I21.A1 Myocardial infarction type 2; E87.2 Acidosis; E87.0 Hyperosmolality and hypernatremia; D62 Acute posthemorrhagic anemia; N39.0 Urinary tract infection, site not specified; Z20.822 Contact with and (suspected) exposure to COVID-19; E78.00 Pure hypercholesterolemia, unspecified; G25.81 Restless legs syndrome; I25.10 Atherosclerotic heart disease of native coronary artery without angina pectoris; E86.0 Dehydration; E87.6 Hypokalemia; K21.9 Gastro-esophageal reflux disease without esophagitis; N18.32 Chronic kidney disease, stage 3b; I12.9 Hypertensive chronic kidney disease with stage 1 through stage 4 chronic kidney disease, or unspecified chronic kidney disease; N20.0 Calculus of kidney; E11.22 Type 2 diabetes mellitus with diabetic chronic kidney disease; K75.89 Other specified inflammatory liver diseases; Z66 Do not resuscitate; B96.89 Other specified bacterial agents as the cause of diseases classified elsewhere; Z95.1 Presence of aortocoronary bypass graft; Z85.46 Personal history of malignant neoplasm of prostate; Z90.49 Acquired absence of other specified parts of digestive tract; Z90.79 Acquired absence of other genital organ(s); Z79.899 Other long term (current) drug therapy; Z88.8 Allergy status to other drugs, medicaments and biological substances; E83.42 Hypomagnesemia

== ENCOUNTER 2020-08-27 14:48 | Inpatient (IN) | payer MEDICARE ==
[~2020-08-27] VITALS: Ht 172.7 cm; Wt 76.2 kg
[~2020-08-27 14:48] MED LIST changes: +DOXYCYCLINE 10100 MG PO; +FLAGYL500 M1 PO; +HEPARIN SO5000 UNIT/ SUBQ; +HUMALOG100 UNIT/1 SUBQ; +LEVOFLOXACIN500 MG PO
[2020-08-27 20:28] VITALS: BP 130/61
--- NOTE | 2020-08-28 03:12 | NUR ---
PT A&O X 4, VSS ON 1L. MEDS GIVEN ORDERED. ABD PAIN MANAGED WITH OXY IR. MIDLINE DRESSING INTACT. C/O NAUSEA, THEN SUBSIDED WITHOUT MEDS. ICE CHIPS GIVEN. PT UP TO THE BSC WITH MODERATE ASSIST, HAD A LARGE LOOSE BM. UROSTOMY BAG IN PLACE. CALL LIGHT WITHIN REACH. WILL CONTINUE TO MONITOR.
[2020-08-28 05:09] LABS: HEMATOCRIT 27.4 % (42.0-52.0); HEMOGLOBIN 9.1 gm/dL (14.0-18.0); MCHC 33.1 g/dL (28.0-37.0); MCV 90.5 fL (80.0-100.0); MPV 7.9 fl. (7.2-11.1); RBC 3.02 mil/uL (4.50-6.00); RDW-CV 14.2 % (10.5-14.5)
[2020-08-28 06:13] LABS: CALCIUM 8.4 mg/dL (8.5-10.1); CREATININE 1.6 mg/dL (0.6-1.3); POTASSIUM 4.7 mmol/L (3.5-5.1)
[2020-08-28 08:10] VITALS: BP 116/58
[2020-08-28 11:45] VITALS: BP 101/57
--- NOTE | 2020-08-28 16:39 | NUR ---
PATIENT UP WITH ASSISTANCE; GAIT BELT/WALKER. UP TO CHAIR THIS MORNING AND AFTERNOON. PATIENT NOTED TO HAVE DRAINAGE COMING FROM MIDLINE, DRESSING WAS CHANGED X 2. SURGERY WAS NOTIFIED DUE TO DRAINAGE AND PATIENT VOMITING SMALL AMOUNTS X 3. ABD XRAY ORDERED RESULTS CALLED TO SURGERY. SURGERY WAS NOTIFIED AGAIN THIS AFTERNOON ABOUT EXCESS DRAINAGE FROM MIDLINE. CT ABD PELVIS ORDERED STAT, SURGERY NOTIFIED OF RESULTS. UROSTOMY APPLIANCE NEEDING CHANGED, AWAITING SUPPLIES FROM HONING MACHINE SET UP OPERATOR TOOL. PRN OXY IR GIVEN X 1 THIS SHIFT AND ORN ZOFRAN GIVEN X 1. NO MORE VOMITTING SINCE EARLY AFTERNOON. ABX SCHEDULE CHANGED PER DR. BANKS.
[2020-08-28 19:30] VITALS: BP 90/46
--- NOTE | 2020-08-28 19:45 | NUR ---
IN BED WATCHING TV. OXY IR GIVEN FOR COMPLAINT OF GENERALIZED ABDOMINAL PAIN DISCOMFORT. PATIENT STATES HAVE TROUBLE TOLERATING MEDICATIONS. PATIENT CONSUMED A CRACKER AND ZOFRAN GIVEN. UROSTOMY BAG INTACT AND DRAINING YELLOW URINE. CALL LIGHT WITHIN REACH.
[2020-08-29 04:30] LABS: CALCIUM 8.7 mg/dL (8.5-10.1); CREATININE 1.7 mg/dL (0.6-1.3); POTASSIUM 4.1 mmol/L (3.5-5.1)
[2020-08-29 04:31] LABS: HEMOGLOBIN 9.2 gm/dL (14.0-18.0); MCH 29.8 pg (26.0-34.0); MCHC 32.9 g/dL (28.0-37.0); MCV 90.6 fL (80.0-100.0); MPV 7.9 fl. (7.2-11.1); RBC 3.09 mil/uL (4.50-6.00); RDW-CV 14.5 % (10.5-14.5); WBC 9.2 thou/uL (4.0-11.0)
--- NOTE | 2020-08-29 05:02 | NUR ---
MYLANTA GIVEN AT 2030 FOR COMPLAINT OF HEARTBURN. ZOFRAN GIVEN AT 0345 FOR COMPLAINT OF NAUSEA. UP X TWO DURING THE NIGHT TO THE BEDSIDE COMMODE AND HAD A LARGE LOOSE STOOL. TANA CARE GIVEN. HOURLY ROUNDING IN PROGRESS.
[2020-08-29 07:30] VITALS: BP 106/43
--- NOTE | 2020-08-29 16:22 | NUR ---
PATIENT UP TO CHAIR FOR BREAKFAST THEN ASKED FOR ASSISTANCE BACK TO BED. PATIENT UP WITH ASSISTANCE; GAIT BELT AND WALKER. BM NOTED X 1 THIS SHIFT. UROSTOMY BAG REMAINS SEALED AROUND SITE, NO LEAKING NOTED. DRESSING TO MIDLINE CHANGED WHILE DR. GARCIA ROUNDED THIS AM. DR. BANKS NOTIFIED THAT PATIENT C/O THROAT AND CHEST BURNING WHEN SWALLOWING. ORDERS RECEIVED FOR GI COCKTAIL. MEDICATION GIVEN ORDERED, PATIENT ASKED IF THE MEDICATION HELPED AND PATIENT STATED "YOU DIDNT GIVE ME ANYTHING FOR IT, DID YOU?" PATIENT REMINDED THAT LIQUID MEDICATION THAT HE DRANK WAS FOR THE SWALLOWING PAIN. PATIENT TOOK A DRINK AND STATED "NO STILL HURTS." PATIENT INFORMED THAT IT WOULD TAKE TIME TO HEAL. BP MEDS HELD THIS AM FOR SOFT BP, DR. BANKS NOTIFIED. ORDERS FOR ONE TIME NS BOLUS THIS AFTERNOON. THIS NURSE AND NURSE SENIOR DEVELOPER BOTH ATTEMPTED TO START AN IV X 2 EACH, UNSUCCESSFUL. AWAITING ANOTHER STAFF MEMBER TO ATTEMPT. DR. BANKS WAS GIVEN UPDATE ON IV FLUID DELAY. NO VOMITING NOTED THIS SHIFT AND NO PRN ZOFRAN NEEDED. PRN OXY IR WAS GIVEN FOR ABD PAIN, PATIENT SLEEPING UPON REASSESSMENT.
[2020-08-29 19:50] VITALS: BP 111/49
--- NOTE | 2020-08-29 20:15 | NUR ---
RESTING IN BED LISTENING TO TV WHICH IS TURNED UP TO A VERY HIGH VOLUME. PATIENT IS HARD OF HEARING. UROSTOMY BAG INTACT AND DRAINING CLEAR DARK/YELLOW URINE. PAIN MEDICATION GIVEN FOR COMPLAINT OF GENERALIZED ABDOMINAL PAIN RATED "8". MIDLINE DRESSING DRY/INTACT. CALL LIGHT WITHIN REACH.
[2020-08-30 04:58] LABS: HEMATOCRIT 30.4 % (42.0-52.0); HEMOGLOBIN 9.8 gm/dL (14.0-18.0); MCH 29.6 pg (26.0-34.0); MCHC 32.4 g/dL (28.0-37.0); MCV 91.3 fL (80.0-100.0); MPV 7.6 fl. (7.2-11.1); RBC 3.33 mil/uL (4.50-6.00); RDW-CV 14.7 % (10.5-14.5); WBC 9.2 thou/uL (4.0-11.0)
[2020-08-30 05:10] LABS: CALCIUM 8.7 mg/dL (8.5-10.1); CREATININE 1.6 mg/dL (0.6-1.3); POTASSIUM 4.4 mmol/L (3.5-5.1)
--- NOTE | 2020-08-30 05:32 | NUR ---
RESTED ON/OFF. HOURLY ROUNDING IN PROGRESS.
[2020-08-30 08:00] VITALS: BP 106/51
--- NOTE | 2020-08-30 10:10 | NUR ---
Nutrition: Pt admitted to rehab with weakness. Recent bowel resection in July. Pt and state he lost wt from 190 to 160s after bladder surgery in March. He is eating fine. Has a menu and ordering what he likes. He aslo requests Ensure MAX as he likes it. Albumin 2, prealb 9.3. Regular diet. H/o DM, CABG, HTN, bladder cancer, bowel resection. Current wt: 167#. Consult received for "wound." Only wound is surgical on abdomen. Continue oral supplements. Appears at mild nutrition risk. Will follow weekly.
--- NOTE | 2020-08-30 16:39 | NUR ---
AM ASSESSMENT AND VITAL SIGNS COMPLETED DOCUMENTED. PT COMPLETED ALL THERAPY SESSIONS TODAY, ONLY COMPLAINED OF FATIGUE. ABDOMINAL DRESSING IS C/D/I. UROSTOMY APPLIANCE IS INTACT, URINE OUTPUT IS CLEAR YELLOW. PT IS MIN ASSIST WITH TRANSFERS AND AMBULATING TO THE TOILET. FALL PRECAUTIONS AND HOURLY ROUNDING CONTINUES.
[2020-08-30 19:00] VITALS: BP 88/39
--- NOTE | 2020-08-30 20:40 | NUR ---
RESTING QUIETLY IN BED AND WATCHING TV. CLEAR/YELLOW URINE DRAINING FROM UROSTOMY. MIDLINE DRESSING DRY/INTACT. PAIN MEDICATION GIVEN FOR COMPLAINT OF GENERALIZED ABDOMINAL PAIN RATED "9". CALL LIGHT WTIHIN REACH.
--- NOTE | 2020-08-31 05:17 | NUR ---
RESTED QUIETLY. NO FURTHER COMPLAINT OF PAIN. HOURLY ROUNDING IN PROGRESS.
[2020-08-31 07:30] VITALS: BP 107/54
--- NOTE | 2020-08-31 17:56 | NUR ---
PATIENT HAS REMAINED A&OX4, PLEASANT AND COOPERATIVE WITH CARES THIS SHIFT. MEDICATIONS ADMINISTERED ORDERED. UROSTOMY APPLIANCE REPLACED AND DRESSING CHANGED TO MIDLINE INCISION THIS AFTERNOON. PATIENT REFUSED COLACE THIS MORNING, DR. BANKS NOTIFIED. PATIENT HAD AT LEAST ONE SMALL LOOSE BM THIS SHIFT. AT BEDSIDE MOST OF DAY. CALL LIGHT AND FREQUENTLY USED ITEMS WITHIN REACH.
[2020-08-31 19:00] VITALS: BP 111/51
[2020-09-01 04:57] LABS: HEMATOCRIT 27.1 % (42.0-52.0); HEMOGLOBIN 8.9 gm/dL (14.0-18.0); MCH 29.8 pg (26.0-34.0); MCHC 32.8 g/dL (28.0-37.0); MCV 90.9 fL (80.0-100.0); MPV 7.3 fl. (7.2-11.1); RBC 2.98 mil/uL (4.50-6.00); RDW-CV 14.3 % (10.5-14.5); WBC 8.8 thou/uL (4.0-11.0)
[2020-09-01 05:14] LABS: CALCIUM 8.7 mg/dL (8.5-10.1); CREATININE 1.7 mg/dL (0.6-1.3); POTASSIUM 4.3 mmol/L (3.5-5.1)
[2020-09-01 08:00] VITALS: BP 116/59
--- NOTE | 2020-09-01 16:27 | NUR ---
PT'S ILEOSTOMY WAS LEAKING THIS AM. THE DEVICE WAS CHANGED. PT SITTING UP IN HIS CHAIR EATING BREAKFAST, IN ROOM WITH PT. PT WENT TO WORK WITH PT AND THEN CAME BACK AND THREW UP. PT WAS RESTING ON BED STATES HIS HEARTBURN IS REALLY BOTHERING HIM I TAKE OMPERAZOLE AT HOME AND DON NOT HAVE ANY PROBLEMS. TRIED TO SWITCH TO OMPERAZOLE FOR PT BUT NOT ON FORMULARY HERE AT THIS HOSPITAL. WILL CONTINUE TO MONITOR PLAN OF CARE.
[2020-09-01 20:31] VITALS: BP 89/43
--- NOTE | 2020-09-01 21:00 | NUR ---
RESTING QUIETLY IN BED AND WATCHING THE [employer] ON TV. DENIES DISCOMFORT. AFTER VIEWING UROSTOMY PATIENT BLURTED OUT THAT THE APPLIANCE NEEDED CHANGING. NO DRESSING ON THE MIDLINE. APPLIED NEW APPLIANCE ON UROSTOMY. PATIENT VERY PARTICULAR AND CONDESCENDING ABOUT HOW TO APPLY APPLIANCE. CLEANSED MIDLINE WITH WOUND SPRAY AND APPLIED ABD DRESSING AND SECURED IT WITH PAPER TAPE. INCISION HAS A FEW AREAS OF DEHISCENCE. SOME OF THE JONELLE ARE SIDEWAYS AND PARTIALLY OUT. PARTS OF THE INCISION IS RED BUT LESS SO THAN OBSERVED TWO DAYS AGO. CALL LIGHT WITHIN REACH.
--- NOTE | 2020-09-02 18:31 | NUR ---
AM ASSESSMENT AND VITAL SIGNS COMPLETED DOCUMENTED. PT PARTICIPATED IN ALL THERAPIES AND TOLERATED WELL. UROSTOMY BAG AND MIDLINE ABDOMINAL DRESSING REMAIN INTACT. FALL PRECAUTIONS AND HOURLY ROUNDING CONTINUE.
[2020-09-02 19:54] VITALS: BP 110/47
--- NOTE | 2020-09-03 01:41 | NUR ---
ASSUMED CARE AT 191. PATIENT RESTING IN BED. ILEOSTOMY DRAINING TIFFANIE URINE. MEDICGED FOR PAIN AFTER HS, SEE JUN. . SALINE LOCK TO LT WRIST. TAKES PILLS WHOLE WITH WATER. MIDLINE INCISION C/D/I. ASSISTED WITH TURNS. HOURLY ROUNDS CONTINUE. BED ALARM ON. CALL LITE IN REACH.
--- NOTE | 2020-09-03 07:00 | NUR ---
SLEPT MOST OF THE SHIFT. UROSTOMY DRAINING TIFFANIE URINE. NO FURTHER C/O PAIN. HOURLY ROUNDS CONTINUE. BED ALARM ON. HOURLY ROUNDS CONTINUE.
[2020-09-03 07:30] VITALS: BP 101/51
--- NOTE | 2020-09-03 16:41 | NUR ---
AM ASSESSMENT AND VITALS SIGNS COMPLETED DOCUMENTED. PT WORKED WITH ALL THERAPIES AND TOLERATED WELL. ILEOSTOMY APPLIANCE WAS LEAKING SO IT WAS CHANGED. MIDLINE ABDOMINAL DRESSING ALSO CHANGED. FALL PRECAUTIONS AND HOURLY ROUNDING CONTINUE.
[2020-09-03 20:27] VITALS: BP 129/60
[2020-09-04 09:30] VITALS: BP 113/57
--- NOTE | 2020-09-04 18:12 | NUR ---
ALERT AND ORIENTED X4. UP WITH STAND BY ASSIST, GAIT BELT AND WALKER TO BATHROOM. HAS UROSTOMY PATENT WITH CLEAR YELLOW URINE. DRESSING ON ABDOMEN AND CHANGED. JONELLE REMAIN INTACT OVER ABDOMEN INCISION. UROSTOMY BAG CHANGED. USES CALL LIGHT FOR ASSIST. BED ALARM AND CHAIR ALARM USED.
[2020-09-04 19:00] VITALS: BP 98/47
--- NOTE | 2020-09-05 05:28 | NUR ---
ASSUMED PT CARE AT 1930. ASSESSMENT COMPLETED CHARTED. ABLE TO MAKE NEEDS KNOWN. UP WITH SBA TO BATHROOM. C/O ABD PAIN AND GAVE PRN PAIN MEDCIATION. RESTING IN BED MOST OF THE NIGHT OTHER THAN HAVING NIGHTMARES. SPENT TIME WITH PT AND HE FELL BACK ASLEEP. WILL CONTINUE TO MONITOR.
[2020-09-05 09:00] VITALS: BP 90/50
--- NOTE | 2020-09-05 16:56 | NUR ---
ALERT AND ORIENTED X4. UP WITH STAND BY ASSIST, GAIT BELT AND WALKER. HAS UROSTOMY TUBE/BAG PATENT WITH LIGHT YELLOW URINE WITH SOME SEDIMENT. DR NOTIFIED OF LOW B/P. ZOFRAN GIVEN X1 FOR N/V AND HELPFUL. USES PO PAIN MEDICATION TO HELP WITH PAIN IN FEET. USES CALL LIGHT FOR ASSIST. FALL PRECAUTIONS IN PLACE. BED ALARM AND CHAIR ALARM USED.
[2020-09-05 20:26] VITALS: BP 100/51
[2020-09-06 04:36] LABS: ALBUMIN 2.1 g/dL (3.4-5.0); CALCIUM 8.9 mg/dL (8.5-10.1); CREATININE 1.6 mg/dL (0.6-1.3); POTASSIUM 4.4 mmol/L (3.5-5.1); TOTAL BILIRUBIN 0.3 mg/dL (<0.1-1.0); TOTAL PROTEIN 5.2 g/dL (6.4-8.2)
[2020-09-06 04:41] LABS: HEMATOCRIT 29.1 % (42.0-52.0); HEMOGLOBIN 9.7 gm/dL (14.0-18.0); MCH 30.3 pg (26.0-34.0); MCHC 33.4 g/dL (28.0-37.0); MCV 90.7 fL (80.0-100.0); RBC 3.2 mil/uL (4.50-6.00); RDW-CV 15.1 % (10.5-14.5)
--- NOTE | 2020-09-06 05:10 | NUR ---
ASSUMED PT CARE AT 1930. ASSESSMENT COMPLETED CHARTED. ABLE TO MAKE NEEDS KNOWN. UP WITH SBA WITH WALKER. NO C/O PAIN OR DISCOMFORT IN ABDOMEN SINCE JONELLE REMOVED THIS AFTERNOON. RESTING IN BED MOST OF THE NIGHT AND JUST GOT UP TO RECLINER AT THIS TIME. UROSTOMY EMPTYING YELLOW URINE WITH NO LEAKING NOTED. WILL CONTINUE TO MONITOR.
[2020-09-06 08:30] VITALS: BP 98/52
--- NOTE | 2020-09-06 16:34 | NUR ---
ALERT AND ORIENTED X4. UP WITH STAND BY ASSIST, GAIT BELT AND WALKER. UROSTOMY LEAKING UNDER ABD DRESSING. MIDDLE AREA OF INCISION MOIST. AREA CLEANED AND LEFT OPEN TO AIR. UROSTOMY DRESSING CHANGED. NO MORE LEAKING NOTED. USING CALL LIGHT FOR ASSIST. FALL PRECAUTIONS IN PLACE. BED ALARM AND CHAIR ALARM USED.
--- NOTE | 2020-09-06 17:51 | NUR ---
CM SPOKE TO THE PT AND HIS SPOUSE TO DISCUSS ANY QUESTIONS OR CONCERNS THAT THEY MAY HAVE FOR THIS WEEKS TEAM [facility] MEETING. PT AND SPOUSE HAVE NO QUESTIONS OR CONCERNS AT THIS TIME. CM WILL REMAIN AVAILABLE TO ASSIST AND FOLLOW NEEDED.
[2020-09-06 19:00] VITALS: BP 110/57
--- NOTE | 2020-09-07 01:03 | NUR ---
ASSUMED CARE AT 1915. PATIENT RESTING IN BED. TAKES PILLS WHOLE WITH WATER. UROSTOMY DRAINING TIFFANIE URINE AND APPLIANCE INTACT. MIDLINE INCISION HEALING WELL AND IS STEPHANIE. UROSTOMY APPLIANCE DRESSING CLOSE TO HEALING INCISION, REINFORCED EDGE UROSTOMY DRESSING WITH SMALL TEGADERM DRESSING. NO FURTHER LEAKAGE NOTED. SALINE LOCK TO LT WRIST INTACT. BP 110/57 AT 1999. REFUSED HS SNACK DESPITE EDUCATION. HAS JASMIN CRACKERS AT BEDSIDE. HOURLY ROUNDS CONTINUE. BED ALARM ON. CALL LITE IN REACH.
[2020-09-07 04:39] LABS: CALCIUM 9.3 mg/dL (8.5-10.1); CREATININE 1.6 mg/dL (0.6-1.3); MAGNESIUM 1.7 mg/dL (1.8-2.4); POTASSIUM 4.3 mmol/L (3.5-5.1)
[2020-09-07 04:43] LABS: HEMATOCRIT 29.8 % (42.0-52.0); HEMOGLOBIN 9.9 gm/dL (14.0-18.0); MCHC 33.3 g/dL (28.0-37.0); MCV 90.2 fL (80.0-100.0); MPV 7.1 fl. (7.2-11.1); RBC 3.31 mil/uL (4.50-6.00); WBC 7.7 thou/uL (4.0-11.0)
--- NOTE | 2020-09-07 05:58 | NUR ---
SLEPT MUCH OF SHIFT, AWAKENED BY LAB AND WOKE UP WHEN HE HAD TO USE TOILET TO HAVE BM. ILEO CONDUIT BAG INTACT. 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 NO C/O PAIN. HOURLY ROUNDS CONTINUE. BED ALARM ON. CALL LITE IN REACH.
[2020-09-07 08:01] VITALS: BP 110/59
[2020-09-07 20:09] VITALS: BP 119/63
--- NOTE | 2020-09-07 21:10 | NUR ---
AWAKENED FOR REASSESSMENT AND MEDICATION PASS. DENIES NEED FOR PAIN MEDICATION. CALL LIGHT WITHIN REACH.
[2020-09-08 05:14] LABS: HEMATOCRIT 28.8 % (42.0-52.0); HEMOGLOBIN 9.5 gm/dL (14.0-18.0); MCH 30.3 pg (26.0-34.0); MCHC 33.2 g/dL (28.0-37.0); MCV 91.4 fL (80.0-100.0); RBC 3.15 mil/uL (4.50-6.00); RDW-CV 14.8 % (10.5-14.5)
[2020-09-08 05:21] LABS: CALCIUM 9.1 mg/dL (8.5-10.1); CREATININE 1.5 mg/dL (0.6-1.3); MAGNESIUM 1.6 mg/dL (1.8-2.4); POTASSIUM 4.2 mmol/L (3.5-5.1)
--- NOTE | 2020-09-08 05:36 | NUR ---
RESTED ON/OFF. UP X ONE DURING THE NIGHT TO THE BATHROOM AND HAD A SMALL LOOSE STOOL. TRANSFERS WITH STAND BY ASSIST, GAITBELT, WALKER. HOURLY ROUNDING IN PROGRESS.
[2020-09-08 08:07] VITALS: BP 114/56
[2020-09-08 19:00] VITALS: BP 130/68
[2020-09-09 04:54] LABS: HEMATOCRIT 29.6 % (42.0-52.0); HEMOGLOBIN 9.9 gm/dL (14.0-18.0); MCH 30.4 pg (26.0-34.0); MCHC 33.3 g/dL (28.0-37.0); MCV 91.3 fL (80.0-100.0); MPV 7.4 fl. (7.2-11.1); RBC 3.24 mil/uL (4.50-6.00); RDW-CV 15.4 % (10.5-14.5)
[2020-09-09 05:03] LABS: CALCIUM 9.3 mg/dL (8.5-10.1); CREATININE 1.5 mg/dL (0.6-1.3); MAGNESIUM 1.7 mg/dL (1.8-2.4); POTASSIUM 4.2 mmol/L (3.5-5.1)
--- NOTE | 2020-09-09 05:58 | NUR ---
ASSUMED CARE AT 1920. ALERT AND ORIENTED. PLEASANT. DENIED ANY PAIN. SBA GAIT BELT AND WALKER. UP TO BATHROOM. HAD LOOSE STOOLS X 2. UROSTOMY IN PLACE DRAINING YELLOW URINE. ZOFRAN GIVEN FOR NAUSEA WITH RELIEF. MIDLINE ABD INCISION HEALING, BUT THERE IS TINY SPOT WITH MINIMAL SEROUS DRAINAGE. SLEPT LITTLE OFF AND ON. CALL LIGHT IN REACH AND BED ALARM ON.
[2020-09-09 08:10] VITALS: BP 111/64
[2020-09-09 10:27] VITALS: BP 111/64
[2020-09-09 11:46] VITALS: BP 111/64
--- NOTE | 2020-09-09 13:16 | NUR ---
PATIENT DISCHARGED AT THIS TIME WITH HOME HEALTH. IV DC'D. UROSTOMY BAG CHANGED THIS AM DURING REPORT. PATIENT AND VERBALIZE UNDERSTANDING OF PAPERWORK, NO SCRIPTS. PATIENT TAKEN OUT VIA WHEELCHAIR WITH ALL BELONGINGS.
--- NOTE | 2020-09-09 13:52 | NUR ---
TEAM [facility] MEETING HELD YESTERDAY. PT MADE SIGNIFICANT PROGRESS TOWARDS GOALS. TEAM DECISION: PT TO D/C HOME TODAY WITH HH. PT AND SPOUSE IN AGREEMENT WITH THE PLAN. PT AND SPOUSE REQUEST HH WITH [facility]. CM FAXED CLINICAL INFO AND D/C ORDERS TO [facility]. CM WILL REMAIN AVAILABLE TO ASSIST AND FOLLOW NEEDED. [facility] PHONE: [phone] FAX: [phone]
== END 2020-09-09 13:17 | disposition home health service (06) | DRG 947 ==
LOC: M.REH 14:48
PROVIDERS: Family Medicine; Internal Medicine; Surgery; ADMIT Physical Medicine & Rehabilitation; ATTEND Physical Medicine & Rehabilitation
DX: R53.81 Other malaise (principal); K56.2 Volvulus; N17.0 Acute kidney failure with tubular necrosis; I21.A1 Myocardial infarction type 2; A41.9 Sepsis, unspecified organism; R65.21 Severe sepsis with septic shock; D62 Acute posthemorrhagic anemia; N13.0 Hydronephrosis with ureteropelvic junction obstruction; E87.2 Acidosis; N39.0 Urinary tract infection, site not specified; N18.30 Chronic kidney disease, stage 3 unspecified; E86.0 Dehydration; K75.89 Other specified inflammatory liver diseases; I12.9 Hypertensive chronic kidney disease with stage 1 through stage 4 chronic kidney disease, or unspecified chronic kidney disease; E87.5 Hyperkalemia; G25.81 Restless legs syndrome; I25.10 Atherosclerotic heart disease of native coronary artery without angina pectoris; E11.9 Type 2 diabetes mellitus without complications; B96.89 Other specified bacterial agents as the cause of diseases classified elsewhere; Z85.51 Personal history of malignant neoplasm of bladder; Z85.46 Personal history of malignant neoplasm of prostate; Z88.8 Allergy status to other drugs, medicaments and biological substances

== ENCOUNTER 2020-09-20 12:31 | Inpatient (IN) | payer MEDICARE ==
[~2020-09-20] VITALS: Ht 172.7 cm; Wt 65.9 kg
[2020-09-20 13:57] VITALS: BP 118/69
[2020-09-20 15:41] LABS: ABSOLUTE BASOPHILS 0.1 thou/uL (0.0-0.2); ABSOLUTE EOSINOPHILS 0.1 thou/uL (0.0-0.7); ABSOLUTE LYMPHOCYTES 2.2 thou/uL (0.8-5.3); ABSOLUTE NEUTROPHILS 8.2 thou/uL (1.6-8.1); BASOPHILS 0.5 %; EOSINOPHILS 0.6 %; HEMATOCRIT 35.3 % (42.0-52.0); HEMOGLOBIN 11.4 gm/dL (14.0-18.0); LYMPHOCYTES 19.1 %; MCH 30.2 pg (26.0-34.0); MCHC 32.4 g/dL (28.0-37.0); MCV 93.2 fL (80.0-100.0); MPV 8.4 fl. (7.2-11.1); NUCLEATED RBCS 0 /100WBC; PLATELET COUNT* 243 thou/uL (150-400); POLYS 70.8 %; RBC 3.78 mil/uL (4.50-6.00); RDW-CV 15.5 % (10.5-14.5); WBC 11.6 thou/uL (4.0-11.0)
[2020-09-20 15:50] LABS: CREATININE 1.8 mg/dL (0.6-1.3)
[2020-09-20 15:55] LABS: ALBUMIN 3.1 g/dL (3.4-5.0); TOTAL BILIRUBIN 0.4 mg/dL (<0.1-1.0); TOTAL PROTEIN 6.7 g/dL (6.4-8.2)
[2020-09-20 15:56] LABS: CALCIUM 12.6 mg/dL (8.5-10.1)
[2020-09-20 18:37] LABS: URINE BILIRUBIN NEGATIVE (Negative); URINE BLOOD TRACE (Negative); URINE COLOR YELLOW; URINE GLUCOSE-RANDOM NEGATIVE (Negative); URINE KETONES NEGATIVE (Negative); URINE PROTEIN 2+ (Negative); URINE UROBILINOGEN 0.2 E.U./dl (0.2-1.0)
[2020-09-20 18:39] LABS: URINE CLARITY HAZY; URINE LEUKOCYTES-REFLEX 3+ (Negative); URINE NITRITE-REFLEX POSITIVE (Negative)
[2020-09-20 18:42] LABS: SQUAMOUS 0-3 Few /LPF (0-3)
[2020-09-20 18:43] LABS: BACTERIA-REFLEX >30 Many /HPF (None Seen); CASTS None Seen /LPF (None Seen); CRYSTALS None Seen /LPF (None Seen); URINE RBC 0-2 Rare /HPF (0-2); URINE WBC-REFLEX 6-15 Few /HPF (0-5)
[2020-09-20 20:09] VITALS: BP 121/70
[2020-09-20 20:30] VITALS: BP 105/53
[2020-09-21 00:52] VITALS: BP 95/84
[2020-09-21 04:01] VITALS: BP 96/52
[2020-09-21 07:21] LABS: ABSOLUTE EOSINOPHILS 0.3 thou/uL (0.0-0.7); ABSOLUTE LYMPHOCYTES 1.4 thou/uL (0.8-5.3); ABSOLUTE MONOCYTES 0.7 thou/uL (0.0-1.2); ABSOLUTE NEUTROPHILS 4.4 thou/uL (1.6-8.1); BASOPHILS 0.4 %; EOSINOPHILS 3.8 %; HEMATOCRIT 28.1 % (42.0-52.0); HEMOGLOBIN 9.5 gm/dL (14.0-18.0); LYMPHOCYTES 20.8 %; MCH 30.6 pg (26.0-34.0); MCHC 33.9 g/dL (28.0-37.0); MCV 90.2 fL (80.0-100.0); MONOCYTES 10.6 %; MPV 7.8 fl. (7.2-11.1); NUCLEATED RBCS 0 /100WBC; PLATELET COUNT* 209 thou/uL (150-400); POLYS 64.4 %; RBC 3.12 mil/uL (4.50-6.00); RDW-CV 15.3 % (10.5-14.5); WBC 6.8 thou/uL (4.0-11.0)
[2020-09-21 07:29] LABS: CALCIUM 11.1 mg/dL (8.5-10.1); CREATININE 1.5 mg/dL (0.6-1.3); POTASSIUM 4.1 mmol/L (3.5-5.1)
[2020-09-21 12:00] VITALS: BP 128/61
--- NOTE | 2020-09-21 12:01 | EKG ---
[place] [address] ELECTROCARDIOGRAM REPORT Name: ERLINDA CRUZ Room: [address] ADM IN [facility]#: [id number] Admission: 09/20/20 Attend Phys: Jerry Walker Discharge: Date of : 39 Date of Service: 09/20/20 1529 Report #: [id number] THIS REPORT FOR: //name// [facility] ED Test Date: 2020-09-20 Test Time: 15:29:36 Pat Name: ERLINDA CRUZ Department: Room: [facility] Gender: M Virologist: YSABEL : 1935 Requested By: Taylor Pagan Order Number: [id number] MD: Ramon Green Measurements Intervals [place] Rate: 87 P: 24 CT: 197 QRS: 72 QRSD: 146 T: -16 QT: 405 QTc: 488 Interpretive Statements Sinus rhythm Right bundle branch block Possible inferior infarct, age indeterminate Compared to ECG 08/19/2020 10:47:08 Sinus tachycardia no longer present Myocardial infarct finding still present Electronically Signed On 09-21-2020 12:01:03 CDT by Ramon Green [email or web address] <ELECTRONICALLY SIGNED> By: Ramon Green MD, [facility] 09/21/20 1201 1529 1529 Ramon Green MD, FAC /EPI
--- NOTE | 2020-09-21 12:40 | EKG ---
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: : 1935 Requested By: Jerry Walker Order Number: [id number] MD: Ramon Green Measurements Intervals [place] Rate: 75 P: 37 ME: 215 QRS: 69 QRSD: 148 T: 12 QT: 417 QTc: 466 Interpretive Statements Sinus rhythm Borderline prolonged ME interval Right bundle branch block Compared to ECG 09/20/2020 15:29:36 Myocardial infarct finding no longer present Electronically Signed On 09-21-2020 12:40:00 CDT by Ramon Green [email or web address] <ELECTRONICALLY SIGNED> By: Ramon Green MD, [facility] 09/21/20 1240 0846 0846 Ramon Green MD, [facility] /EPI
[2020-09-21 16:00] VITALS: BP 95/44
[2020-09-21 20:04] VITALS: BP 108/52
[2020-09-22] VITALS: BP 98/53
[2020-09-22 04:00] VITALS: BP 111/54
[2020-09-22 04:49] LABS: HEMOGLOBIN 8.5 gm/dL (14.0-18.0); MCH 30.3 pg (26.0-34.0); MCV 89.1 fL (80.0-100.0); MPV 7.8 fl. (7.2-11.1); RBC 2.8 mil/uL (4.50-6.00); RDW-CV 14.7 % (10.5-14.5); WBC 7.1 thou/uL (4.0-11.0)
[2020-09-22 05:04] LABS: CALCIUM 10.6 mg/dL (8.5-10.1); CREATININE 1.3 mg/dL (0.6-1.3); MAGNESIUM 1.7 mg/dL (1.8-2.4); PHOSPHORUS* 3.7 mg/dL (2.5-4.9); POTASSIUM 3.7 mmol/L (3.5-5.1)
[2020-09-22 08:00] VITALS: BP 99/60
[2020-09-22 13:03] VITALS: BP 99/60
[2020-09-22 17:02] VITALS: BP 99/60
== END 2020-09-22 17:16 | disposition home health service (06) | DRG 640 ==
LOC: M.ERS 12:31 → M.TBA-ER 16:30 → M.2W 16:30
PROVIDERS: Nurse Practitioner Family; ADMIT Internal Medicine; ATTEND Internal Medicine
DX: E83.52 Hypercalcemia (principal); N17.0 Acute kidney failure with tubular necrosis; E44.0 Moderate protein-calorie malnutrition; I10 Essential (primary) hypertension; E78.5 Hyperlipidemia, unspecified; G25.81 Restless legs syndrome; I25.10 Atherosclerotic heart disease of native coronary artery without angina pectoris; K21.9 Gastro-esophageal reflux disease without esophagitis; M54.9 Dorsalgia, unspecified; E11.9 Type 2 diabetes mellitus without complications; G89.29 Other chronic pain; E86.0 Dehydration; Z20.822 Contact with and (suspected) exposure to COVID-19; Z95.1 Presence of aortocoronary bypass graft; Z90.49 Acquired absence of other specified parts of digestive tract; Z85.46 Personal history of malignant neoplasm of prostate; Z92.3 Personal history of irradiation; Z85.51 Personal history of malignant neoplasm of bladder; Z79.899 Other long term (current) drug therapy; Z88.8 Allergy status to other drugs, medicaments and biological substances; Z68.22 Body mass index [BMI] 22.0-22.9, adult

== ENCOUNTER → 2020-10-25 | Outpatient (CLI) | payer MEDICARE ==
[2020-10-25 11:15] LABS: ABSOLUTE EOSINOPHILS 0.1 thou/uL (0.0-0.7); ABSOLUTE MONOCYTES 0.8 thou/uL (0.0-1.2); ABSOLUTE NEUTROPHILS 5.1 thou/uL (1.6-8.1); BASOPHILS 0.4 %; EOSINOPHILS 0.8 %; HEMATOCRIT 34.6 % (42.0-52.0); HEMOGLOBIN 11.8 gm/dL (14.0-18.0); LYMPHOCYTES 24.6 %; MCH 30.8 pg (26.0-34.0); MCV 90.6 fL (80.0-100.0); MONOCYTES 9.9 %; MPV 7.4 fl. (7.2-11.1); NUCLEATED RBCS 0 /100WBC; PLATELET COUNT* 287 thou/uL (150-400); POLYS 64.3 %; RBC 3.83 mil/uL (4.50-6.00); RDW-CV 16.2 % (10.5-14.5)
[2020-10-25 11:31] LABS: ALBUMIN 2.7 g/dL (3.4-5.0); CREATININE 1.6 mg/dL (0.6-1.3); TOTAL BILIRUBIN 0.3 mg/dL (<0.1-1.0); TOTAL PROTEIN 6.8 g/dL (6.4-8.2)
[2020-10-25 11:38] LABS: CALCIUM 12.1 mg/dL (8.5-10.1)
== END ==
LOC: M.LAB 10:14 → M.ULTRA 11:00
PROVIDERS: ATTEND Nurse Practitioner Family
DX: E83.52 Hypercalcemia (principal); R79.89 Other specified abnormal findings of blood chemistry; E78.2 Mixed hyperlipidemia; D64.9 Anemia, unspecified

== ENCOUNTER 2020-11-04 11:48 | Inpatient (IN) | payer MEDICARE ==
[~2020-11-04] VITALS: Ht 152.4 cm; Wt 59.9 kg
[2020-11-04] VITALS (7 sets, daily range): BP systolic 78–101; BP diastolic 43–67
[2020-11-04 12:32] LABS: ABSOLUTE NEUTROPHILS 10.7 thou/uL (1.6-8.1); BASOPHILS 0.1 %; HEMOGLOBIN 12.2 gm/dL (14.0-18.0); LYMPHOCYTES 14.7 %; MCH 31.1 pg (26.0-34.0); MCHC 33.9 g/dL (28.0-37.0); MPV 7.6 fl. (7.2-11.1); NUCLEATED RBCS 0 /100WBC; PLATELET COUNT* 301 thou/uL (150-400); POLYS 78.2 %; RBC 3.91 mil/uL (4.50-6.00); RDW-CV 15.8 % (10.5-14.5); WBC 13.7 thou/uL (4.0-11.0)
[2020-11-04 12:40] LABS: CREATININE 2.2 mg/dL (0.6-1.3); POTASSIUM 4.6 mmol/L (3.5-5.1)
[2020-11-04 12:41] LABS: CALCIUM 12.1 mg/dL (8.5-10.1)
[2020-11-04 12:44] LABS: URINE CLARITY SL HAZY; URINE COLOR YELLOW; URINE GLUCOSE-RANDOM NEGATIVE (Negative); URINE PROTEIN 1+ (Negative); URINE SPECIFIC GRAVITY 1.015 (1.005-1.030)
[2020-11-04 12:45] LABS: ALBUMIN 2.7 g/dL (3.4-5.0); TOTAL BILIRUBIN 0.7 mg/dL (<0.1-1.0); TOTAL PROTEIN 6.7 g/dL (6.4-8.2)
[2020-11-04 12:45] LABS: URINE BILIRUBIN NEGATIVE (Negative); URINE BLOOD 1+ (Negative); URINE KETONES TRACE (Negative); URINE LEUKOCYTES-REFLEX 3+ (Negative); URINE NITRITE-REFLEX NEGATIVE (Negative); URINE UROBILINOGEN 0.2 E.U./dl (0.2-1.0)
[2020-11-04 12:47] LABS: BACTERIA-REFLEX >30 Many /HPF (None Seen); CASTS None Seen /LPF (None Seen); MUCUS 0-3 Light strn/LPF (None Seen); SQUAMOUS 0-3 Few /LPF (0-3); URINE RBC 3-10 Few /HPF (0-2); URINE WBC-REFLEX >25 Many /HPF (0-5)
[2020-11-04 12:48] LABS: CRYSTALS None Seen /LPF (None Seen)
--- NOTE | 2020-11-04 15:23 | EKG ---
[place] [address] ELECTROCARDIOGRAM REPORT Name: NANCYERLINDA EUCEDA Room: [address] AD[address] IN [facility]#: [id number] Admission: 11/04/20 Attend Phys: Ilya Lake Discharge: Date of : 39 Date of Service: 11/04/20 1215 Report #: [id number] THIS REPORT FOR: //name// [facility] ED Test Date: 2020-11-04 Test Time: 12:15:11 Pat Name: ERLINDA CRUZ Department: Room: [facility] Gender: M Lasting Room Supervisor: GELA : 1935 Requested By: Jefferson Curiel Order Number: [id number] MD: Bubba Crowley Measurements Intervals [place] Rate: 99 P: 44 KS: 197 QRS: 72 QRSD: 141 T: -5 QT: 371 QTc: 477 Interpretive Statements Sinus rhythm Right bundle branch block Compared to ECG 09/21/2020 08:46:03 No significant changes Electronically Signed On 11-04-2020 15:23:48 CDT by Bubba Crowley [email or web address] <ELECTRONICALLY SIGNED> By: Bubba Crowley MD, [facility] 11/04/20 1523 1215 1215 Bubba Crowley MD, [facility] /EPI
[2020-11-05 01:42] VITALS: BP 87/42
[2020-11-05 04:29] LABS: HEMATOCRIT 26.7 % (42.0-52.0); MCH 31.6 pg (26.0-34.0); MCHC 34.4 g/dL (28.0-37.0); MCV 91.9 fL (80.0-100.0); MPV 7.6 fl. (7.2-11.1); RBC 2.91 mil/uL (4.50-6.00); RDW-CV 15.5 % (10.5-14.5)
[2020-11-05 04:30] LABS: HEMOGLOBIN 9.2 gm/dL (14.0-18.0)
[2020-11-05 04:39] LABS: CREATININE 1.6 mg/dL (0.6-1.3)
[2020-11-05 04:41] LABS: CALCIUM 10.1 mg/dL (8.5-10.1); POTASSIUM 3.4 mmol/L (3.5-5.1)
[2020-11-05 06:26] VITALS: BP 74/43
[2020-11-05 08:10] VITALS: BP 75/41
[2020-11-05 20:15] VITALS: BP 95/56
[2020-11-06 05:22] LABS: MCH 31.4 pg (26.0-34.0); MCHC 34.5 g/dL (28.0-37.0); MCV 90.8 fL (80.0-100.0); MPV 7.9 fl. (7.2-11.1); RBC 2.86 mil/uL (4.50-6.00); WBC 5.7 thou/uL (4.0-11.0)
[2020-11-06 05:36] LABS: CREATININE 1.5 mg/dL (0.6-1.3); POTASSIUM 3.2 mmol/L (3.5-5.1)
[2020-11-06 07:43] VITALS: BP 90/50
[2020-11-06 13:35] VITALS: BP 90/50
[2020-11-06 14:58] VITALS: BP 90/50
[2020-11-06 16:40] VITALS: BP 96/54
[2020-11-06 17:52] VITALS: BP 90/50
== END 2020-11-06 17:38 | disposition home health service (06) | DRG 871 ==
LOC: M.ERS 11:48 → M.ORTHSURG 13:47 → M.TBA-ER 13:47 → M.ORTHSURG 14:52 → M.3W 11-05 19:00
PROVIDERS: Family Medicine; Physician Assistant; ADMIT Internal Medicine; ATTEND Internal Medicine
DX: A41.9 Sepsis, unspecified organism (principal); N17.0 Acute kidney failure with tubular necrosis; E87.2 Acidosis; E87.1 Hypo-osmolality and hyponatremia; G25.81 Restless legs syndrome; I25.10 Atherosclerotic heart disease of native coronary artery without angina pectoris; E78.5 Hyperlipidemia, unspecified; E83.52 Hypercalcemia; I10 Essential (primary) hypertension; E11.65 Type 2 diabetes mellitus with hyperglycemia; K21.9 Gastro-esophageal reflux disease without esophagitis; R62.7 Adult failure to thrive; Z20.822 Contact with and (suspected) exposure to COVID-19; Z95.1 Presence of aortocoronary bypass graft; Z90.49 Acquired absence of other specified parts of digestive tract; Z85.46 Personal history of malignant neoplasm of prostate; Z92.3 Personal history of irradiation; Z85.51 Personal history of malignant neoplasm of bladder; Z79.899 Other long term (current) drug therapy; Z88.8 Allergy status to other drugs, medicaments and biological substances; Z68.25 Body mass index [BMI] 25.0-25.9, adult

== ENCOUNTER 2021-01-14 09:25 | Emergency (ER) | payer MEDICARE | END 2021-01-14 09:42 | disposition left against medical advice (07) | LOC: M.ERS 09:25 | DX: I95.9 Hypotension, unspecified (principal); Z53.21 Procedure and treatment not carried out due to patient leaving prior to being seen by health care provider ==